=== PATIENT | female | born 1975 | race Two or more races ===

== ENCOUNTER 2020-03-24 11:59 | Inpatient (IN) | payer BC ==
[~2020-03-24] VITALS: Ht 160 cm; Wt 97.9 kg
--- NOTE | 2020-03-24 12:55 | PHYS DOC ---
General Adult EDM: Chief Complaint: HYPERTENSION HPI: HPI: Patient is a 45 year old female with history of diabetes type 2, hypertension, who presents to the ED today complaining of high blood pressure and left upper extremity pain. Patient states this morning she went to see her doctor and she was told her blood pressure systolic was in the 200s and sent to the ED to be evaluated. Patient states she was complaining of left arm pain and chills when she went to see the doctor. Denies any chest pain. Denies any injury. Denies any shortness of breath. She is also stating she had left eye surgery roughly 2 weeks ago and the left eye is still dilated. Review of Systems: Review of Systems: Constitutional: Denies fever or chills. [] Eyes: Reports left eye surgery. Denies change in visual acuity. [] HENT: Denies nasal congestion or sore throat. [] Respiratory: Denies cough or shortness of breath. [] Cardiovascular: Reports high blood pressure. Reports left arm pain, denies any chest pain. GI: Denies abdominal pain, nausea, vomiting, bloody stools or diarrhea. [] : Denies dysuria. [] Musculoskeletal: Denies back pain or joint pain. [] Integument: Denies rash. [] Neurologic: Denies headache, focal weakness or sensory changes. [] Psychiatric: Denies depression or anxiety. [] Heart Score: Risk Factors: Risk Factors: DM, Current or recent (<one month) smoker, HTN, HLP, family h istory of CAD, obesity. Risk Scores: Score 0 - 3: 2.5% MACE over next 6 weeks - Discharge Home Score 4 - 6: 20.3% MACE over next 6 weeks - Admit for Clinical Observation Score 7 - 10: 72.7% MACE over next 6 weeks - Early Invasive Strategies Physical Exam: PE: Constitutional: Well developed, well nourished, no acute distress, non-toxic appearance. [] HENT: Normocephalic, atraumatic, bilateral external ears normal, oropharynx moist, no oral exudates, nose normal. [] Eyes:Right eye- PERRLA, EOMI, conjunctiva normal, no discharge. Left eye is dilated at approximately 3 in size and non responsive to light Neck: Normal range of motion, no tenderness, supple, no stridor. [] Cardiovascular:Heart rate regular rhythm, no murmur [] Lungs & Thorax: Bilateral breath sounds clear to auscultation [] Abdomen: Bowel sounds normal, soft, no tenderness, no masses, no pulsatile masses. [] Skin: Warm, dry, no erythema, no rash. [] Back: No tenderness, no CVA tenderness. [] Extremities: No tenderness, no cyanosis, no clubbing, ROM intact, no edema. [] Neurologic: Alert and oriented X 3, normal motor function, normal sensory function, no focal deficits noted. Cranial nerves II through XII intact Psychologic: Affect normal, judgement normal, mood normal. [] EKG: EKG: [] Radiology/Procedures: Radiology/Procedures: [] Course & Med Decision Making: Course & Med Decision Making Pertinent Labs and Imaging studies reviewed. (See chart for details) This is a 45-year-old female patient presenting to the ED today to be evaluated for left arm pain and high blood pressure that was recorded at the doctor's office a couple minutes prior to coming to the ED. Systolic BP was 200. She is also concerned about her left eye that she had surgery on 2 weeks ago, she has an appointment with antenna specialist on April 01, 2020. Blood pressure on arrival to the ED was 157/66 with a heart rate of 86. CBC with a hemoglobin of 8.0 hematocrit of 23.1, CMP with potassium of 5.9, no EKG changes, BUN 33, creatinine 2.1, patient denies any history of renal failure this is a very poor historian and language barrier is an issue. Blood glucose 363. Patient was given IV fluids in the ED, given Kayexalate. Nephrology was consulted. Spoke with Dr. Ferraro who accepted patient for admission Renard Disclaimer: Renard Disclaimer: This electronic medical record was generated, in whole or in part, using a voice recognition dictation system. Departure Departure Impression: Primary Impression: Hypertension Qualified Codes: I10 - Essential (primary) hypertension Additional Impressions: Acute on chronic renal failure Qualified Codes: N17.9 - Acute kidney failure, unspecified; N18.9 - Chronic kidney disease, unspecified Hyperglycemia Disposition: 09 ADMITTED INPT THIS HOSP Condition: STABLE Referrals: NON,STAFF (PCP) STEFFANY FREDERICK APRN Mar 24, 2020 12:55
--- NOTE | 2020-03-24 13:11 | RAD ---
PORTABLE CHEST 1V History: Reason: high blood pressure / Spl. Instructions: / History: Comparison: None. Findings: No consolidation or pleural effusion. Normal heart size. No pneumothorax. Impression: 1. No acute cardiopulmonary process. Electronically signed by: Venancio Meyers DO (03/24/2020 1:08 PM) [id number]
[2020-03-24 13:17] LABS: BASO # 0.1 x10^3/uL (0.0-0.2); BASO % 1 % (0-3); EOS # 0.6 x10^3/uL (0.0-0.7); EOS % 6 % (0-3); HEMATOCRIT 23.1 % (36.0-47.0); LYMPH # 1.8 x10^3/uL (1.0-4.8); LYMPH % 18 % (24-48); MEAN CORPUSCULAR HEMOGLOBIN 30 pg (25-35); MEAN CORPUSCULAR HGB CONC 35 g/dL (31-37); MEAN CORPUSCULAR VOLUME 85 fL (79-100); MONO # 0.3 x10^3/uL (0.0-1.1); MONO % 3 % (0-9); NEUT # 7.4 x10^3/uL (1.8-7.7); NEUT % 73 % (31-73); PLATELET COUNT 187 x10^3/uL (140-400); RED BLOOD COUNT 2.71 x10^6/uL (3.50-5.40); RED CELL DISTRIBUTION WIDTH 14.7 % (11.5-14.5); WHITE BLOOD COUNT 10.1 x10^3/uL (4.0-11.0)
--- NOTE | 2020-03-24 13:22 | RAD ---
CT HEAD WO CONTRAST Date: 03/24/2020 1:09 PM Clinical Indication: Reason: HTN / Spl. Instructions: / History: Comparison: None. Technique: 5 mm axial tomographic images were obtained of the head without contrast. These were viewed on brain and bone windows. One or more of the following dose reduction techniques were utilized: Automated exposure control (AEC), Adjustment of mA and/or kV according to patient size, Use of iterative reconstruction technique such as ASiR, CT scan done according to ALARA and image gently/image wisely Findings: The brain parenchyma is normal in attenuation. No intra- or extra-axial mass or fluid collection. No acute hemorrhage. The ventricles are normal in size, shape, and morphology. The terrell-white matter junction is normal. The subarachnoid cisterns are patent. Frothy secretions in the right maxillary sinus. Left maxillary sinus mucus retention cyst. The visualized portions of the orbits and globes are normal. The mastoid air cells are clear. The shirt ironer supervisor topogram shows no lytic lesion or fracture. Impression: No acute intracranial process. Frothy secretions in the right maxillary sinus, which could represent acute sinusitis in the appropriate clinical setting. Electronically signed by: Sebastian Santana MD (03/24/2020 1:19 PM) [id number]
[2020-03-24 13:29] LABS: CALCIUM 8.8 mg/dL (8.5-10.1); CREATININE 2.1 mg/dL (0.6-1.0); GFR 25.2; POTASSIUM 5.9 mmol/L (3.5-5.1)
[2020-03-24 13:33] LABS: PROTHROMBIN TIME PATIENT 12.4 SEC (11.7-14.0)
[2020-03-24 13:37] LABS: ALBUMIN 2.7 g/dL (3.4-5.0); ALBUMIN/GLOBULIN RATIO 0.7 (1.0-1.7); MAGNESIUM 2.3 mg/dL (1.8-2.4); TOTAL BILIRUBIN 0.3 mg/dL (0.2-1.0); TOTAL PROTEIN 6.7 g/dL (6.4-8.2)
[2020-03-24 13:44] LABS: BILIRUBIN,URINE NEGATIVE (NEG); CLARITY,URINE CLOUDY; COLOR,URINE YELLOW; NITRITE,URINE NEGATIVE (NEG); PROTEIN,URINE >=300 mg/dL (NEG-TRACE); UROBILINOGEN,URINE 0.2 mg/dL (0.2 mg/dL)
[2020-03-24 13:51] LABS: BARBITURATES NEG (NEG); BENZODIAZEPINES NEG (NEG); CANNABINOIDS NEG (NEG); COCAINE NEG (NEG); METHADONE NEG (NEG); OPIATES NEG (NEG); PHENCYCLIDINE NEG (NEG)
[2020-03-24 13:53] LABS: AMPHETAMINE/METHAMPHETAMINE NEG (NEG)
[2020-03-24 14:01] LABS: BACTERIA,URINE MANY /HPF (0-FEW); HYALINE CASTS, URINE FEW /HPF; RBC,URINE TNTC /HPF (0-2); WBC,URINE >40 /HPF (0-4)
[2020-03-24] MEDS ORDERED: IV NORMAL SALINE 1000ML BAG 1,000 ML IV ONE ×2 (16:15)
[2020-03-24] MEDS ORDERED: ONDANSETRON PF 4 MG/2 ML VIAL. IV PRN (16:15)
[2020-03-24] MEDS ORDERED: MORPHINE SULFATE 2 MG/ML VIAL. IV PRN (16:15)
[2020-03-24] MEDS ORDERED: SODIUM POLYSTYRENE SULFON/SORB 15 GM/60 ML ORAL.SUSP. PO ONE (16:15)
[2020-03-24] MEDS ORDERED: LABETALOL 20 MG/4 ML DISP.SYRIN. IVP ONE (16:45)
[2020-03-24] MEDS ORDERED: SENNOSIDES 8.6 MG TABLET PO PRN (18:00)
[2020-03-24] MEDS ORDERED: POTASSIUM CHLORIDE 20 MEQ TABLET.ER. PO PRN (18:00)
[2020-03-24] MEDS ORDERED: DOCUSATE SODIUM 100 MG CAPSULE. PO PRN (18:00)
[2020-03-24] MEDS ORDERED: MAGNESIUM SULFATE 2GM 50 ML IV SCH (18:00)
[2020-03-24] MEDS ORDERED: DEXTROSE 50% 25 GM / 50ML DISP.SYRIN. IV PRN (18:00)
[2020-03-24] MEDS ORDERED: POTASSIUM CHLORIDE 10MEQ 100 ML IV PRN (18:00)
[2020-03-24] MEDS ORDERED: ONDANSETRON PF 4 MG/2 ML VIAL. IVP PRN (18:00)
[2020-03-24] MEDS ORDERED: ACETAMINOPHEN 650 MG/20.3 ML SOLUTION. GT PRN (18:00)
[2020-03-24] MEDS ORDERED: LABETALOL 20 MG/4 ML DISP.SYRIN. IVP PRN (18:00)
[2020-03-24] MEDS ORDERED: FUROSEMIDE 40 MG/4 ML VIAL. IVP ONE (18:00)
[2020-03-24] MEDS ORDERED: POTASSIUM CHLORIDE 10MEQ 100 ML IV SCH (18:00)
--- NOTE | 2020-03-24 18:07 | PDOC1 ---
History and Physical Date of Service: DOS: DATE: 03/24/20 TIME: 17:55 Chief Complaint: Chief Complain: Elevated blood pressure History of Present Illness: HPI: 45 year old Libyan-speaking female with history of diabetes type 2, hypertension, who presents to the ED today complaining of high blood pressure and left upper extremity pain. Patient states this morning she went to see her doctor and she was told her blood pressure systolic was in the 200s and sent to the ED to be evaluated. Patient states she was complaining of left arm pain and chills when she went to see the doctor. Denies any chest pain. Denies any injury. Denies any shortness of breath. She is also stating she had left eye surgery roughly 2 weeks ago and the left eye is still dilated. Patient is comp liant with all her medications and she did not miss any of her lisinopril dose. Of note, patient also states that she has been having heavy menstrual bleeding in the past 3 months. She states that she was seen by her production team manager and they recommended possible surgery. Past Medical/Surgical History: PMH/PSH: Diabetes type 2 insulin-dependent Hypertension Allergies: Allergies: Coded Allergies: No Known Drug Allergies (Unverified , 03/24/20) Family History: Family History: Reviewed and none reported Social History: Social History: Denies alcohol, tobacco, drug abuse Current Medications: Current Medications Current Medications Ondansetron HCl (Zofran) 4 mg PRN Q8HRS PRN IV NAUSEA/VOMITING; Start 03/24/20 at 16:15; Stop 03/25/20 at 16:14 Morphine Sulfate (Morphine Sulfate) 2 mg PRN Q2HR PRN IV PAIN; Start 03/24/20 at 16:15; Stop 03/25/20 at 16:14 Sodium Chloride 1,000 ml @ 125 mls/hr 1X ONCE IV ; Start 03/24/20 at 16:15; Stop 03/25/20 at 00:14 Sodium Polystyrene Sulfonate (Kayexalate) 30 gm 1X ONCE PO Last administered on 03/24/20at 16:54; Start 03/24/20 at 16:15; Stop 03/24/20 at 16:16; Status DC Sodium Chloride 1,000 ml @ 1,000 mls/hr 1X ONCE IV Last administered on 03/24/20at 16:54; Start 03/24/20 at 16:15; Stop 03/24/20 at 17:14; Status DC Labetalol HCl (Normodyne Iv Push) 20 mg 1X ONCE IVP Last administered on 03/24/20at 16:55; Start 03/24/20 at 16:45; Stop 03/24/20 at 16:46; Status DC ROS: Review of Systems Review of System REVIEW OF SYSTEMS: GENERAL: Denies weakness SKIN: No bruising, hair changes or rashes. EYES: No blurred, double or loss of vision. NOSE AND THROAT: No history of nosebleeds, hoarseness or sore throat. HEART: No history of palpitations, chest pain or shortness of breath on exertion. LUNGS: Denies cough, hemoptysis, wheezing or shortness of breath. GASTROINTESTINAL: Denies changes in appetite, nausea, vomiting, diarrhea or constipation. GENITOURINARY: No history of frequency, urgency, hesitancy or nocturia. NEUROLOGIC: Denies history of numbness, tingling, or tremor. PSYCHIATRIC: No history of panic, anxiety or depression. ENDOCRINE: No history of heat or cold intolerance, polyuria or polydipsia. EXTREMITIES: Denies joint pain, pain on walking or stiffness. Physical Exam: Vital Signs: Vital Signs Date Time Temp Pulse Resp B/P (MAP) Pulse Ox O2 Delivery O2 Flow Rate FiO2 03/24/20 16:55 86 190/83 03/24/20 15:53 97 03/24/20 11:59 97.9 16 Room Air 97.9 Physcial Exam: GEN: No apparent distress. Alert and oriented HEENT: Normal cephalic, atraumatic, external auditory canals are patent EYES: Extraocular muscles are intact, pupil are equally round and reactive to light and accommodation MUSCULOSKELETAL: Well developed , well nourished, good range of motion ENDOCRINE: No thyromegaly was palpated LYMPHATICS: No cervical chain or axillary nodes were noted HEMATOPOIETIC: No bruising NECK: Supple, no JVD, no thyromegaly was noted LUNGS: Clear to auscultation in all lung cabrera without rhonchi or wheezing HEART: RRR, S!, S2 present. Peripheral pulses intact, no obvious murmurs noted ABDOMEN: Soft, nontender. Positive bowel sounds, no organomegaly, normal bowel sounds EXTREMITIES: Without clubbing, cyanosis, or edema. Pedal pulses intact. Negative Homans sign NEUROLOGIC: Normal speech and tone. A&O x 3, moves all extremities, no obvious focal deficits PSYCHIATRIC: Normal affect, normal mood. Stable SKIN: No ulcerations or rashes, good skin turgor, no jaundice VASCULAR: Good capillary refill, neurovascular bundle appears to be intact Labs: Labs: Laboratory Tests Test 03/24/20 13:00 03/24/20 13:20 White Blood Count 10.1 x10^3/uL (4.0-11.0) Red Blood Count 2.71 x10^6/uL (3.50-5.40) Hemoglobin 8.0 g/dL (12.0-15.5) Hematocrit 23.1 % (36.0-47.0) Mean Corpuscular Volume 85 fL (79-100) Mean Corpuscular Hemoglobin 30 pg (25-35) Mean Corpuscular Hemoglobin Concent 35 g/dL (31-37) Red Cell Distribution Width 14.7 % (11.5-14.5) Platelet Count 187 x10^3/uL (140-400) Neutrophils (%) (Auto) 73 % (31-73) Lymphocytes (%) (Auto) 18 % (24-48) Monocytes (%) (Auto) 3 % (0-9) Eosinophils (%) (Auto) 6 % (0-3) Basophils (%) (Auto) 1 % (0-3) Neutrophils # (Auto) 7.4 x10^3/uL (1.8-7.7) Lymphocytes # (Auto) 1.8 x10^3/uL (1.0-4.8) Monocytes # (Auto) 0.3 x10^3/uL (0.0-1.1) Eosinophils # (Auto) 0.6 x10^3/uL (0.0-0.7) Basophils # (Auto) 0.1 x10^3/uL (0.0-0.2) Prothrombin Time 12.4 SEC (11.7-14.0) Prothromb Time International Ratio 1.0 (0.8-1.1) Sodium Level 134 mmol/L (136-145) Potassium Level 5.9 mmol/L (3.5-5.1) Chloride Level 104 mmol/L (98-107) Carbon Dioxide Level 20 mmol/L (21-32) Anion Gap 10 (6-14) Blood Urea Nitrogen 33 mg/dL (7-20) Creatinine 2.1 mg/dL (0.6-1.0) Estimated GFR (Cockcroft-Gault) 25.2 BUN/Creatinine Ratio 16 (6-20) Glucose Level 363 mg/dL (70-99) Calcium Level 8.8 mg/dL (8.5-10.1) Magnesium Level 2.3 mg/dL (1.8-2.4) Total Bilirubin 0.3 mg/dL (0.2-1.0) Aspartate Amino Transf (AST/SGOT) 16 U/L (15-37) Alanine Aminotransferase (ALT/SGPT) 26 U/L (14-59) Alkaline Phosphatase 105 U/L (46-116) Troponin I Quantitative < 0.017 ng/mL (0.000-0.055) OK-Oir-E-Type Natriuretic Peptide 1444 pg/mL (0-124) Total Protein 6.7 g/dL (6.4-8.2) Albumin 2.7 g/dL (3.4-5.0) Albumin/Globulin Ratio 0.7 (1.0-1.7) Thyroid Stimulating Hormone (TSH) 1.772 uIU/mL (0.358-3.74) Urine Collection Type Unknown Urine Color Yellow Urine Clarity Cloudy Urine pH 6.0 (<5.0-8.0) Urine Specific Porter 1.020 (1.000-1.030) Urine Protein >=300 mg/dL (NEG-TRACE) Urine Glucose (UA) >=1000 mg/dL (NEG) Urine Ketones (Stick) Negative mg/dL (NEG) Urine Blood Large (NEG) Urine Nitrite Negative (NEG) Urine Bilirubin Negative (NEG) Urine Urobilinogen Dipstick 0.2 mg/dL (0.2 mg/dL) Urine Leukocyte Esterase Small (NEG) Urine RBC Tntc /HPF (0-2) Urine WBC >40 /HPF (0-4) Urine Squamous Epithelial Cells Few /LPF Urine Bacteria Many /HPF (0-FEW) Urine Hyaline Casts Few /HPF Urine Opiates Screen Neg (NEG) Urine Methadone Screen Neg (NEG) Urine Barbiturates Neg (NEG) Urine Phencyclidine Screen Neg (NEG) Urine Amphetamine/Methamphetamine Neg (NEG) Urine Benzodiazepines Screen Neg (NEG) Urine Cocaine Screen Neg (NEG) Urine Cannabinoids Screen Neg (NEG) Urine Ethyl Alcohol Pos (NEG) Laboratory Tests Test 03/24/20 13:00 03/24/20 13:20 White Blood Count 10.1 x10^3/uL (4.0-11.0) Red Blood Count 2.71 x10^6/uL (3.50-5.40) Hemoglobin 8.0 g/dL (12.0-15.5) Hematocrit 23.1 % (36.0-47.0) Mean Corpuscular Volume 85 fL (79-100) Mean Corpuscular Hemoglobin 30 pg (25-35) Mean Corpuscular Hemoglobin Concent 35 g/dL (31-37) Red Cell Distribution Width 14.7 % (11.5-14.5) Platelet Count 187 x10^3/uL (140-400) Neutrophils (%) (Auto) 73 % (31-73) Lymphocytes (%) (Auto) 18 % (24-48) Monocytes (%) (Auto) 3 % (0-9) Eosinophils (%) (Auto) 6 % (0-3) Basophils (%) (Auto) 1 % (0-3) Neutrophils # (Auto) 7.4 x10^3/uL (1.8-7.7) Lymphocytes # (Auto) 1.8 x10^3/uL (1.0-4.8) Monocytes # (Auto) 0.3 x10^3/uL (0.0-1.1) Eosinophils # (Auto) 0.6 x10^3/uL (0.0-0.7) Basophils # (Auto) 0.1 x10^3/uL (0.0-0.2) Prothrombin Time 12.4 SEC (11.7-14.0) Prothromb Time International Ratio 1.0 (0.8-1.1) Sodium Level 134 mmol/L (136-145) Potassium Level 5.9 mmol/L (3.5-5.1) Chloride Level 104 mmol/L (98-107) Carbon Dioxide Level 20 mmol/L (21-32) Anion Gap 10 (6-14) Blood Urea Nitrogen 33 mg/dL (7-20) Creatinine 2.1 mg/dL (0.6-1.0) Estimated GFR (Cockcroft-Gault) 25.2 BUN/Creatinine Ratio 16 (6-20) Glucose Level 363 mg/dL (70-99) Calcium Level 8.8 mg/dL (8.5-10.1) Magnesium Level 2.3 mg/dL (1.8-2.4) Total Bilirubin 0.3 mg/dL (0.2-1.0) Aspartate Amino Transf (AST/SGOT) 16 U/L (15-37) Alanine Aminotransferase (ALT/SGPT) 26 U/L (14-59) Alkaline Phosphatase 105 U/L (46-116) Troponin I Quantitative < 0.017 ng/mL (0.000-0.055) TE-Nqe-T-Type Natriuretic Peptide 1444 pg/mL (0-124) Total Protein 6.7 g/dL (6.4-8.2) Albumin 2.7 g/dL (3.4-5.0) Albumin/Globulin Ratio 0.7 (1.0-1.7) Thyroid Stimulating Hormone (TSH) 1.772 uIU/mL (0.358-3.74) Urine Collection Type Unknown Urine Color Yellow Urine Clarity Cloudy Urine pH 6.0 (<5.0-8.0) Urine Specific Porter 1.020 (1.000-1.030) Urine Protein >=300 mg/dL (NEG-TRACE) Urine Glucose (UA) >=1000 mg/dL (NEG) Urine Ketones (Stick) Negative mg/dL (NEG) Urine Blood Large (NEG) Urine Nitrite Negative (NEG) Urine Bilirubin Negative (NEG) Urine Urobilinogen Dipstick 0.2 mg/dL (0.2 mg/dL) Urine Leukocyte Esterase Small (NEG) Urine RBC Tntc /HPF (0-2) Urine WBC >40 /HPF (0-4) Urine Squamous Epithelial Cells Few /LPF Urine Bacteria Many /HPF (0-FEW) Urine Hyaline Casts Few /HPF Urine Opiates Screen Neg (NEG) Urine Methadone Screen Neg (NEG) Urine Barbiturates Neg (NEG) Urine Phencyclidine Screen Neg (NEG) Urine Amphetamine/Methamphetamine Neg (NEG) Urine Benzodiazepines Screen Neg (NEG) Urine Cocaine Screen Neg (NEG) Urine Cannabinoids Screen Neg (NEG) Urine Ethyl Alcohol Pos (NEG) Images: Images CXR Impression: 1. No acute cardiopulmonary process. Head CT Impression: No acute intracranial process. Frothy secretions in the right maxillary sinus, which could represent acute sinusitis in the appropriate clinical setting. Assessment/Plan Assessment/Plan Hypertensive urgency Normocytic anemia due to iron deficiency versus menorrhagia, possible fibroids? Acute electrolyte abnormalityhyponatremia, hyperkalemia with no acute EKG changes KASEY due to vasomotor nephropathy unclear chronic kidney disease Elevated BNP Severe protein malnutrition History of diabetes mellitus insulin-dependent Hyperglycemia uncontrolled Admit to medicine for further management Nephrology consult Gynecology consult Labetalol as needed for systolics greater than 180 Continue telemetry monitoring Strict I's and O's 20 mg IV Lasix 1x1 Heparin for DVT prophylaxis ADA diet Full code Discussed with RN and SW Disposition inpatient care as above Surrogate decision maker is Justifications for Admission Other Justification HTN Urgency DAMASO YO MD Mar 24, 2020 18:07
[2020-03-24] MEDS ORDERED: ELECTROLYTE (NON-ICU) PROTOCOL. MC PRN (20:00)
[2020-03-24] MEDS ORDERED: MAGNESIUM OXIDE 400 MG TABLET PO SCH (21:00)
[2020-03-24 21:30] VITALS: BP 99/74
--- NOTE | 2020-03-24 21:30 | NUR ---
The patient, JASSI ROA, 45 y/o, F admitted by DAMASO YO MD, was given written information regarding hospital policies, unit procedures and contact persons. Valuables were checked and left with her.
[2020-03-24] MEDS: HEPARIN for SUB-Q USE 5,000 UNIT/ML VIAL. SQ SCH (21:49)
[2020-03-24 23:00] VITALS: BP 140/66
[2020-03-25 03:00] VITALS: BP 144/76
[2020-03-25 07:00] VITALS: BP 153/67
[2020-03-25 08:32] LABS: BASO % 1 % (0-3); EOS # 0.4 x10^3/uL (0.0-0.7); EOS % 4 % (0-3); HEMATOCRIT 21.5 % (36.0-47.0); HEMOGLOBIN 7.3 g/dL (12.0-15.5); LYMPH # 1.9 x10^3/uL (1.0-4.8); LYMPH % 20 % (24-48); MEAN CORPUSCULAR HEMOGLOBIN 29 pg (25-35); MEAN CORPUSCULAR HGB CONC 34 g/dL (31-37); MEAN CORPUSCULAR VOLUME 86 fL (79-100); MONO # 0.4 x10^3/uL (0.0-1.1); MONO % 5 % (0-9); NEUT # 6.4 x10^3/uL (1.8-7.7); NEUT % 70 % (31-73); PLATELET COUNT 176 x10^3/uL (140-400); RED CELL DISTRIBUTION WIDTH 14.6 % (11.5-14.5); WHITE BLOOD COUNT 9.2 x10^3/uL (4.0-11.0)
[2020-03-25 08:50] LABS: ALBUMIN 2.3 g/dL (3.4-5.0); ALBUMIN/GLOBULIN RATIO 0.7 (1.0-1.7); CALCIUM 8.1 mg/dL (8.5-10.1); CREATININE 1.9 mg/dL (0.6-1.0); GFR 28.3; MAGNESIUM 2.2 mg/dL (1.8-2.4); PHOSPHORUS 4.5 mg/dL (2.6-4.7); POTASSIUM 4.7 mmol/L (3.5-5.1); TOTAL BILIRUBIN 0.3 mg/dL (0.2-1.0); TOTAL PROTEIN 5.8 g/dL (6.4-8.2)
[2020-03-25] MEDS: INSULIN LISPRO 300 UNITS/3 ML VIAL. SQ SCH ×3 (09:23→17:29)
[2020-03-25] MEDS: HEPARIN for SUB-Q USE 5,000 UNIT/ML VIAL. SQ SCH ×2 (09:24→21:47)
--- NOTE | 2020-03-25 09:42 | PDOC2 ---
CONSULT Date of Consult Date of Consult DATE: 03/25/20 TIME: 09:42 Reason for Consult Reason for Consult: KASEY Identification/Chief Complaint Chief Complaint I hv been vomiting for past 2 weeks " Source Source: Caregiver, Chart review History of Present Illness Reason for Visit: Pt is a 45 year old Kosovan-speaking female, with history of diabetes type 2, hypertension, who presents to the ED on 03/24 complaining of high blood pressure and left upper extremity pain. She reports she has been vomiting multiple times for past 2 weeks, no vomiting today She denies any abdominal pain. No CP, denies Fever , was complaining of left arm pain and chills when she went to see the doctor.Denies SOB . She is also stating she had left eye surgery roughly 2 weeks ago and the left eye is still dilated. Patient is compliant with all her medications and she did not miss any of her lisinopril . She has been on Lisinopril for long time . She states she was started on diuretics by pcp but she did'nt notice any difference so she stopped taking it She has been taking Ibuprofen 400 mg PO every day for the past 2 weeks . She is c/o burning in urination . Denies noticing any blood in Urine . She states she notice mild swelling in her LE recently and maybe some weight gain She is not aware of her baseline labs. She sees her PCP q 3 months She is on Insulin and Metformin as Op She has been having heavy menstrual bleeding in the past 3 months. 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 Past Medical History Past Medical History Diabetes type 2 insulin-dependent Hypertension Family History Family History Reviewed and none reported, No Hx of CKD or ESRD Social History Social History Denies alcohol, tobacco, drug abuse Current Problem List Problem List Problems Medical Problems: (1) Acute on chronic renal failure Status: Acute (2) Hyperglycemia Status: Acute (3) Hypertension Status: Acute Current Medications Current Medications Current Medications Ondansetron HCl (Zofran) 4 mg PRN Q8HRS PRN IV NAUSEA/VOMITING; Start 03/24/20 at 16:15; Stop 03/25/20 at 16:14 Morphine Sulfate (Morphine Sulfate) 2 mg PRN Q2HR PRN IV PAIN; Start 03/24/20 at 16:15; Stop 03/25/20 at 16:14 Sodium Chloride 1,000 ml @ 125 mls/hr 1X ONCE IV Last administered on 03/24/20at 19:50; Start 03/24/20 at 16:15; Stop 03/25/20 at 00:14; Status DC Sodium Polystyrene Sulfonate (Kayexalate) 30 gm 1X ONCE PO Last administered on 03/24/20at 16:54; Start 03/24/20 at 16:15; Stop 03/24/20 at 16:16; Status DC Sodium Chloride 1,000 ml @ 1,000 mls/hr 1X ONCE IV Last administered on 03/24/20at 16:54; Start 03/24/20 at 16:15; Stop 03/24/20 at 17:14; Status DC Labetalol HCl (Normodyne Iv Push) 20 mg 1X ONCE IVP Last administered on 03/24/20at 16:55; Start 03/24/20 at 16:45; Stop 03/24/20 at 16:46; Status DC Sennosides (Senna) 17.2 mg PRN BID PRN PO CONSTIPATION; Start 03/24/20 at 18:00 Docusate Sodium (Colace) 100 mg PRN DAILY PRN PO HARD STOOLS; Start 03/24/20 at 18:00 Ondansetron HCl (Zofran) 4 mg PRN Q6HRS PRN IVP NAUSEA/VOMITING; Start 03/24/20 at 18:00 Potassium Chloride (Klor-Con) 40 meq 1X PRN PO PER PROTOCOL; Start 03/24/20 at 18:00; Status UNV Magnesium Oxide (Magnesium Oxide) 400 mg BID PO ; Start 03/24/20 at 21:00; Stop 03/26/20 at 09:01; Status UNV Potassium Chloride/Water 100 ml @ 100 mls/hr Q1H IV ; Start 03/24/20 at 18:00; Stop 03/24/20 at 21:59; Status UNV Magnesium Sulfate 50 ml @ 25 mls/hr Q24H IV ; Start 03/24/20 at 18:00; Stop 03/24/20 at 19:50; Status DC Potassium Chloride/Water 100 ml @ 100 mls/hr Q1H PRN IV low k; Start 03/24/20 at 18:00; Status UNV Insulin Human Lispro (HumaLOG) 0-7 UNITS TIDWMEALS SQ Last administered on 03/25/20at 09:23; Start 03/25/20 at 08:00 Dextrose (Dextrose 50%-Water Syringe) 12.5 gm PRN Q15MIN PRN IV SEE COMMENTS; Start 03/24/20 at 18:00 Acetaminophen (Tylenol) 650 mg PRN Q4HRS PRN GT TEMP OVER 100.4F OR MILD PAIN; Start 03/24/20 at 18:00 Heparin Sodium (Porcine) (Heparin Sodium) 5,000 unit Q12HR SQ Last administered on 03/25/20at 09:24; Start 03/24/20 at 21:00 Labetalol HCl (Normodyne Iv Push) 10 mg PRN Q3HRS PRN IVP HYPERTENSION; Start 03/24/20 at 18:00 Furosemide (Lasix) 20 mg 1X ONCE IVP Last administered on 03/24/20at 21:47; Start 03/24/20 at 18:00; Stop 03/24/20 at 18:01; Status DC Info (Non-Icu Electrolyte Protocol) 1 ea CONT PRN PRN MC SEE COMMENTS; Start 03/24/20 at 20:00 Allergies Allergies: Coded Allergies: No Known Drug Allergies (Unverified , 03/24/20) ROS Review of System As per HPI, rest of the ROS is negative Physical Exam Physical Exam GEN: No apparent distress. HEENT: OM moist NECK: Supple LUNGS: Clear to auscultation, Non labored HEART: RRR, S!, S2 present. ABDOMEN: Soft, nontender. Positive bowel sounds, no organomegaly, EXTREMITIES: No clubbing, cyanosis. Trace Bilat LE edema + NEUROLOGIC: NA&O x 3, moves all extremities, no obvious focal deficits PSYCHIATRIC: Normal affect, normal mood. SKIN: No ulcerations or rashes, good skin turgor, no jaundice No Hanson, o SP or CVA tenderness Vital Signs Vital Signs Date Time Temp Pulse Resp B/P (MAP) Pulse Ox O2 Delivery O2 Flow Rate FiO2 03/25/20 07:00 98.5 93 18 153/67 (95) 97 Room Air 98.5 Assessment & Plan KASEY - Vasomotor, Vomiting , Use of NSAID's ,UTI Baseline unknown to me , Home meds unknown, she does remember she takes Lisinopril Recd 1 Lt IVF in ER, currently not on Fluids, BP high , Currently Cr trending down, Monitor E-Lytes stable, no emergent indication for dialysis , supportive care, strict I/O, avoid nephrotoxins , Obtain records from PCP, Renal US Vomiting - at home, Monitor UTI-pt symptomatic , Defer to primary DM- per PCP, Hold Metformin Anemia -? Acute, Baseline unknown, 2/2 Menorrhagia Consider prieto for anemia, defer to primary HTN - Systolic in 200's, much better now Menorrhagia Gynec consulted Labs Labs Laboratory Tests Test 03/24/20 13:00 03/24/20 13:20 03/24/20 17:00 03/25/20 07:35 White Blood Count 10.1 x10^3/uL (4.0-11.0) Red Blood Count 2.71 x10^6/uL (3.50-5.40) Hemoglobin 8.0 g/dL (12.0-15.5) Hematocrit 23.1 % (36.0-47.0) Mean Corpuscular Volume 85 fL (79-100) Mean Corpuscular Hemoglobin 30 pg (25-35) Mean Corpuscular Hemoglobin Concent 35 g/dL (31-37) Red Cell Distribution Width 14.7 % (11.5-14.5) Platelet Count 187 x10^3/uL (140-400) Neutrophils (%) (Auto) 73 % (31-73) Lymphocytes (%) (Auto) 18 % (24-48) Monocytes (%) (Auto) 3 % (0-9) Eosinophils (%) (Auto) 6 % (0-3) Basophils (%) (Auto) 1 % (0-3) Neutrophils # (Auto) 7.4 x10^3/uL (1.8-7.7) Lymphocytes # (Auto) 1.8 x10^3/uL (1.0-4.8) Monocytes # (Auto) 0.3 x10^3/uL (0.0-1.1) Eosinophils # (Auto) 0.6 x10^3/uL (0.0-0.7) Basophils # (Auto) 0.1 x10^3/uL (0.0-0.2) Prothrombin Time 12.4 SEC (11.7-14.0) Prothromb Time International Ratio 1.0 (0.8-1.1) Sodium Level 134 mmol/L (136-145) Potassium Level 5.9 mmol/L (3.5-5.1) Chloride Level 104 mmol/L (98-107) Carbon Dioxide Level 20 mmol/L (21-32) Anion Gap 10 (6-14) Blood Urea Nitrogen 33 mg/dL (7-20) Creatinine 2.1 mg/dL (0.6-1.0) Estimated GFR (Cockcroft-Gault) 25.2 BUN/Creatinine Ratio 16 (6-20) Glucose Level 363 mg/dL (70-99) Calcium Level 8.8 mg/dL (8.5-10.1) Magnesium Level 2.3 mg/dL (1.8-2.4) Total Bilirubin 0.3 mg/dL (0.2-1.0) Aspartate Amino Transf (AST/SGOT) 16 U/L (15-37) Alanine Aminotransferase (ALT/SGPT) 26 U/L (14-59) Alkaline Phosphatase 105 U/L (46-116) Troponin I Quantitative < 0.017 ng/mL (0.000-0.055) < 0.017 ng/mL (0.000-0.055) GI-Reu-H-Type Natriuretic Peptide 1444 pg/mL (0-124) Total Protein 6.7 g/dL (6.4-8.2) Albumin 2.7 g/dL (3.4-5.0) Albumin/Globulin Ratio 0.7 (1.0-1.7) Thyroid Stimulating Hormone (TSH) 1.772 uIU/mL (0.358-3.74) Urine Collection Type Unknown Urine Color Yellow Urine Clarity Cloudy Urine pH 6.0 (<5.0-8.0) Urine Specific Downing 1.020 (1.000-1.030) Urine Protein >=300 mg/dL (NEG-TRACE) Urine Glucose (UA) >=1000 mg/dL (NEG) Urine Ketones (Stick) Negative mg/dL (NEG) Urine Blood Large (NEG) Urine Nitrite Negative (NEG) Urine Bilirubin Negative (NEG) Urine Urobilinogen Dipstick 0.2 mg/dL (0.2 mg/dL) Urine Leukocyte Esterase Small (NEG) Urine RBC Tntc /HPF (0-2) Urine WBC >40 /HPF (0-4) Urine Squamous Epithelial Cells Few /LPF Urine Bacteria Many /HPF (0-FEW) Urine Hyaline Casts Few /HPF Urine Opiates Screen Neg (NEG) Urine Methadone Screen Neg (NEG) Urine Barbiturates Neg (NEG) Urine Phencyclidine Screen Neg (NEG) Urine Amphetamine/Methamphetamine Neg (NEG) Urine Benzodiazepines Screen Neg (NEG) Urine Cocaine Screen Neg (NEG) Urine Cannabinoids Screen Neg (NEG) Urine Ethyl Alcohol Pos (NEG) Glucose (Fingerstick) 198 mg/dL (70-99) Test 03/25/20 08:16 White Blood Count 9.2 x10^3/uL (4.0-11.0) Red Blood Count 2.50 x10^6/uL (3.50-5.40) Hemoglobin 7.3 g/dL (12.0-15.5) Hematocrit 21.5 % (36.0-47.0) Mean Corpuscular Volume 86 fL (79-100) Mean Corpuscular Hemoglobin 29 pg (25-35) Mean Corpuscular Hemoglobin Concent 34 g/dL (31-37) Red Cell Distribution Width 14.6 % (11.5-14.5) Platelet Count 176 x10^3/uL (140-400) Neutrophils (%) (Auto) 70 % (31-73) Lymphocytes (%) (Auto) 20 % (24-48) Monocytes (%) (Auto) 5 % (0-9) Eosinophils (%) (Auto) 4 % (0-3) Basophils (%) (Auto) 1 % (0-3) Neutrophils # (Auto) 6.4 x10^3/uL (1.8-7.7) Lymphocytes # (Auto) 1.9 x10^3/uL (1.0-4.8) Monocytes # (Auto) 0.4 x10^3/uL (0.0-1.1) Eosinophils # (Auto) 0.4 x10^3/uL (0.0-0.7) Basophils # (Auto) 0.0 x10^3/uL (0.0-0.2) Sodium Level 139 mmol/L (136-145) Potassium Level 4.7 mmol/L (3.5-5.1) Chloride Level 108 mmol/L (98-107) Carbon Dioxide Level 21 mmol/L (21-32) Anion Gap 10 (6-14) Blood Urea Nitrogen 29 mg/dL (7-20) Creatinine 1.9 mg/dL (0.6-1.0) Estimated GFR (Cockcroft-Gault) 28.3 BUN/Creatinine Ratio 15 (6-20) Glucose Level 216 mg/dL (70-99) Calcium Level 8.1 mg/dL (8.5-10.1) Phosphorus Level 4.5 mg/dL (2.6-4.7) Magnesium Level 2.2 mg/dL (1.8-2.4) Total Bilirubin 0.3 mg/dL (0.2-1.0) Aspartate Amino Transf (AST/SGOT) 12 U/L (15-37) Alanine Aminotransferase (ALT/SGPT) 22 U/L (14-59) Alkaline Phosphatase 91 U/L (46-116) Total Protein 5.8 g/dL (6.4-8.2) Albumin 2.3 g/dL (3.4-5.0) Albumin/Globulin Ratio 0.7 (1.0-1.7) Laboratory Tests Test 03/24/20 13:00 03/24/20 13:20 03/24/20 17:00 03/25/20 07:35 White Blood Count 10.1 x10^3/uL (4.0-11.0) Red Blood Count 2.71 x10^6/uL (3.50-5.40) Hemoglobin 8.0 g/dL (12.0-15.5) Hematocrit 23.1 % (36.0-47.0) Mean Corpuscular Volume 85 fL (79-100) Mean Corpuscular Hemoglobin 30 pg (25-35) Mean Corpuscular Hemoglobin Concent 35 g/dL (31-37) Red Cell Distribution Width 14.7 % (11.5-14.5) Platelet Count 187 x10^3/uL (140-400) Neutrophils (%) (Auto) 73 % (31-73) Lymphocytes (%) (Auto) 18 % (24-48) Monocytes (%) (Auto) 3 % (0-9) Eosinophils (%) (Auto) 6 % (0-3) Basophils (%) (Auto) 1 % (0-3) Neutrophils # (Auto) 7.4 x10^3/uL (1.8-7.7) Lymphocytes # (Auto) 1.8 x10^3/uL (1.0-4.8) Monocytes # (Auto) 0.3 x10^3/uL (0.0-1.1) Eosinophils # (Auto) 0.6 x10^3/uL (0.0-0.7) Basophils # (Auto) 0.1 x10^3/uL (0.0-0.2) Prothrombin Time 12.4 SEC (11.7-14.0) Prothromb Time International Ratio 1.0 (0.8-1.1) Sodium Level 134 mmol/L (136-145) Potassium Level 5.9 mmol/L (3.5-5.1) Chloride Level 104 mmol/L (98-107) Carbon Dioxide Level 20 mmol/L (21-32) Anion Gap 10 (6-14) Blood Urea Nitrogen 33 mg/dL (7-20) Creatinine 2.1 mg/dL (0.6-1.0) Estimated GFR (Cockcroft-Gault) 25.2 BUN/Creatinine Ratio 16 (6-20) Glucose Level 363 mg/dL (70-99) Calcium Level 8.8 mg/dL (8.5-10.1) Magnesium Level 2.3 mg/dL (1.8-2.4) Total Bilirubin 0.3 mg/dL (0.2-1.0) Aspartate Amino Transf (AST/SGOT) 16 U/L (15-37) Alanine Aminotransferase (ALT/SGPT) 26 U/L (14-59) Alkaline Phosphatase 105 U/L (46-116) Troponin I Quantitative < 0.017 ng/mL (0.000-0.055) < 0.017 ng/mL (0.000-0.055) ZE-Oxh-C-Type Natriuretic Peptide 1444 pg/mL (0-124) Total Protein 6.7 g/dL (6.4-8.2) Albumin 2.7 g/dL (3.4-5.0) Albumin/Globulin Ratio 0.7 (1.0-1.7) Thyroid Stimulating Hormone (TSH) 1.772 uIU/mL (0.358-3.74) Urine Collection Type Unknown Urine Color Yellow Urine Clarity Cloudy Urine pH 6.0 (<5.0-8.0) Urine Specific Downing 1.020 (1.000-1.030) Urine Protein >=300 mg/dL (NEG-TRACE) Urine Glucose (UA) >=1000 mg/dL (NEG) Urine Ketones (Stick) Negative mg/dL (NEG) Urine Blood Large (NEG) Urine Nitrite Negative (NEG) Urine Bilirubin Negative (NEG) Urine Urobilinogen Dipstick 0.2 mg/dL (0.2 mg/dL) Urine Leukocyte Esterase Small (NEG) Urine RBC Tntc /HPF (0-2) Urine WBC >40 /HPF (0-4) Urine Squamous Epithelial Cells Few /LPF Urine Bacteria Many /HPF (0-FEW) Urine Hyaline Casts Few /HPF Urine Opiates Screen Neg (NEG) Urine Methadone Screen Neg (NEG) Urine Barbiturates Neg (NEG) Urine Phencyclidine Screen Neg (NEG) Urine Amphetamine/Methamphetamine Neg (NEG) Urine Benzodiazepines Screen Neg (NEG) Urine Cocaine Screen Neg (NEG) Urine Cannabinoids Screen Neg (NEG) Urine Ethyl Alcohol Pos (NEG) Glucose (Fingerstick) 198 mg/dL (70-99) Test 03/25/20 08:16 White Blood Count 9.2 x10^3/uL (4.0-11.0) Red Blood Count 2.50 x10^6/uL (3.50-5.40) Hemoglobin 7.3 g/dL (12.0-15.5) Hematocrit 21.5 % (36.0-47.0) Mean Corpuscular Volume 86 fL (79-100) Mean Corpuscular Hemoglobin 29 pg (25-35) Mean Corpuscular Hemoglobin Concent 34 g/dL (31-37) Red Cell Distribution Width 14.6 % (11.5-14.5) Platelet Count 176 x10^3/uL (140-400) Neutrophils (%) (Auto) 70 % (31-73) Lymphocytes (%) (Auto) 20 % (24-48) Monocytes (%) (Auto) 5 % (0-9) Eosinophils (%) (Auto) 4 % (0-3) Basophils (%) (Auto) 1 % (0-3) Neutrophils # (Auto) 6.4 x10^3/uL (1.8-7.7) Lymphocytes # (Auto) 1.9 x10^3/uL (1.0-4.8) Monocytes # (Auto) 0.4 x10^3/uL (0.0-1.1) Eosinophils # (Auto) 0.4 x10^3/uL (0.0-0.7) Basophils # (Auto) 0.0 x10^3/uL (0.0-0.2) Sodium Level 139 mmol/L (136-145) Potassium Level 4.7 mmol/L (3.5-5.1) Chloride Level 108 mmol/L (98-107) Carbon Dioxide Level 21 mmol/L (21-32) Anion Gap 10 (6-14) Blood Urea Nitrogen 29 mg/dL (7-20) Creatinine 1.9 mg/dL (0.6-1.0) Estimated GFR (Cockcroft-Gault) 28.3 BUN/Creatinine Ratio 15 (6-20) Glucose Level 216 mg/dL (70-99) Calcium Level 8.1 mg/dL (8.5-10.1) Phosphorus Level 4.5 mg/dL (2.6-4.7) Magnesium Level 2.2 mg/dL (1.8-2.4) Total Bilirubin 0.3 mg/dL (0.2-1.0) Aspartate Amino Transf (AST/SGOT) 12 U/L (15-37) Alanine Aminotransferase (ALT/SGPT) 22 U/L (14-59) Alkaline Phosphatase 91 U/L (46-116) Total Protein 5.8 g/dL (6.4-8.2) Albumin 2.3 g/dL (3.4-5.0) Albumin/Globulin Ratio 0.7 (1.0-1.7) Review All relevant outside records, renal labs, imaging studies, telemetry/EKG's were reviewed. Images Images No consolidation or pleural effusion. Normal heart size. No pneumothorax. Impression: 1. No acute cardiopulmonary process. BELKYS HERNANDEZ MD Mar 25, 2020 09:42
--- NOTE | 2020-03-25 10:05 | PDOC2 ---
CONSULT Date of Consult Date of Consult DATE: 03/25/20 TIME: 10:04 Reason for Consult Reason for Consult: Menorrhagia History of Present Illness Reason for Visit: 45y admitted to the hospital for HTN urgency. 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 She was found to have an extremely high BP so she was sent to the hospital. She has never had an episode like this before. During the course of her w/u and tx, the pt reported that she has had heavy periods for the last 2 yrs. She has discussed with her PCP. She states that she has taken Fe for this and adjusted her diet. Discussed tx options for menorrhagia with pt including medical and surgical. She states that she has discussed surgical options with her doctor including a hysterectomy or a D&C. She has never attempted hormonal contraception for the bleeding. The pt also was found to have ESRD (ARF). She states this found a month ago when she was undergoing routine screening labs. She states that she has never had dialysis. 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 Never hormonal contraception No BTL 12yo / every 28 days / typically flows for 6 days, all days heavy SH: no tob, no EtOH FH: noncontributory Current Problem List Problem List Problems Medical Problems: (1) Acute on chronic renal failure Status: Acute (2) Hyperglycemia Status: Acute (3) Hypertension Status: Acute Current Medications Current Medications Current Medications Ondansetron HCl (Zofran) 4 mg PRN Q8HRS PRN IV NAUSEA/VOMITING; Start 03/24/20 at 16:15; Stop 03/25/20 at 16:14 Morphine Sulfate (Morphine Sulfate) 2 mg PRN Q2HR PRN IV PAIN; Start 03/24/20 at 16:15; Stop 03/25/20 at 16:14 Sodium Chloride 1,000 ml @ 125 mls/hr 1X ONCE IV Last administered on at 19:50; Start 03/24/20 at 16:15; Stop 03/25/20 at 00:14; Status DC Sodium Polystyrene Sulfonate (Kayexalate) 30 gm 1X ONCE PO Last administered on 03/24/20at 16:54; Start 03/24/20 at 16:15; Stop 03/24/20 at 16:16; Status DC Sodium Chloride 1,000 ml @ 1,000 mls/hr 1X ONCE IV Last administered on 03/24/20at 16:54; Start 03/24/20 at 16:15; Stop 03/24/20 at 17:14; Status DC Labetalol HCl (Normodyne Iv Push) 20 mg 1X ONCE IVP Last administered on 03/24/20at 16:55; Start 03/24/20 at 16:45; Stop 03/24/20 at 16:46; Status DC Sennosides (Senna) 17.2 mg PRN BID PRN PO CONSTIPATION; Start 03/24/20 at 18:00 Docusate Sodium (Colace) 100 mg PRN DAILY PRN PO HARD STOOLS; Start 03/24/20 at 18:00 Ondansetron HCl (Zofran) 4 mg PRN Q6HRS PRN IVP NAUSEA/VOMITING; Start 03/24/20 at 18:00 Potassium Chloride (Klor-Con) 40 meq 1X PRN PO PER PROTOCOL; Start 03/24/20 at 18:00; Status UNV Magnesium Oxide (Magnesium Oxide) 400 mg BID PO ; Start 03/24/20 at 21:00; Stop 03/26/20 at 09:01; Status UNV Potassium Chloride/Water 100 ml @ 100 mls/hr Q1H IV ; Start 03/24/20 at 18:00; Stop 03/24/20 at 21:59; Status UNV Magnesium Sulfate 50 ml @ 25 mls/hr Q24H IV ; Start 03/24/20 at 18:00; Stop 03/24/20 at 19:50; Status DC Potassium Chloride/Water 100 ml @ 100 mls/hr Q1H PRN IV low k; Start 03/24/20 at 18:00; Status UNV Insulin Human Lispro (HumaLOG) 0-7 UNITS TIDWMEALS SQ Last administered on 03/25/20at 09:23; Start 03/25/20 at 08:00 Dextrose (Dextrose 50%-Water Syringe) 12.5 gm PRN Q15MIN PRN IV SEE COMMENTS; Start 03/24/20 at 18:00 Acetaminophen (Tylenol) 650 mg PRN Q4HRS PRN GT TEMP OVER 100.4F OR MILD PAIN; Start 03/24/20 at 18:00 Heparin Sodium (Porcine) (Heparin Sodium) 5,000 unit Q12HR SQ Last administered on 03/25/20at 09:24; Start 03/24/20 at 21:00 Labetalol HCl (Normodyne Iv Push) 10 mg PRN Q3HRS PRN IVP HYPERTENSION; Start 03/24/20 at 18:00 Furosemide (Lasix) 20 mg 1X ONCE IVP Last administered on 03/24/20at 21:47; Start 03/24/20 at 18:00; Stop 03/24/20 at 18:01; Status DC Info (Non-Icu Electrolyte Protocol) 1 ea CONT PRN PRN MC SEE COMMENTS; Start 03/24/20 at 20:00 Allergies Allergies: Coded Allergies: No Known Drug Allergies (Unverified , 03/24/20) Physical Exam General: Alert, Oriented X3, Cooperative, No acute distress HEENT: PERRLA, Mucous membr. moist/pink Lungs: Clear to auscultation, Normal air movement Heart: Regular rate, Normal S1, Normal S2, No murmurs Abdomen: Normal bowel sounds, Soft, No tenderness, No hepatosplenomegaly, No masses Extremities: No clubbing, No cyanosis, No edema, Normal pulses, No tenderness/swelling Skin: No rashes, No breakdown Neuro: Normal gait, Normal speech, Normal tone, Sensation intact, Reflexes 2+ Psych/Mental Status: Mental status NL, Mood NL Vitals VITALS Vital Signs Date Time Temp Pulse Resp B/P (MAP) Pulse Ox O2 Delivery O2 Flow Rate FiO2 03/25/20 07:00 98.5 93 18 153/67 (95) 97 Room Air 98.5 Labs Labs Laboratory Tests Test 03/24/20 13:00 03/24/20 13:20 03/24/20 17:00 03/25/20 07:35 White Blood Count 10.1 x10^3/uL (4.0-11.0) Red Blood Count 2.71 x10^6/uL (3.50-5.40) Hemoglobin 8.0 g/dL (12.0-15.5) Hematocrit 23.1 % (36.0-47.0) Mean Corpuscular Volume 85 fL (79-100) Mean Corpuscular Hemoglobin 30 pg (25-35) Mean Corpuscular Hemoglobin Concent 35 g/dL (31-37) Red Cell Distribution Width 14.7 % (11.5-14.5) Platelet Count 187 x10^3/uL (140-400) Neutrophils (%) (Auto) 73 % (31-73) Lymphocytes (%) (Auto) 18 % (24-48) Monocytes (%) (Auto) 3 % (0-9) Eosinophils (%) (Auto) 6 % (0-3) Basophils (%) (Auto) 1 % (0-3) Neutrophils # (Auto) 7.4 x10^3/uL (1.8-7.7) Lymphocytes # (Auto) 1.8 x10^3/uL (1.0-4.8) Monocytes # (Auto) 0.3 x10^3/uL (0.0-1.1) Eosinophils # (Auto) 0.6 x10^3/uL (0.0-0.7) Basophils # (Auto) 0.1 x10^3/uL (0.0-0.2) Prothrombin Time 12.4 SEC (11.7-14.0) Prothromb Time International Ratio 1.0 (0.8-1.1) Sodium Level 134 mmol/L (136-145) Potassium Level 5.9 mmol/L (3.5-5.1) Chloride Level 104 mmol/L (98-107) Carbon Dioxide Level 20 mmol/L (21-32) Anion Gap 10 (6-14) Blood Urea Nitrogen 33 mg/dL (7-20) Creatinine 2.1 mg/dL (0.6-1.0) Estimated GFR (Cockcroft-Gault) 25.2 BUN/Creatinine Ratio 16 (6-20) Glucose Level 363 mg/dL (70-99) Calcium Level 8.8 mg/dL (8.5-10.1) Magnesium Level 2.3 mg/dL (1.8-2.4) Total Bilirubin 0.3 mg/dL (0.2-1.0) Aspartate Amino Transf (AST/SGOT) 16 U/L (15-37) Alanine Aminotransferase (ALT/SGPT) 26 U/L (14-59) Alkaline Phosphatase 105 U/L (46-116) Troponin I Quantitative < 0.017 ng/mL (0.000-0.055) < 0.017 ng/mL (0.000-0.055) JK-Ats-C-Type Natriuretic Peptide 1444 pg/mL (0-124) Total Protein 6.7 g/dL (6.4-8.2) Albumin 2.7 g/dL (3.4-5.0) Albumin/Globulin Ratio 0.7 (1.0-1.7) Thyroid Stimulating Hormone (TSH) 1.772 uIU/mL (0.358-3.74) Urine Collection Type Unknown Urine Color Yellow Urine Clarity Cloudy Urine pH 6.0 (<5.0-8.0) Urine Specific [place] 1.020 (1.000-1.030) Urine Protein >=300 mg/dL (NEG-TRACE) Urine Glucose (UA) >=1000 mg/dL (NEG) Urine Ketones (Stick) Negative mg/dL (NEG) Urine Blood Large (NEG) Urine Nitrite Negative (NEG) Urine Bilirubin Negative (NEG) Urine Urobilinogen Dipstick 0.2 mg/dL (0.2 mg/dL) Urine Leukocyte Esterase Small (NEG) Urine RBC Tntc /HPF (0-2) Urine WBC >40 /HPF (0-4) Urine Squamous Epithelial Cells Few /LPF Urine Bacteria Many /HPF (0-FEW) Urine Hyaline Casts Few /HPF Urine Opiates Screen Neg (NEG) Urine Methadone Screen Neg (NEG) Urine Barbiturates Neg (NEG) Urine Phencyclidine Screen Neg (NEG) Urine Amphetamine/Methamphetamine Neg (NEG) Urine Benzodiazepines Screen Neg (NEG) Urine Cocaine Screen Neg (NEG) Urine Cannabinoids Screen Neg (NEG) Urine Ethyl Alcohol Pos (NEG) Glucose (Fingerstick) 198 mg/dL (70-99) Test 03/25/20 08:16 White Blood Count 9.2 x10^3/uL (4.0-11.0) Red Blood Count 2.50 x10^6/uL (3.50-5.40) Hemoglobin 7.3 g/dL (12.0-15.5) Hematocrit 21.5 % (36.0-47.0) Mean Corpuscular Volume 86 fL (79-100) Mean Corpuscular Hemoglobin 29 pg (25-35) Mean Corpuscular Hemoglobin Concent 34 g/dL (31-37) Red Cell Distribution Width 14.6 % (11.5-14.5) Platelet Count 176 x10^3/uL (140-400) Neutrophils (%) (Auto) 70 % (31-73) Lymphocytes (%) (Auto) 20 % (24-48) Monocytes (%) (Auto) 5 % (0-9) Eosinophils (%) (Auto) 4 % (0-3) Basophils (%) (Auto) 1 % (0-3) Neutrophils # (Auto) 6.4 x10^3/uL (1.8-7.7) Lymphocytes # (Auto) 1.9 x10^3/uL (1.0-4.8) Monocytes # (Auto) 0.4 x10^3/uL (0.0-1.1) Eosinophils # (Auto) 0.4 x10^3/uL (0.0-0.7) Basophils # (Auto) 0.0 x10^3/uL (0.0-0.2) Sodium Level 139 mmol/L (136-145) Potassium Level 4.7 mmol/L (3.5-5.1) Chloride Level 108 mmol/L (98-107) Carbon Dioxide Level 21 mmol/L (21-32) Anion Gap 10 (6-14) Blood Urea Nitrogen 29 mg/dL (7-20) Creatinine 1.9 mg/dL (0.6-1.0) Estimated GFR (Cockcroft-Gault) 28.3 BUN/Creatinine Ratio 15 (6-20) Glucose Level 216 mg/dL (70-99) Calcium Level 8.1 mg/dL (8.5-10.1) Phosphorus Level 4.5 mg/dL (2.6-4.7) Magnesium Level 2.2 mg/dL (1.8-2.4) Total Bilirubin 0.3 mg/dL (0.2-1.0) Aspartate Amino Transf (AST/SGOT) 12 U/L (15-37) Alanine Aminotransferase (ALT/SGPT) 22 U/L (14-59) Alkaline Phosphatase 91 U/L (46-116) Total Protein 5.8 g/dL (6.4-8.2) Albumin 2.3 g/dL (3.4-5.0) Albumin/Globulin Ratio 0.7 (1.0-1.7) Laboratory Tests Test 03/24/20 13:00 03/24/20 13:20 03/24/20 17:00 03/25/20 07:35 White Blood Count 10.1 x10^3/uL (4.0-11.0) Red Blood Count 2.71 x10^6/uL (3.50-5.40) Hemoglobin 8.0 g/dL (12.0-15.5) Hematocrit 23.1 % (36.0-47.0) Mean Corpuscular Volume 85 fL (79-100) Mean Corpuscular Hemoglobin 30 pg (25-35) Mean Corpuscular Hemoglobin Concent 35 g/dL (31-37) Red Cell Distribution Width 14.7 % (11.5-14.5) Platelet Count 187 x10^3/uL (140-400) Neutrophils (%) (Auto) 73 % (31-73) Lymphocytes (%) (Auto) 18 % (24-48) Monocytes (%) (Auto) 3 % (0-9) Eosinophils (%) (Auto) 6 % (0-3) Basophils (%) (Auto) 1 % (0-3) Neutrophils # (Auto) 7.4 x10^3/uL (1.8-7.7) Lymphocytes # (Auto) 1.8 x10^3/uL (1.0-4.8) Monocytes # (Auto) 0.3 x10^3/uL (0.0-1.1) Eosinophils # (Auto) 0.6 x10^3/uL (0.0-0.7) Basophils # (Auto) 0.1 x10^3/uL (0.0-0.2) Prothrombin Time 12.4 SEC (11.7-14.0) Prothromb Time International Ratio 1.0 (0.8-1.1) Sodium Level 134 mmol/L (136-145) Potassium Level 5.9 mmol/L (3.5-5.1) Chloride Level 104 mmol/L (98-107) Carbon Dioxide Level 20 mmol/L (21-32) Anion Gap 10 (6-14) Blood Urea Nitrogen 33 mg/dL (7-20) Creatinine 2.1 mg/dL (0.6-1.0) Estimated GFR (Cockcroft-Gault) 25.2 BUN/Creatinine Ratio 16 (6-20) Glucose Level 363 mg/dL (70-99) Calcium Level 8.8 mg/dL (8.5-10.1) Magnesium Level 2.3 mg/dL (1.8-2.4) Total Bilirubin 0.3 mg/dL (0.2-1.0) Aspartate Amino Transf (AST/SGOT) 16 U/L (15-37) Alanine Aminotransferase (ALT/SGPT) 26 U/L (14-59) Alkaline Phosphatase 105 U/L (46-116) Troponin I Quantitative < 0.017 ng/mL (0.000-0.055) < 0.017 ng/mL (0.000-0.055) AF-Maw-N-Type Natriuretic Peptide 1444 pg/mL (0-124) Total Protein 6.7 g/dL (6.4-8.2) Albumin 2.7 g/dL (3.4-5.0) Albumin/Globulin Ratio 0.7 (1.0-1.7) Thyroid Stimulating Hormone (TSH) 1.772 uIU/mL (0.358-3.74) Urine Collection Type Unknown Urine Color Yellow Urine Clarity Cloudy Urine pH 6.0 (<5.0-8.0) Urine Specific [place] 1.020 (1.000-1.030) Urine Protein >=300 mg/dL (NEG-TRACE) Urine Glucose (UA) >=1000 mg/dL (NEG) Urine Ketones (Stick) Negative mg/dL (NEG) Urine Blood Large (NEG) Urine Nitrite Negative (NEG) Urine Bilirubin Negative (NEG) Urine Urobilinogen Dipstick 0.2 mg/dL (0.2 mg/dL) Urine Leukocyte Esterase Small (NEG) Urine RBC Tntc /HPF (0-2) Urine WBC >40 /HPF (0-4) Urine Squamous Epithelial Cells Few /LPF Urine Bacteria Many /HPF (0-FEW) Urine Hyaline Casts Few /HPF Urine Opiates Screen Neg (NEG) Urine Methadone Screen Neg (NEG) Urine Barbiturates Neg (NEG) Urine Phencyclidine Screen Neg (NEG) Urine Amphetamine/Methamphetamine Neg (NEG) Urine Benzodiazepines Screen Neg (NEG) Urine Cocaine Screen Neg (NEG) Urine Cannabinoids Screen Neg (NEG) Urine Ethyl Alcohol Pos (NEG) Glucose (Fingerstick) 198 mg/dL (70-99) Test 03/25/20 08:16 White Blood Count 9.2 x10^3/uL (4.0-11.0) Red Blood Count 2.50 x10^6/uL (3.50-5.40) Hemoglobin 7.3 g/dL (12.0-15.5) Hematocrit 21.5 % (36.0-47.0) Mean Corpuscular Volume 86 fL (79-100) Mean Corpuscular Hemoglobin 29 pg (25-35) Mean Corpuscular Hemoglobin Concent 34 g/dL (31-37) Red Cell Distribution Width 14.6 % (11.5-14.5) Platelet Count 176 x10^3/uL (140-400) Neutrophils (%) (Auto) 70 % (31-73) Lymphocytes (%) (Auto) 20 % (24-48) Monocytes (%) (Auto) 5 % (0-9) Eosinophils (%) (Auto) 4 % (0-3) Basophils (%) (Auto) 1 % (0-3) Neutrophils # (Auto) 6.4 x10^3/uL (1.8-7.7) Lymphocytes # (Auto) 1.9 x10^3/uL (1.0-4.8) Monocytes # (Auto) 0.4 x10^3/uL (0.0-1.1) Eosinophils # (Auto) 0.4 x10^3/uL (0.0-0.7) Basophils # (Auto) 0.0 x10^3/uL (0.0-0.2) Sodium Level 139 mmol/L (136-145) Potassium Level 4.7 mmol/L (3.5-5.1) Chloride Level 108 mmol/L (98-107) Carbon Dioxide Level 21 mmol/L (21-32) Anion Gap 10 (6-14) Blood Urea Nitrogen 29 mg/dL (7-20) Creatinine 1.9 mg/dL (0.6-1.0) Estimated GFR (Cockcroft-Gault) 28.3 BUN/Creatinine Ratio 15 (6-20) Glucose Level 216 mg/dL (70-99) Calcium Level 8.1 mg/dL (8.5-10.1) Phosphorus Level 4.5 mg/dL (2.6-4.7) Magnesium Level 2.2 mg/dL (1.8-2.4) Total Bilirubin 0.3 mg/dL (0.2-1.0) Aspartate Amino Transf (AST/SGOT) 12 U/L (15-37) Alanine Aminotransferase (ALT/SGPT) 22 U/L (14-59) Alkaline Phosphatase 91 U/L (46-116) Total Protein 5.8 g/dL (6.4-8.2) Albumin 2.3 g/dL (3.4-5.0) Albumin/Globulin Ratio 0.7 (1.0-1.7) Assessment/Plan Assessment/Plan Assessment: 45y admitted to the hospital for HTN urgency Recommendation: 1.) Menorrhagia discussed short term and shelter solutions to this issue. Would start Provera at this time as a bridge to the lobsterman solution. Discussed outpt options like Mirena or Nexplanon. The pt states that she has either surgery or a consult this Nov. Although the pt also states that she does not have a bleacher sulfite pulp. Informed the pt that she can f/u in our office for any tx option she feels would be best for her. Looks like a pelvic u/s was ordered and then cancelled. 2.) Hypertensive urgency improved, per primary team 3.) Anemia Hgb 7.3 4.) ARF nephrology consulted 5.) DM type 2 on insulin 6.) Will continue to follow FARIBA BECKWITH MD Mar 25, 2020 10:05
--- NOTE | 2020-03-25 10:58 | PDOC ---
PROGRESS NOTES Date of Service: DATE: 03/25/20 TIME: 10:58 Chief Complaint Chief Complaint Images: Images CXR Impression: 1. No acute cardiopulmonary process. Head CT Impression: No acute intracranial process. Frothy secretions in the right maxillary sinus, which could represent acute sinusitis in the appropriate clinical setting. impression Assessment/Plan Hypertensive urgency Normocytic anemia due to iron deficiency versus menorrhagia, possible fibroids? Acute electrolyte abnormalityhyponatremia, hyperkalemia with no acute EKG changes KASEY due to vasomotor nephropathy unclear chronic kidney disease Elevated BNP Severe protein malnutrition History of diabetes mellitus insulin-dependent Hyperglycemia uncontrolled plan Admit to medicine for further management Nephrology consult Gynecology consult Labetalol as needed for systolics greater than 180 Continue telemetry monitoring Strict I's and O's 20 mg IV Lasix 1x1 Heparin for DVT prophylaxis ADA diet Full code Discussed with RN and SW Disposition inpatient care as above Surrogate decision maker is d/w RN Justifications for Admission Justifications for Admission Other Justification HTN Urgency History of Present Illness History of Present Illness Chief Complaint: Chief Complain: Elevated blood pressure History of Present Illness: HPI: 45 year old Georgian-speaking female with history of diabetes type 2, hypertension, who presents to the ED today complaining of high blood pressure and left upper extremity pain. Patient states this morning she went to see her doctor and she was told her blood pressure systolic was in the 200s and sent to the ED to be evaluated. Patient states she was complaining of left arm pain and chills when she went to see the doctor. Denies any chest pain. Denies any injury. Denies any shortness of breath. She is also stating she had left eye surgery roughly 2 weeks ago and the left eye is still dilated. Patient is compliant with all her medications and she did not miss any of her lisinopril dose. Of note, patient also states that she has been having heavy menstrual bleeding in the past 3 months. She states that she was seen by her ballaster and they recommended possible surgery. Past Medical/Surgical History: PMH/PSH: Diabetes type 2 insulin-dependent Hypertension Allergies: Allergies: Coded Allergies: No Known Drug Allergies (Unverified , 03/24/20) Family History: Family History: Reviewed and none reported Social History: Social History: Denies alcohol, tobacco, drug abuse Vitals Vitals Vital Signs Date Time Temp Pulse Resp B/P (MAP) Pulse Ox O2 Delivery O2 Flow Rate FiO2 03/25/20 07:00 98.5 93 18 153/67 (95) 97 Room Air 98.5 Physical Exam General: Alert, Oriented X3, Cooperative, No acute distress Heart: Regular rate, Normal S1, Normal S2, No murmurs Abdomen: Normal bowel sounds, Soft, No tenderness, No hepatosplenomegaly, No masses Extremities: No clubbing, No cyanosis, No edema, Normal pulses, No tenderness/swelling Skin: No rashes, No breakdown Labs LABS Laboratory Tests Test 03/24/20 13:00 03/24/20 13:20 03/24/20 17:00 03/25/20 07:35 White Blood Count 10.1 x10^3/uL (4.0-11.0) Red Blood Count 2.71 x10^6/uL (3.50-5.40) Hemoglobin 8.0 g/dL (12.0-15.5) Hematocrit 23.1 % (36.0-47.0) Mean Corpuscular Volume 85 fL (79-100) Mean Corpuscular Hemoglobin 30 pg (25-35) Mean Corpuscular Hemoglobin Concent 35 g/dL (31-37) Red Cell Distribution Width 14.7 % (11.5-14.5) Platelet Count 187 x10^3/uL (140-400) Neutrophils (%) (Auto) 73 % (31-73) Lymphocytes (%) (Auto) 18 % (24-48) Monocytes (%) (Auto) 3 % (0-9) Eosinophils (%) (Auto) 6 % (0-3) Basophils (%) (Auto) 1 % (0-3) Neutrophils # (Auto) 7.4 x10^3/uL (1.8-7.7) Lymphocytes # (Auto) 1.8 x10^3/uL (1.0-4.8) Monocytes # (Auto) 0.3 x10^3/uL (0.0-1.1) Eosinophils # (Auto) 0.6 x10^3/uL (0.0-0.7) Basophils # (Auto) 0.1 x10^3/uL (0.0-0.2) Prothrombin Time 12.4 SEC (11.7-14.0) Prothromb Time International Ratio 1.0 (0.8-1.1) Sodium Level 134 mmol/L (136-145) Potassium Level 5.9 mmol/L (3.5-5.1) Chloride Level 104 mmol/L (98-107) Carbon Dioxide Level 20 mmol/L (21-32) Anion Gap 10 (6-14) Blood Urea Nitrogen 33 mg/dL (7-20) Creatinine 2.1 mg/dL (0.6-1.0) Estimated GFR (Cockcroft-Gault) 25.2 BUN/Creatinine Ratio 16 (6-20) Glucose Level 363 mg/dL (70-99) Calcium Level 8.8 mg/dL (8.5-10.1) Magnesium Level 2.3 mg/dL (1.8-2.4) Total Bilirubin 0.3 mg/dL (0.2-1.0) Aspartate Amino Transf (AST/SGOT) 16 U/L (15-37) Alanine Aminotransferase (ALT/SGPT) 26 U/L (14-59) Alkaline Phosphatase 105 U/L (46-116) Troponin I Quantitative < 0.017 ng/mL (0.000-0.055) < 0.017 ng/mL (0.000-0.055) NG-Bgg-O-Type Natriuretic Peptide 1444 pg/mL (0-124) Total Protein 6.7 g/dL (6.4-8.2) Albumin 2.7 g/dL (3.4-5.0) Albumin/Globulin Ratio 0.7 (1.0-1.7) Thyroid Stimulating Hormone (TSH) 1.772 uIU/mL (0.358-3.74) Urine Collection Type Unknown Urine Color Yellow Urine Clarity Cloudy Urine pH 6.0 (<5.0-8.0) Urine Specific Spencer 1.020 (1.000-1.030) Urine Protein >=300 mg/dL (NEG-TRACE) Urine Glucose (UA) >=1000 mg/dL (NEG) Urine Ketones (Stick) Negative mg/dL (NEG) Urine Blood Large (NEG) Urine Nitrite Negative (NEG) Urine Bilirubin Negative (NEG) Urine Urobilinogen Dipstick 0.2 mg/dL (0.2 mg/dL) Urine Leukocyte Esterase Small (NEG) Urine RBC Tntc /HPF (0-2) Urine WBC >40 /HPF (0-4) Urine Squamous Epithelial Cells Few /LPF Urine Bacteria Many /HPF (0-FEW) Urine Hyaline Casts Few /HPF Urine Opiates Screen Neg (NEG) Urine Methadone Screen Neg (NEG) Urine Barbiturates Neg (NEG) Urine Phencyclidine Screen Neg (NEG) Urine Amphetamine/Methamphetamine Neg (NEG) Urine Benzodiazepines Screen Neg (NEG) Urine Cocaine Screen Neg (NEG) Urine Cannabinoids Screen Neg (NEG) Urine Ethyl Alcohol Pos (NEG) Glucose (Fingerstick) 198 mg/dL (70-99) Test 03/25/20 08:16 White Blood Count 9.2 x10^3/uL (4.0-11.0) Red Blood Count 2.50 x10^6/uL (3.50-5.40) Hemoglobin 7.3 g/dL (12.0-15.5) Hematocrit 21.5 % (36.0-47.0) Mean Corpuscular Volume 86 fL (79-100) Mean Corpuscular Hemoglobin 29 pg (25-35) Mean Corpuscular Hemoglobin Concent 34 g/dL (31-37) Red Cell Distribution Width 14.6 % (11.5-14.5) Platelet Count 176 x10^3/uL (140-400) Neutrophils (%) (Auto) 70 % (31-73) Lymphocytes (%) (Auto) 20 % (24-48) Monocytes (%) (Auto) 5 % (0-9) Eosinophils (%) (Auto) 4 % (0-3) Basophils (%) (Auto) 1 % (0-3) Neutrophils # (Auto) 6.4 x10^3/uL (1.8-7.7) Lymphocytes # (Auto) 1.9 x10^3/uL (1.0-4.8) Monocytes # (Auto) 0.4 x10^3/uL (0.0-1.1) Eosinophils # (Auto) 0.4 x10^3/uL (0.0-0.7) Basophils # (Auto) 0.0 x10^3/uL (0.0-0.2) Sodium Level 139 mmol/L (136-145) Potassium Level 4.7 mmol/L (3.5-5.1) Chloride Level 108 mmol/L (98-107) Carbon Dioxide Level 21 mmol/L (21-32) Anion Gap 10 (6-14) Blood Urea Nitrogen 29 mg/dL (7-20) Creatinine 1.9 mg/dL (0.6-1.0) Estimated GFR (Cockcroft-Gault) 28.3 BUN/Creatinine Ratio 15 (6-20) Glucose Level 216 mg/dL (70-99) Calcium Level 8.1 mg/dL (8.5-10.1) Phosphorus Level 4.5 mg/dL (2.6-4.7) Magnesium Level 2.2 mg/dL (1.8-2.4) Total Bilirubin 0.3 mg/dL (0.2-1.0) Aspartate Amino Transf (AST/SGOT) 12 U/L (15-37) Alanine Aminotransferase (ALT/SGPT) 22 U/L (14-59) Alkaline Phosphatase 91 U/L (46-116) Total Protein 5.8 g/dL (6.4-8.2) Albumin 2.3 g/dL (3.4-5.0) Albumin/Globulin Ratio 0.7 (1.0-1.7) Assessment and Plan Assessmemt and Plan Problems Medical Problems: (1) Acute on chronic renal failure Status: Acute (2) Hyperglycemia Status: Acute (3) Hypertension Status: Acute Comment Review of Relevant I have reviewed the following items fransisco (where applicable) has been applied. Labs Laboratory Tests Test 03/24/20 13:00 03/24/20 13:20 03/24/20 17:00 03/25/20 07:35 White Blood Count 10.1 x10^3/uL (4.0-11.0) Red Blood Count 2.71 x10^6/uL (3.50-5.40) Hemoglobin 8.0 g/dL (12.0-15.5) Hematocrit 23.1 % (36.0-47.0) Mean Corpuscular Volume 85 fL (79-100) Mean Corpuscular Hemoglobin 30 pg (25-35) Mean Corpuscular Hemoglobin Concent 35 g/dL (31-37) Red Cell Distribution Width 14.7 % (11.5-14.5) Platelet Count 187 x10^3/uL (140-400) Neutrophils (%) (Auto) 73 % (31-73) Lymphocytes (%) (Auto) 18 % (24-48) Monocytes (%) (Auto) 3 % (0-9) Eosinophils (%) (Auto) 6 % (0-3) Basophils (%) (Auto) 1 % (0-3) Neutrophils # (Auto) 7.4 x10^3/uL (1.8-7.7) Lymphocytes # (Auto) 1.8 x10^3/uL (1.0-4.8) Monocytes # (Auto) 0.3 x10^3/uL (0.0-1.1) Eosinophils # (Auto) 0.6 x10^3/uL (0.0-0.7) Basophils # (Auto) 0.1 x10^3/uL (0.0-0.2) Prothrombin Time 12.4 SEC (11.7-14.0) Prothromb Time International Ratio 1.0 (0.8-1.1) Sodium Level 134 mmol/L (136-145) Potassium Level 5.9 mmol/L (3.5-5.1) Chloride Level 104 mmol/L (98-107) Carbon Dioxide Level 20 mmol/L (21-32) Anion Gap 10 (6-14) Blood Urea Nitrogen 33 mg/dL (7-20) Creatinine 2.1 mg/dL (0.6-1.0) Estimated GFR (Cockcroft-Gault) 25.2 BUN/Creatinine Ratio 16 (6-20) Glucose Level 363 mg/dL (70-99) Calcium Level 8.8 mg/dL (8.5-10.1) Magnesium Level 2.3 mg/dL (1.8-2.4) Total Bilirubin 0.3 mg/dL (0.2-1.0) Aspartate Amino Transf (AST/SGOT) 16 U/L (15-37) Alanine Aminotransferase (ALT/SGPT) 26 U/L (14-59) Alkaline Phosphatase 105 U/L (46-116) Troponin I Quantitative < 0.017 ng/mL (0.000-0.055) < 0.017 ng/mL (0.000-0.055) YM-Bqb-Q-Type Natriuretic Peptide 1444 pg/mL (0-124) Total Protein 6.7 g/dL (6.4-8.2) Albumin 2.7 g/dL (3.4-5.0) Albumin/Globulin Ratio 0.7 (1.0-1.7) Thyroid Stimulating Hormone (TSH) 1.772 uIU/mL (0.358-3.74) Urine Collection Type Unknown Urine Color Yellow Urine Clarity Cloudy Urine pH 6.0 (<5.0-8.0) Urine Specific Spencer 1.020 (1.000-1.030) Urine Protein >=300 mg/dL (NEG-TRACE) Urine Glucose (UA) >=1000 mg/dL (NEG) Urine Ketones (Stick) Negative mg/dL (NEG) Urine Blood Large (NEG) Urine Nitrite Negative (NEG) Urine Bilirubin Negative (NEG) Urine Urobilinogen Dipstick 0.2 mg/dL (0.2 mg/dL) Urine Leukocyte Esterase Small (NEG) Urine RBC Tntc /HPF (0-2) Urine WBC >40 /HPF (0-4) Urine Squamous Epithelial Cells Few /LPF Urine Bacteria Many /HPF (0-FEW) Urine Hyaline Casts Few /HPF Urine Opiates Screen Neg (NEG) Urine Methadone Screen Neg (NEG) Urine Barbiturates Neg (NEG) Urine Phencyclidine Screen Neg (NEG) Urine Amphetamine/Methamphetamine Neg (NEG) Urine Benzodiazepines Screen Neg (NEG) Urine Cocaine Screen Neg (NEG) Urine Cannabinoids Screen Neg (NEG) Urine Ethyl Alcohol Pos (NEG) Glucose (Fingerstick) 198 mg/dL (70-99) Test 03/25/20 08:16 White Blood Count 9.2 x10^3/uL (4.0-11.0) Red Blood Count 2.50 x10^6/uL (3.50-5.40) Hemoglobin 7.3 g/dL (12.0-15.5) Hematocrit 21.5 % (36.0-47.0) Mean Corpuscular Volume 86 fL (79-100) Mean Corpuscular Hemoglobin 29 pg (25-35) Mean Corpuscular Hemoglobin Concent 34 g/dL (31-37) Red Cell Distribution Width 14.6 % (11.5-14.5) Platelet Count 176 x10^3/uL (140-400) Neutrophils (%) (Auto) 70 % (31-73) Lymphocytes (%) (Auto) 20 % (24-48) Monocytes (%) (Auto) 5 % (0-9) Eosinophils (%) (Auto) 4 % (0-3) Basophils (%) (Auto) 1 % (0-3) Neutrophils # (Auto) 6.4 x10^3/uL (1.8-7.7) Lymphocytes # (Auto) 1.9 x10^3/uL (1.0-4.8) Monocytes # (Auto) 0.4 x10^3/uL (0.0-1.1) Eosinophils # (Auto) 0.4 x10^3/uL (0.0-0.7) Basophils # (Auto) 0.0 x10^3/uL (0.0-0.2) Sodium Level 139 mmol/L (136-145) Potassium Level 4.7 mmol/L (3.5-5.1) Chloride Level 108 mmol/L (98-107) Carbon Dioxide Level 21 mmol/L (21-32) Anion Gap 10 (6-14) Blood Urea Nitrogen 29 mg/dL (7-20) Creatinine 1.9 mg/dL (0.6-1.0) Estimated GFR (Cockcroft-Gault) 28.3 BUN/Creatinine Ratio 15 (6-20) Glucose Level 216 mg/dL (70-99) Calcium Level 8.1 mg/dL (8.5-10.1) Phosphorus Level 4.5 mg/dL (2.6-4.7) Magnesium Level 2.2 mg/dL (1.8-2.4) Total Bilirubin 0.3 mg/dL (0.2-1.0) Aspartate Amino Transf (AST/SGOT) 12 U/L (15-37) Alanine Aminotransferase (ALT/SGPT) 22 U/L (14-59) Alkaline Phosphatase 91 U/L (46-116) Total Protein 5.8 g/dL (6.4-8.2) Albumin 2.3 g/dL (3.4-5.0) Albumin/Globulin Ratio 0.7 (1.0-1.7) Laboratory Tests Test 03/24/20 13:00 03/24/20 13:20 03/24/20 17:00 03/25/20 07:35 White Blood Count 10.1 x10^3/uL (4.0-11.0) Red Blood Count 2.71 x10^6/uL (3.50-5.40) Hemoglobin 8.0 g/dL (12.0-15.5) Hematocrit 23.1 % (36.0-47.0) Mean Corpuscular Volume 85 fL (79-100) Mean Corpuscular Hemoglobin 30 pg (25-35) Mean Corpuscular Hemoglobin Concent 35 g/dL (31-37) Red Cell Distribution Width 14.7 % (11.5-14.5) Platelet Count 187 x10^3/uL (140-400) Neutrophils (%) (Auto) 73 % (31-73) Lymphocytes (%) (Auto) 18 % (24-48) Monocytes (%) (Auto) 3 % (0-9) Eosinophils (%) (Auto) 6 % (0-3) Basophils (%) (Auto) 1 % (0-3) Neutrophils # (Auto) 7.4 x10^3/uL (1.8-7.7) Lymphocytes # (Auto) 1.8 x10^3/uL (1.0-4.8) Monocytes # (Auto) 0.3 x10^3/uL (0.0-1.1) Eosinophils # (Auto) 0.6 x10^3/uL (0.0-0.7) Basophils # (Auto) 0.1 x10^3/uL (0.0-0.2) Prothrombin Time 12.4 SEC (11.7-14.0) Prothromb Time International Ratio 1.0 (0.8-1.1) Sodium Level 134 mmol/L (136-145) Potassium Level 5.9 mmol/L (3.5-5.1) Chloride Level 104 mmol/L (98-107) Carbon Dioxide Level 20 mmol/L (21-32) Anion Gap 10 (6-14) Blood Urea Nitrogen 33 mg/dL (7-20) Creatinine 2.1 mg/dL (0.6-1.0) Estimated GFR (Cockcroft-Gault) 25.2 BUN/Creatinine Ratio 16 (6-20) Glucose Level 363 mg/dL (70-99) Calcium Level 8.8 mg/dL (8.5-10.1) Magnesium Level 2.3 mg/dL (1.8-2.4) Total Bilirubin 0.3 mg/dL (0.2-1.0) Aspartate Amino Transf (AST/SGOT) 16 U/L (15-37) Alanine Aminotransferase (ALT/SGPT) 26 U/L (14-59) Alkaline Phosphatase 105 U/L (46-116) Troponin I Quantitative < 0.017 ng/mL (0.000-0.055) < 0.017 ng/mL (0.000-0.055) PM-Rpi-K-Type Natriuretic Peptide 1444 pg/mL (0-124) Total Protein 6.7 g/dL (6.4-8.2) Albumin 2.7 g/dL (3.4-5.0) Albumin/Globulin Ratio 0.7 (1.0-1.7) Thyroid Stimulating Hormone (TSH) 1.772 uIU/mL (0.358-3.74) Urine Collection Type Unknown Urine Color Yellow Urine Clarity Cloudy Urine pH 6.0 (<5.0-8.0) Urine Specific Spencer 1.020 (1.000-1.030) Urine Protein >=300 mg/dL (NEG-TRACE) Urine Glucose (UA) >=1000 mg/dL (NEG) Urine Ketones (Stick) Negative mg/dL (NEG) Urine Blood Large (NEG) Urine Nitrite Negative (NEG) Urine Bilirubin Negative (NEG) Urine Urobilinogen Dipstick 0.2 mg/dL (0.2 mg/dL) Urine Leukocyte Esterase Small (NEG) Urine RBC Tntc /HPF (0-2) Urine WBC >40 /HPF (0-4) Urine Squamous Epithelial Cells Few /LPF Urine Bacteria Many /HPF (0-FEW) Urine Hyaline Casts Few /HPF Urine Opiates Screen Neg (NEG) Urine Methadone Screen Neg (NEG) Urine Barbiturates Neg (NEG) Urine Phencyclidine Screen Neg (NEG) Urine Amphetamine/Methamphetamine Neg (NEG) Urine Benzodiazepines Screen Neg (NEG) Urine Cocaine Screen Neg (NEG) Urine Cannabinoids Screen Neg (NEG) Urine Ethyl Alcohol Pos (NEG) Glucose (Fingerstick) 198 mg/dL (70-99) Test 03/25/20 08:16 White Blood Count 9.2 x10^3/uL (4.0-11.0) Red Blood Count 2.50 x10^6/uL (3.50-5.40) Hemoglobin 7.3 g/dL (12.0-15.5) Hematocrit 21.5 % (36.0-47.0) Mean Corpuscular Volume 86 fL (79-100) Mean Corpuscular Hemoglobin 29 pg (25-35) Mean Corpuscular Hemoglobin Concent 34 g/dL (31-37) Red Cell Distribution Width 14.6 % (11.5-14.5) Platelet Count 176 x10^3/uL (140-400) Neutrophils (%) (Auto) 70 % (31-73) Lymphocytes (%) (Auto) 20 % (24-48) Monocytes (%) (Auto) 5 % (0-9) Eosinophils (%) (Auto) 4 % (0-3) Basophils (%) (Auto) 1 % (0-3) Neutrophils # (Auto) 6.4 x10^3/uL (1.8-7.7) Lymphocytes # (Auto) 1.9 x10^3/uL (1.0-4.8) Monocytes # (Auto) 0.4 x10^3/uL (0.0-1.1) Eosinophils # (Auto) 0.4 x10^3/uL (0.0-0.7) Basophils # (Auto) 0.0 x10^3/uL (0.0-0.2) Sodium Level 139 mmol/L (136-145) Potassium Level 4.7 mmol/L (3.5-5.1) Chloride Level 108 mmol/L (98-107) Carbon Dioxide Level 21 mmol/L (21-32) Anion Gap 10 (6-14) Blood Urea Nitrogen 29 mg/dL (7-20) Creatinine 1.9 mg/dL (0.6-1.0) Estimated GFR (Cockcroft-Gault) 28.3 BUN/Creatinine Ratio 15 (6-20) Glucose Level 216 mg/dL (70-99) Calcium Level 8.1 mg/dL (8.5-10.1) Phosphorus Level 4.5 mg/dL (2.6-4.7) Magnesium Level 2.2 mg/dL (1.8-2.4) Total Bilirubin 0.3 mg/dL (0.2-1.0) Aspartate Amino Transf (AST/SGOT) 12 U/L (15-37) Alanine Aminotransferase (ALT/SGPT) 22 U/L (14-59) Alkaline Phosphatase 91 U/L (46-116) Total Protein 5.8 g/dL (6.4-8.2) Albumin 2.3 g/dL (3.4-5.0) Albumin/Globulin Ratio 0.7 (1.0-1.7) Medications Current Medications Ondansetron HCl (Zofran) 4 mg PRN Q8HRS PRN IV NAUSEA/VOMITING; Start 03/24/20 at 16:15; Stop 03/25/20 at 16:14 Morphine Sulfate (Morphine Sulfate) 2 mg PRN Q2HR PRN IV PAIN; Start 03/24/20 at 16:15; Stop 03/25/20 at 16:14 Sodium Chloride 1,000 ml @ 125 mls/hr 1X ONCE IV Last administered on 03/24/20at 19:50; Start 03/24/20 at 16:15; Stop 03/25/20 at 00:14; Status DC Sodium Polystyrene Sulfonate (Kayexalate) 30 gm 1X ONCE PO Last administered on 03/24/20at 16:54; Start 03/24/20 at 16:15; Stop 03/24/20 at 16:16; Status DC Sodium Chloride 1,000 ml @ 1,000 mls/hr 1X ONCE IV Last administered on 03/24/20at 16:54; Start 03/24/20 at 16:15; Stop 03/24/20 at 17:14; Status DC Labetalol HCl (Normodyne Iv Push) 20 mg 1X ONCE IVP Last administered on 03/24/20at 16:55; Start 03/24/20 at 16:45; Stop 03/24/20 at 16:46; Status DC Sennosides (Senna) 17.2 mg PRN BID PRN PO CONSTIPATION; Start 03/24/20 at 18:00 Docusate Sodium (Colace) 100 mg PRN DAILY PRN PO HARD STOOLS; Start 03/24/20 at 18:00 Ondansetron HCl (Zofran) 4 mg PRN Q6HRS PRN IVP NAUSEA/VOMITING; Start 03/24/20 at 18:00 Potassium Chloride (Klor-Con) 40 meq 1X PRN PO PER PROTOCOL; Start 03/24/20 at 18:00; Status UNV Magnesium Oxide (Magnesium Oxide) 400 mg BID PO ; Start 03/24/20 at 21:00; Stop 03/26/20 at 09:01; Status UNV Potassium Chloride/Water 100 ml @ 100 mls/hr Q1H IV ; Start 03/24/20 at 18:00; Stop 03/24/20 at 21:59; Status UNV Magnesium Sulfate 50 ml @ 25 mls/hr Q24H IV ; Start 03/24/20 at 18:00; Stop 03/24/20 at 19:50; Status DC Potassium Chloride/Water 100 ml @ 100 mls/hr Q1H PRN IV low k; Start 03/24/20 at 18:00; Status UNV Insulin Human Lispro (HumaLOG) 0-7 UNITS TIDWMEALS SQ Last administered on 03/25/20at 09:23; Start 03/25/20 at 08:00 Dextrose (Dextrose 50%-Water Syringe) 12.5 gm PRN Q15MIN PRN IV SEE COMMENTS; Start 03/24/20 at 18:00 Acetaminophen (Tylenol) 650 mg PRN Q4HRS PRN GT TEMP OVER 100.4F OR MILD PAIN; Start 03/24/20 at 18:00 Heparin Sodium (Porcine) (Heparin Sodium) 5,000 unit Q12HR SQ Last administered on 03/25/20at 09:24; Start 03/24/20 at 21:00 Labetalol HCl (Normodyne Iv Push) 10 mg PRN Q3HRS PRN IVP HYPERTENSION; Start 03/24/20 at 18:00 Furosemide (Lasix) 20 mg 1X ONCE IVP Last administered on 03/24/20at 21:47; Start 03/24/20 at 18:00; Stop 03/24/20 at 18:01; Status DC Info (Non-Icu Electrolyte Protocol) 1 ea CONT PRN PRN MC SEE COMMENTS; Start 03/24/20 at 20:00 Medroxyprogesterone Acetate (Provera) 5 mg DAILY PO ; Start 03/25/20 at 10:15 Vitals/I & O Vital Sign - Last 24 Hours 03/24/20 03/24/20 03/24/20 03/24/20 11:59 13:23 14:23 15:23 Temp 97.9 97.9 Pulse 86 82 82 86 Resp 16 B/P (MAP) 157/66 (96) Pulse Ox 100 98 98 98 O2 Delivery Room Air 03/24/20 03/24/20 03/24/20 03/24/20 15:53 16:53 16:55 17:03 Pulse 82 85 86 80 B/P (MAP) 190/83 Pulse Ox 97 98 98 03/24/20 03/24/20 03/24/20 03/24/20 17:38 18:08 18:30 21:30 Pulse 77 76 74 Pulse Ox 95 95 97 O2 Delivery Room Air 03/24/20 03/24/20 03/25/20 03/25/20 21:30 23:00 03:00 07:00 Temp 98.2 98.2 98.7 98.5 98.2 98.2 98.7 98.5 Pulse 86 85 91 93 Resp 20 20 20 18 B/P (MAP) 99/74 (82) 140/66 (90) 144/76 (98) 153/67 (95) Pulse Ox 100 97 100 97 O2 Delivery Room Air Room Air Room Air Room Air Intake and Output 03/24/20 03/24/20 03/25/20 15:00 23:00 07:00 Intake Total 1000 ml 840 ml Balance 1000 ml 840 ml Justicifation of Admission Dx: Justifications for Admission: Justification of Admission Dx: Yes Comments: ACUTE BLOOD LOSS ANEMIA CALE HINSON MD Mar 25, 2020 10:58
[2020-03-25 11:00] VITALS: BP 150/60
[2020-03-25 15:00] VITALS: BP 157/83
--- NOTE | 2020-03-25 15:40 | NUR ---
SW following. Spoke with RN and reviewed chart. Pt from home. Pt currently on room air and IV pain medications. PT recommendation is home with assistance. SW went to talk with pt. Pt speaks Lithuanian. Pt called her son Simon ([phone]) from her personal phoned and held the phone to this SW. SW spoke with Simon who stated he is at home with pt during the day while pt's spouse is at work. Simon declined need for HH for pt stating he can provided assistance at home. No further SW needs identified. Discharge plan is home, self-care.
[2020-03-25] MEDS ORDERED: INSU100I27 SQ ×2 (16:59)
[2020-03-25 19:00] VITALS: BP 135/72
--- NOTE | 2020-03-25 20:45 | RAD ---
Transvaginal Pelvic ultrasound 03/25/2020 CLINICAL HISTORY: Heavy menses for 6 days. TECHNIQUE: A transvaginal pelvic ultrasound study was performed. Multiple images were obtained. FINDINGS: The uterus is within normal limits in size and echogenicity. It measures 8.2 x 4.9 x 4.4 cm in longitudinal, transverse, and AP dimensions. The endometrial echo complex measures 9 mm in thickness which is within normal limits. A 6 mm nabothian cyst is seen within the cervix. No focal abnormality of the uterus is seen. The right ovary is normal in size and echogenicity. It measures 2.9 x 1.6 x 1.5 cm in size. The left ovary is not visualized due to overlying bowel gas. No adnexal mass is seen. No free fluid is noted. IMPRESSION: Essentially Negative study. Electronically signed by: Denton Londnoo MD (03/25/2020 8:42 PM) [id number]
--- NOTE | 2020-03-25 20:51 | RAD ---
INDICATION: Reason: KASEY , HTn sive urgency , On Lisniopril / Spl. Instructions: / History: COMPARISON: None. TECHNIQUE: Grayscale and color ultrasound images obtained of the bilateral kidneys and bladder. FINDINGS: Right Kidney: 124 mm. No hydronephrosis. There is some fullness of the cortex of the right kidney which has a mildly exophytic appearance. Left Kidney: 129 mm. No hydronephrosis. Lobulated appearance. Bladder: 85 cc prevoid. IMPRESSION: * There is a somewhat lobulated appearance of the cortex of the bilateral kidneys with focal thickening on the right. This could be secondary to some prominent cortical tissue within the area but there is no comparison available for review to assess whether this is the patient's baseline appearance. It may be helpful to obtain a CT or MRI to ensure that none of this is secondary to a renal lesion. Alternatively a follow-up ultrasound could BE obtained to ensure no increase. * No hydronephrosis. Electronically signed by: Richard Reardon MD (03/25/2020 8:48 PM) [id number]
[2020-03-25] MEDS: cefTRIAXone IV Push 1 GM VIAL. IVP SCH (21:37)
[2020-03-25] MEDS: INSULIN GLARGINE SYRINGE. SQ SCH (22:25)
[2020-03-25 23:00] VITALS: BP 149/53
[2020-03-26] VITALS (12 sets, daily range): BP systolic 128–191; BP diastolic 60–87
[2020-03-26 05:58] LABS: BASO % 1 % (0-3); EOS # 0.6 x10^3/uL (0.0-0.7); EOS % 7 % (0-3); LYMPH # 2.4 x10^3/uL (1.0-4.8); LYMPH % 26 % (24-48); MEAN CORPUSCULAR HEMOGLOBIN 30 pg (25-35); MEAN CORPUSCULAR HGB CONC 36 g/dL (31-37); MEAN CORPUSCULAR VOLUME 85 fL (79-100); MONO # 0.5 x10^3/uL (0.0-1.1); MONO % 5 % (0-9); NEUT # 5.4 x10^3/uL (1.8-7.7); NEUT % 61 % (31-73); PLATELET COUNT 171 x10^3/uL (140-400); RED CELL DISTRIBUTION WIDTH 14.9 % (11.5-14.5); WHITE BLOOD COUNT 8.9 x10^3/uL (4.0-11.0)
[2020-03-26 06:22] LABS: CALCIUM 8.1 mg/dL (8.5-10.1); GFR 26.7; POTASSIUM 4.5 mmol/L (3.5-5.1)
[2020-03-26 06:25] LABS: HEMATOCRIT 19.6 % (36.0-47.0); HEMOGLOBIN 6.9 g/dL (12.0-15.5)
--- NOTE | 2020-03-26 07:28 | RAD ---
RENAL BILAT RENAL DUPLEX CO History: Reason: KASEY , HTn sive urgency , On Lisniopril, / Spl. Instructions: / History: Comparison: None. Technique: Multiple grayscale, color flow, and Doppler spectral waveform analysis images of the abdominal aorta and renal arteries were obtained. Findings: Abdominal aorta peak systolic velocity: 45.7 cm/sec. Right main renal artery peak systolic velocity: 141 cm/sec. Right renal artery to aorta ratio: 3.08 Left main renal artery peak systolic velocity: 103 cm/sec. Left renal artery to aorta ratio: 2.25 Renal veins are patent. IVC unremarkable. The right kidney measures 12.5 x 6.2 x 5.4 cm. The left kidney measures 13 x 5.6 x 5.1 cm. Kidneys are normal in echotexture. No hydronephrosis. Elevated bilateral renal artery resistive indices on the left measures 0.76 and on the right measures 0.85. IMPRESSION: 1. No evidence of renal artery stenosis. 2. Mildly increased bilateral renal artery resistive indices, may indicate medical renal disease. Electronically signed by: Venancio Meyers DO (03/26/2020 7:25 AM) [id number]
[2020-03-26] MEDS: INSULIN LISPRO 300 UNITS/3 ML VIAL. SQ SCH ×3 (08:20→17:49)
--- NOTE | 2020-03-26 09:28 | PDOC ---
FREELANCE OPERATOR PROGRESS NOTE Date of Service: DATE: 03/26/20 TIME: 09:28 Subjective: Talked to pt with translating line. The pts Hgb continues to decrease. She feels the bleeding has slowed a bit since starting the Provera. Since the pt ultimately wants surgery, discussed performing during this hospitalization. Objective: Vital Signs: Vital Signs Date Time Temp Pulse Resp B/P (MAP) Pulse Ox O2 Delivery O2 Flow Rate FiO2 03/25/20 07:00 98.5 93 18 153/67 (95) 97 Room Air 98.5 Vital Signs Date Time Temp Pulse Resp B/P (MAP) Pulse Ox O2 Delivery O2 Flow Rate FiO2 03/26/20 07:00 98.4 78 18 144/60 (88) 96 98.4 03/26/20 05:41 Room Air Labs: Laboratory Tests Test 03/25/20 11:22 03/25/20 16:24 03/25/20 22:18 03/26/20 04:50 Glucose (Fingerstick) 302 mg/dL (70-99) H 322 mg/dL (70-99) H 310 mg/dL (70-99) H White Blood Count 8.9 x10^3/uL (4.0-11.0) Red Blood Count 2.30 x10^6/uL (3.50-5.40) L Hemoglobin 6.9 g/dL (12.0-15.5) *L Hematocrit 19.6 % (36.0-47.0) *L Mean Corpuscular Volume 85 fL (79-100) Mean Corpuscular Hemoglobin 30 pg (25-35) Mean Corpuscular Hemoglobin Concent 36 g/dL (31-37) Red Cell Distribution Width 14.9 % (11.5-14.5) H Platelet Count 171 x10^3/uL (140-400) Neutrophils (%) (Auto) 61 % (31-73) Lymphocytes (%) (Auto) 26 % (24-48) Monocytes (%) (Auto) 5 % (0-9) Eosinophils (%) (Auto) 7 % (0-3) H Basophils (%) (Auto) 1 % (0-3) Neutrophils # (Auto) 5.4 x10^3/uL (1.8-7.7) Lymphocytes # (Auto) 2.4 x10^3/uL (1.0-4.8) Monocytes # (Auto) 0.5 x10^3/uL (0.0-1.1) Eosinophils # (Auto) 0.6 x10^3/uL (0.0-0.7) Basophils # (Auto) 0.0 x10^3/uL (0.0-0.2) Platelet Estimate Pending Sodium Level 138 mmol/L (136-145) Potassium Level 4.5 mmol/L (3.5-5.1) Chloride Level 108 mmol/L (98-107) H Carbon Dioxide Level 22 mmol/L (21-32) Anion Gap 8 (6-14) Blood Urea Nitrogen 29 mg/dL (7-20) H Creatinine 2.0 mg/dL (0.6-1.0) H Estimated GFR (Cockcroft-Gault) 26.7 Glucose Level 238 mg/dL (70-99) H Calcium Level 8.1 mg/dL (8.5-10.1) L Test 03/26/20 07:37 Glucose (Fingerstick) 201 mg/dL (70-99) H Laboratory Tests 03/26/20 04:50 Laboratory Tests 03/26/20 04:50 Laboratory Tests 03/26/20 04:50 Physical Exam: GENERAL: No apparent distress. Alert and oriented. HEENT: Head normocephalic, atraumatic. NECK: Supple LUNGS: Clear to auscultation. HEART: RRR, S1, S2 present, pulses intact ABDOMEN: Soft, positive bowel sounds. EXTREMITIES: No cyanosis or edema. NEUROLOGIC: Normal speech, normal tone PSYCHIATRIC: Normal affect, normal mood. SKIN: No ulceration. Assessment & Plan: A/P 45y admitted to the hospital for HTN urgency 1.) Menorrhagia with the pt continued drop and Hgb and requirement of transfusion, waiting to schedule surgery on an outpt basis serves little benefit, will schedule pt for H/S, D&C, Ablation tomorrow (03/27 at 9:45), NPO at midnight, pelvic u/s reveals uterus measuring 8.2 x 4.9 x 4.4 cm 2.) Hypertensive urgency improved, per primary team 3.) Anemia Hgb 7.3 -> 6.9, to get 1U pRBC 4.) ARF per nephrology 5.) DM type 2 on insulin 6.) Will continue to follow FARIBA BECKWITH MD Mar 26, 2020 09:28
--- NOTE | 2020-03-26 09:36 | PDOC ---
DATE OF SERVICE DATE: 03/26/20 TIME: 09:36 SUBJECTIVE ROS Stable OBJECTIVE Vital Signs Vital Signs Date Time Temp Pulse Resp B/P (MAP) Pulse Ox O2 Delivery O2 Flow Rate FiO2 03/26/20 07:00 98.4 78 18 144/60 (88) 96 98.4 03/26/20 05:41 Room Air I & 0 Intake and Output 03/26/20 07:00 Intake Total 600 ml Balance 600 ml Intake Oral 600 ml # Voids 3 PHYSICAL EXAM Physical Exam GEN: No apparent distress. HEENT: OM moist NECK: Supple LUNGS: Clear to auscultation, Non labored HEART: RRR, S!, S2 present. ABDOMEN: Soft, nontender. Positive bowel sounds, no organomegaly, EXTREMITIES: No clubbing, cyanosis. Trace Bilat LE edema + NEUROLOGIC: NA&O x 3, moves all extremities, no obvious focal deficits PSYCHIATRIC: Normal affect, normal mood. SKIN: No ulcerations or rashes, good skin turgor, no jaundice No Hanson, o SP or CVA tenderness DIAGNOSIS/ASSESSMENT Assessment & Plan KASEY - Vasomotor, Vomiting , Use of NSAID's ,UTI Recd 1 Lt IVF in ER, currently not on Fluids,stable renal function E-Lytes stable, no emergent indication for dialysis , supportive care, strict I/O (not accurate), avoid nephrotoxins Renal US reviewed CKD stage 3 - Pt and family not aware. Records from PCP reviewed, Labs were sent only from Feb 2020 with Cr 1.8 and Hyperkalemia No Dx of CKD in PCP's records . Suspect her current creatinine likely is close to her baseline Vomiting - at home, Monitor UTI-pt symptomatic , Defer to primary DM- Uncontrolled DM with per PCP note . Was on Lisinopril at home Anemia acute 2/2 Menorrhagia HTN - Systolic in 200's, much better now , Renal Doppler no e/o GEORGE Menorrhagia schedule pt for H/S, D&C, Ablation on 03/27 Renal US - somewhat lobulated appearance of the cortex of the bilateral kidneys with focal thickening on the right. This could be secondary to some pr ominent cortical tissue within the area but there is no comparison available for review to assess whether this is the patient's baseline appearance. It may be helpful to obtain a CT or MRI to ensure that none of this is secondary to a renal lesion. Alternatively a follow-up ultrasound could BE obtained to ensure no increase. Recommend Urology consult COMMENT/RELEVANT DATA Meds Current Medications Medications (Trade) Dose Ordered Sig/Richar Start Time Stop Time Status Last Admin Dose Admin Acetaminophen (Tylenol) 650 mg PRN Q4HRS PRN 03/24/20 18:00 Ceftriaxone Sodium (Rocephin) 1 gm Q24H 03/25/20 21:00 03/25/20 21:37 1 GM Dextrose (Dextrose 50%-Water Syringe) 12.5 gm PRN Q15MIN PRN 03/24/20 18:00 Docusate Sodium (Colace) 100 mg PRN DAILY PRN 03/24/20 18:00 Furosemide (Lasix) 20 mg 1X ONCE 03/24/20 18:00 03/24/20 18:01 DC 03/24/20 21:47 20 MG Heparin Sodium (Porcine) (Heparin Sodium) 5,000 unit Q12HR 03/24/20 21:00 03/25/20 21:47 5,000 UNIT Info (Non-Icu Electrolyte Protocol) 1 ea CONT PRN PRN 03/24/20 20:00 Insulin Glargine (Lantus Syringe) 40 unit QHS 03/25/20 21:00 03/25/20 22:25 40 UNIT Insulin Human Lispro (HumaLOG) 0-7 UNITS TIDWMEALS 03/25/20 08:00 03/26/20 08:20 4 UNITS Labetalol HCl (Normodyne Iv Push) 10 mg PRN Q3HRS PRN 03/24/20 18:00 Magnesium Oxide (Magnesium Oxide) 400 mg BID 03/24/20 21:00 03/26/20 09:01 UNV Magnesium Sulfate 50 ml @ 25 mls/hr Q24H 03/24/20 18:00 03/24/20 19:50 DC Medroxyprogesterone Acetate (Provera) 5 mg DAILY 03/25/20 10:15 03/25/20 12:31 5 MG Morphine Sulfate (Morphine Sulfate) 2 mg PRN Q2HR PRN 03/24/20 16:15 03/25/20 16:14 DC Ondansetron HCl (Zofran) 4 mg PRN Q6HRS PRN 03/24/20 18:00 Potassium Chloride/Water 100 ml @ 100 mls/hr Q1H PRN 03/24/20 18:00 UNV Potassium Chloride (Klor-Con) 40 meq 1X PRN 03/24/20 18:00 UNV Sennosides (Senna) 17.2 mg PRN BID PRN 03/24/20 18:00 Sodium Polystyrene Sulfonate (Kayexalate) 30 gm 1X ONCE 03/24/20 16:15 03/24/20 16:16 DC 03/24/20 16:54 30 GM Sodium Chloride 1,000 ml @ 1,000 mls/hr 1X ONCE 03/24/20 16:15 03/24/20 17:14 DC 03/24/20 16:54 1,000 MLS/HR Lab Laboratory Tests Test 03/25/20 11:22 03/25/20 16:24 03/25/20 22:18 03/26/20 04:50 Glucose (Fingerstick) 302 mg/dL (70-99) 322 mg/dL (70-99) 310 mg/dL (70-99) White Blood Count 8.9 x10^3/uL (4.0-11.0) Red Blood Count 2.30 x10^6/uL (3.50-5.40) Hemoglobin 6.9 g/dL (12.0-15.5) Hematocrit 19.6 % (36.0-47.0) Mean Corpuscular Volume 85 fL (79-100) Mean Corpuscular Hemoglobin 30 pg (25-35) Mean Corpuscular Hemoglobin Concent 36 g/dL (31-37) Red Cell Distribution Width 14.9 % (11.5-14.5) Platelet Count 171 x10^3/uL (140-400) Neutrophils (%) (Auto) 61 % (31-73) Lymphocytes (%) (Auto) 26 % (24-48) Monocytes (%) (Auto) 5 % (0-9) Eosinophils (%) (Auto) 7 % (0-3) Basophils (%) (Auto) 1 % (0-3) Neutrophils # (Auto) 5.4 x10^3/uL (1.8-7.7) Lymphocytes # (Auto) 2.4 x10^3/uL (1.0-4.8) Monocytes # (Auto) 0.5 x10^3/uL (0.0-1.1) Eosinophils # (Auto) 0.6 x10^3/uL (0.0-0.7) Basophils # (Auto) 0.0 x10^3/uL (0.0-0.2) Sodium Level 138 mmol/L (136-145) Potassium Level 4.5 mmol/L (3.5-5.1) Chloride Level 108 mmol/L (98-107) Carbon Dioxide Level 22 mmol/L (21-32) Anion Gap 8 (6-14) Blood Urea Nitrogen 29 mg/dL (7-20) Creatinine 2.0 mg/dL (0.6-1.0) Estimated GFR (Cockcroft-Gault) 26.7 Glucose Level 238 mg/dL (70-99) Calcium Level 8.1 mg/dL (8.5-10.1) Test 03/26/20 07:37 Glucose (Fingerstick) 201 mg/dL (70-99) Results All relevant outside records, renal labs, imaging studies, telemetry/EKG's were reviewed. Other INDICATION: Reason: KASEY , HTn sive urgency , On Lisniopril / Spl. Instructions: / History: COMPARISON: None. TECHNIQUE: Grayscale and color ultrasound images obtained of the bilateral kidneys and bladder. FINDINGS: Right Kidney: 124 mm. No hydronephrosis. There is some fullness of the cortex of the right kidney which has a mildly exophytic appearance. Left Kidney: 129 mm. No hydronephrosis. Lobulated appearance. Bladder: 85 cc prevoid. IMPRESSION: * There is a somewhat lobulated appearance of the cortex of the bilateral kidneys with focal thickening on the right. This could be secondary to some prominent cortical tissue within the area but there is no comparison available for review to assess whether this is the patient's baseline appearance. It may be helpful to obtain a CT or MRI to ensure that none of this is secondary to a renal lesion. Alternatively a follow-up ultrasound could BE obtained to ensure no increase. * No hydronephrosis. Justicifation of Admission Dx: Justifications for Admission: Justification of Admission Dx: Yes BELKYS HERNANDEZ MD Mar 26, 2020 09:36
[2020-03-26] MEDS: HEPARIN for SUB-Q USE 5,000 UNIT/ML VIAL. SQ SCH ×2 (09:39→21:07)
[2020-03-26 10:30] LABS: % BANDS 1 % (0-9); % EOS 1 % (0-5); % LYMPHS 18 % (24-48); % MONOS 8 % (0-10); % SEGS 72 % (35-66); PLT ESTIMATE ADEQUATE (ADEQUATE)
[2020-03-26] MEDS: INSULIN GLARGINE SYRINGE. SQ SCH ×2 (13:27→21:11)
--- NOTE | 2020-03-26 16:49 | NUR ---
SW following. Spoke with RN and reviewed chart. Discharge plan remains home with family, self-care. Pt to get a unit of blood today and pt's BP also elevated. Pt not ready for discharge today.
--- NOTE | 2020-03-26 16:56 | PDOC ---
[employer] PROGRESS NOTE Date of Service DOS: DATE: 03/26/20 TIME: 16:42 Chief Complaint Chief Complaint Assessment/Plan Hypertensive urgency Normocytic anemia due to iron deficiency versus menorrhagia, requiring 1 unit PRBC Acute electrolyte abnormalityhyponatremia, hyperkalemia with no acute EKG quiana nges KASEY due to vasomotor nephropathy unclear chronic kidney disease lobulated appearance of the cortex of the bilateral kidneys with focal thickening on the right. This could be secondary to some prominent cortical tissue within the area but there is no comparison Elevated BNP Severe protein malnutrition History of diabetes mellitus insulin-dependent Hyperglycemia uncontrolled plan CT abdomen pelvis ordered to rule out renal lesion test ordered Start IV PRBC transfusion today Trend H&H Admit to medicine for further management Nephrology consult Appreciate gynecology recommendations to start Provera and plan for D&C tomorrow at 9:45 AM Labetalol as needed for systolics greater than 180 Continue telemetry monitoring Strict I's and O's 20 mg IV Lasix 1x1 Heparin for DVT prophylaxis ADA diet Full code Discussed with RN and SW Disposition inpatient care as above Surrogate decision maker is d/w RN Justifications for Admission Justifications for Admission Other Justification HTN Urgency History of Present Illness History of Present Illness 45 year old Maltese-speaking female with history of diabetes type 2, hypertension, who presents to the ED today complaining of high blood pressure and left upper extremity pain. Patient states this morning she went to see her doctor and she was told her blood pressure systolic was in the 200s and sent to the ED to be evaluated. Patient states she was complaining of left arm pain and chills when she went to see the doctor. Denies any chest pain. Denies any injury. Denies any shortness of breath. She is also stating she had left eye surgery roughly 2 weeks ago and the left eye is still dilated. Patient is compliant with all her medications and she did not miss any of her lisinopril dose. Of note, patient also states that she has been having heavy menstrual bleeding in the past 3 months. She states that she was seen by her area field worker and they recommended possible surgery. 03/26/2020 No acute events overnight. Patient found to have low hemoglobin of 6.9 this morning. Pending transfusion of PRBC. No complaints voiced at this time. Patient's chart, labs, images were reviewed and discussed with RN Vitals/I&O Vitals/I&O: Vital Signs Date Time Temp Pulse Resp B/P (MAP) Pulse Ox O2 Delivery O2 Flow Rate FiO2 03/26/20 15:59 98.0 86 18 191/82 98.0 03/26/20 15:00 100 03/26/20 05:41 Room Air I & O 03/25/20 03/25/20 03/26/20 15:00 23:00 07:00 Intake Total 200 ml 400 ml Balance 200 ml 400 ml Physical Exam Physical Exam: GEN: No apparent distress. Alert and oriented HEENT: Normal cephalic, atraumatic, external auditory canals are patent NECK: Supple, no JVD, no thyromegaly was noted LUNGS: Bilateral clear HEART: RRR, S1, S2 present. Peripheral pulses intact, no obvious murmurs noted ABDOMEN: Soft, nontender. Positive bowel sounds, no organomegaly, normal bowel sounds EXTREMITIES: +1 pedal edema bilaterally General: Alert, Oriented X3, Cooperative, No acute distress Heart: Regular rate, Normal S1, Normal S2, No murmurs Abdomen: Normal bowel sounds, Soft, No tenderness, No hepatosplenomegaly, No masses Extremities: No clubbing, No cyanosis, No edema, Normal pulses, No tenderness/swelling Skin: No rashes, No breakdown Labs Labs: Laboratory Tests Test 03/25/20 22:18 03/26/20 04:50 03/26/20 07:37 03/26/20 11:06 Glucose (Fingerstick) 310 mg/dL (70-99) 201 mg/dL (70-99) 237 mg/dL (70-99) White Blood Count 8.9 x10^3/uL (4.0-11.0) Red Blood Count 2.30 x10^6/uL (3.50-5.40) Hemoglobin 6.9 g/dL (12.0-15.5) Hematocrit 19.6 % (36.0-47.0) Mean Corpuscular Volume 85 fL (79-100) Mean Corpuscular Hemoglobin 30 pg (25-35) Mean Corpuscular Hemoglobin Concent 36 g/dL (31-37) Red Cell Distribution Width 14.9 % (11.5-14.5) Platelet Count 171 x10^3/uL (140-400) Neutrophils (%) (Auto) 61 % (31-73) Lymphocytes (%) (Auto) 26 % (24-48) Monocytes (%) (Auto) 5 % (0-9) Eosinophils (%) (Auto) 7 % (0-3) Basophils (%) (Auto) 1 % (0-3) Neutrophils # (Auto) 5.4 x10^3/uL (1.8-7.7) Lymphocytes # (Auto) 2.4 x10^3/uL (1.0-4.8) Monocytes # (Auto) 0.5 x10^3/uL (0.0-1.1) Eosinophils # (Auto) 0.6 x10^3/uL (0.0-0.7) Basophils # (Auto) 0.0 x10^3/uL (0.0-0.2) Segmented Neutrophils % 72 % (35-66) Band Neutrophils % 1 % (0-9) Lymphocytes % 18 % (24-48) Monocytes % 8 % (0-10) Eosinophils % 1 % (0-5) Platelet Estimate Adequate (ADEQUATE) Sodium Level 138 mmol/L (136-145) Potassium Level 4.5 mmol/L (3.5-5.1) Chloride Level 108 mmol/L (98-107) Carbon Dioxide Level 22 mmol/L (21-32) Anion Gap 8 (6-14) Blood Urea Nitrogen 29 mg/dL (7-20) Creatinine 2.0 mg/dL (0.6-1.0) Estimated GFR (Cockcroft-Gault) 26.7 Glucose Level 238 mg/dL (70-99) Calcium Level 8.1 mg/dL (8.5-10.1) Assessment and Plan Assessmemt and Plan Problems Medical Problems: (1) Acute on chronic renal failure Status: Acute (2) Hyperglycemia Status: Acute (3) Hypertension Status: Acute Comment Review of Relevant I have reviewed the following items fransisco (where applicable) has been applied. Medications: Current Medications Medications (Trade) Dose Ordered Sig/Richar Route PRN Reason Start Time Stop Time Status Last Admin Dose Admin Ceftriaxone Sodium (Rocephin) 1 gm Q24H IVP 03/25/20 21:00 03/25/20 21:37 Insulin Glargine (Lantus Syringe) 30 unit DAILY SQ 03/26/20 09:00 03/26/20 13:27 Insulin Glargine (Lantus Syringe) 40 unit QHS SQ 03/25/20 21:00 03/25/20 22:25 Justifications for Admission Other Justification HTN Urgency DAMASO YO MD Mar 26, 2020 16:55
[2020-03-26 20:48] LABS: U PREG PATIENT NEGATIVE (NEG)
[2020-03-26 20:51] LABS: HEMATOCRIT 24.6 % (36.0-47.0); HEMOGLOBIN 8.5 g/dL (12.0-15.5)
[2020-03-26] MEDS: cefTRIAXone IV Push 1 GM VIAL. IVP SCH (21:08)
[2020-03-26] MEDS: LACTOBACILLUS RHAMNOSUS GG 1 CAPSULE. PO SCH (21:09)
[2020-03-27] VITALS (14 sets, daily range): BP systolic 153–199; BP diastolic 69–85
--- NOTE | 2020-03-27 01:21 | RAD ---
CT abdomen pelvis without contrast. HISTORY: Renal thickening by ultrasound, evaluate for renal mass CT scan of the abdomen pelvis was done without contrast. There is mild atelectasis in the lingula. No other basilar infiltrates are noted. There is no effusion. There is no calcified gallstone. A liver lesion is not identified. Spleen and adrenal glands are normal. Pancreatic mass is not identified. Kidneys are not optimally evaluated without contrast but a renal mass is not identified. There is no renal calculus or hydronephrosis. There are multiple phleboliths in the pelvis. Uterus and ovaries are unremarkable. There is moderate stool in the colon. Appendix is normal. There is gas in the bladder correlation with any history of catheterization would be of benefit. No other bladder lesion is noted. IMPRESSION: 1. No mass or calculus noted in the kidneys. 2. Gas noted in the bladder correlation with history of catheterization would be of benefit. 3. No abdominal or pelvic mass noted. PQRS Compliance Statement: One or more of the following individualized dose reduction techniques were utilized for this examination: 1. Automated exposure control 2. Adjustment of the mA and/or kV according to patient size 3. Use of iterative reconstruction technique Electronically signed by: Star Shukla MD (03/27/2020 1:18 AM) [id number]
[2020-03-27] MEDS ORDERED: HYDROmorphone 2 MG/ML VIAL IV PRN (07:00)
[2020-03-27] MEDS ORDERED: MORPHINE SULFATE 2 MG/ML VIAL. IV PRN (07:00)
[2020-03-27] MEDS ORDERED: fentaNYL PF VIAL 100 MCG/2 ML VIAL IV PRN ×2 (07:00)
[2020-03-27] MEDS ORDERED: IV RINGERS,LACTATED 1000ML 1,000 ML IV SCH (07:00)
[2020-03-27] MEDS ORDERED: ONDANSETRON PF 4 MG/2 ML VIAL. IV PRN (07:00)
[2020-03-27] MEDS ORDERED: LIDOCAINE 1% PF 2 ML VIAL. ID PRN (07:00)
[2020-03-27] MEDS ORDERED: PROCHLORPERAZINE 10 MG/2 ML VIAL. IV PRN (07:00)
[2020-03-27] MEDS: INSULIN LISPRO 300 UNITS/3 ML VIAL. SQ SCH ×4 (08:00→21:23)
[2020-03-27] MEDS ORDERED: PROPOFOL 10 MG/ML (20ML) VIAL. IV ONE (08:47)
[2020-03-27] MEDS ORDERED: SEVOFLURANE 31 TO 60 MINUTES. IH ONE (08:47)
[2020-03-27] MEDS ORDERED: LIDOCAINE 2% PF 5 ML VIAL. ONE (08:48)
[2020-03-27] MEDS ORDERED: DEXAMETHASONE SOD PHOS 4 MG/ML VIAL ONE (08:48)
[2020-03-27] MEDS ORDERED: KETOROLAC 30 MG/ML VIAL. ONE (08:48)
[2020-03-27] MEDS ORDERED: ONDANSETRON PF 4 MG/2 ML VIAL. ONE (08:48)
[2020-03-27] MEDS: HEPARIN for SUB-Q USE 5,000 UNIT/ML VIAL. SQ SCH ×2 (09:00→21:00)
[2020-03-27] MEDS: INSULIN GLARGINE SYRINGE. SQ SCH ×3 (09:00→21:17)
[2020-03-27] MEDS ORDERED: SCOPOLAMINE 1.5MG PATCH. TD ONE (09:15)
--- NOTE | 2020-03-27 10:13 | PDOC ---
DATE OF SERVICE DATE: 03/27/20 TIME: 10:11 SUBJECTIVE ROS Stable , no new concerns voiced by RN OBJECTIVE Vital Signs Vital Signs Date Time Temp Pulse Resp B/P (MAP) Pulse Ox O2 Delivery O2 Flow Rate FiO2 03/27/20 09:07 98.8 88 15 198/86 100 Room Air 98.8 I & 0 Intake and Output 03/27/20 07:00 Intake Total 1240 ml Output Total 500 ml Balance 740 ml Intake Oral 460 ml Blood Product IV Normal Saline Flush 780 ml Output Urine Total 500 ml # Voids 2 PHYSICAL EXAM Physical Exam GEN: No apparent distress. HEENT: OM moist NECK: Supple LUNGS: Clear to auscultation, Non labored HEART: RRR, S!, S2 present. ABDOMEN: Soft, nontender. Positive bowel sounds, no organomegaly, EXTREMITIES: No clubbing, cyanosis. Trace Bilat LE edema + NEUROLOGIC: NA&O x 3, moves all extremities, no obvious focal deficits PSYCHIATRIC: Normal affect, normal mood. SKIN: No ulcerations or rashes, good skin turgor, no jaundice No Hanson, o SP or CVA tenderness DIAGNOSIS/ASSESSMENT Assessment & Plan KASEY - Vasomotor, Vomiting , Use of NSAID's ,UTI Recd 1 Lt IVF in ER, currently not on Fluids,stable renal function , labs pending today E-Lytes stable, no emergent indication for dialysis , supportive care, strict I/O (not accurate), avoid nephrotoxins Renal US reviewed CKD stage 3 - Pt and family not aware. Records from PCP reviewed, Labs were sent only from Feb 2020 with Cr 1.8 and Hyperkalemia No Dx of CKD in PCP's records . Suspect her current creatinine likely is close to her baseline Vomiting - at home, Monitor UTI-pt symptomatic , Defer to primary DM- Uncontrolled DM with per PCP note . Was on Lisinopril at home Anemia acute 2/2 Menorrhagia s/p PRBC on 03/26 HTN - Systolic in 200's, much better now , Renal Doppler no e/o GEORGE Menorrhagia schedule pt for H/S, D&C, Ablation on 03/27 Renal US - somewhat lobulated appearance of the cortex of the bilateral kidneys with focal thickening on the right. This could be secondary to some prominent cortical tissue within the area but there is no comparison available for review to assess whether this is the patient's baseline appearance. It may be helpful to obtain a CT or MRI to ensure that none of this is secondary to a renal lesion. Alternatively a follow-up ultrasound could BE obtained to ensure no increase. Recommend Urology consult COMMENT/RELEVANT DATA Meds Current Medications Medications (Trade) Dose Ordered Sig/Richar Start Time Stop Time Status Last Admin Dose Admin Acetaminophen (Tylenol) 650 mg PRN Q4HRS PRN 03/24/20 18:00 Amlodipine Besylate (Norvasc) 10 mg QHS 03/27/20 21:00 Ceftriaxone Sodium (Rocephin) 1 gm Q24H 03/25/20 21:00 03/26/20 21:08 1 GM Dexamethasone Sodium Phosphate (Decadron) 4 mg STK-MED ONCE 03/27/20 08:48 03/27/20 08:48 DC Dextrose (Dextrose 50%-Water Syringe) 12.5 gm PRN Q15MIN PRN 03/24/20 18:00 Docusate Sodium (Colace) 100 mg PRN DAILY PRN 03/24/20 18:00 Fentanyl Citrate (Fentanyl 2ml Vial) 50 mcg PRN Q5MIN PRN 03/27/20 07:00 03/28/20 06:59 Furosemide (Lasix) 20 mg 1X ONCE 03/24/20 18:00 03/24/20 18:01 DC 03/24/20 21:47 20 MG Heparin Sodium (Porcine) (Heparin Sodium) 5,000 unit Q12HR 03/24/20 21:00 03/26/20 09:39 5,000 UNIT Hydromorphone HCl (Dilaudid) 0.5 mg PRN Q10MIN PRN 03/27/20 07:00 03/28/20 06:59 Info (Non-Icu Electrolyte Protocol) 1 ea CONT PRN PRN 03/24/20 20:00 Insulin Glargine (Lantus Syringe) 40 unit QHS 03/25/20 21:00 03/26/20 21:11 40 UNIT Insulin Human Lispro (HumaLOG) 0-7 UNITS TIDWMEALS 03/25/20 08:00 03/26/20 17:49 6 UNITS Ketorolac Tromethamine (Toradol 30mg Vial) 30 mg STK-MED ONCE 03/27/20 08:48 10/22/20 08:48 DC Labetalol HCl (Normodyne Iv Push) 10 mg PRN Q3HRS PRN 03/24/20 18:00 Lactobacillus Rhamnosus (Culturelle) 1 cap BID 03/26/20 21:00 03/26/20 21:09 1 CAP Lidocaine HCl (Lidocaine Pf 2% Vial) 5 ml STK-MED ONCE 03/27/20 08:48 03/27/20 08:48 DC Lidocaine HCl (Xylocaine-Mpf 1% 2ml Vial) 2 ml PRN 1X PRN 03/27/20 07:00 03/28/20 06:59 Magnesium Oxide (Magnesium Oxide) 400 mg BID 03/24/20 21:00 03/26/20 09:01 UNV Magnesium Sulfate 50 ml @ 25 mls/hr Q24H 03/24/20 18:00 03/24/20 19:50 DC Medroxyprogesterone Acetate (Provera) 5 mg DAILY 03/25/20 10:15 03/26/20 09:38 5 MG Morphine Sulfate (Morphine Sulfate) 1 mg PRN Q10MIN PRN 03/27/20 07:00 03/28/20 06:59 Ondansetron HCl (Zofran) 4 mg STK-MED ONCE 03/27/20 08:48 03/27/20 08:48 DC Potassium Chloride/Water 100 ml @ 100 mls/hr Q1H PRN 03/24/20 18:00 UNV Potassium Chloride (Klor-Con) 40 meq 1X PRN 03/24/20 18:00 UNV Prochlorperazine Edisylate (Compazine) 5 mg PACU PRN PRN 03/27/20 07:00 03/28/20 06:59 Propofol (Diprivan) 200 mg STK-MED ONCE 03/27/20 08:47 03/27/20 08:48 DC Ringer's Solution 1,000 ml @ 30 mls/hr Q24H 03/27/20 07:00 03/27/20 18:59 03/27/20 09:09 30 MLS/HR Scopolamine (Transderm-Scop) 1 patch 1X ONCE 03/27/20 09:15 03/27/20 09:16 DC 03/27/20 09:00 1 PATCH Sennosides (Senna) 17.2 mg PRN BID PRN 03/24/20 18:00 Sevoflurane (Ultane) 30 ml STK-MED ONCE 03/27/20 08:47 03/27/20 08:48 DC Sodium Polystyrene Sulfonate (Kayexalate) 30 gm 1X ONCE 03/24/20 16:15 03/24/20 16:16 DC 03/24/20 16:54 30 GM Sodium Chloride 1,000 ml @ 1,000 mls/hr 1X ONCE 03/24/20 16:15 03/24/20 17:14 DC 03/24/20 16:54 1,000 MLS/HR Lab Laboratory Tests Test 03/26/20 11:06 03/26/20 16:54 03/26/20 18:20 03/26/20 19:35 Glucose (Fingerstick) 237 mg/dL (70-99) 292 mg/dL (70-99) SARS-CoV-2 Antigen (Rapid) Negative (NEGATIVE) Urine Test Negative (NEG) Test 03/26/20 20:30 03/26/20 20:33 03/27/20 08:49 Hemoglobin 8.5 g/dL (12.0-15.5) Hematocrit 24.6 % (36.0-47.0) Mean Corpuscular Hemoglobin Concent 34 g/dL (31-37) Glucose (Fingerstick) 174 mg/dL (70-99) 96 mg/dL (70-99) Results All relevant outside records, renal labs, imaging studies, telemetry/EKG's were reviewed. Justicifation of Admission Dx: Justifications for Admission: Justification of Admission Dx: Yes BELKYS HERNANDEZ MD Mar 27, 2020 10:13
--- NOTE | 2020-03-27 10:27 | PDOC4 ---
OPERATIVE NOTE: PreOp Dx: 1.) Menorrhagia, 2.) anemia, 3.) HTN, 4.) DM type II, 5.) ARF PostOp Dx: same Procedure: H/S, D&C, Novasure ablation Surgeon: Joseline Beckwith Anesthesia: LMA EBL: 10cc Fluids: 600cc UOP: 200cc Complication: none Findings: benign appearing endometrium, large clot in uteruse Path: endometrial curetting FARIBA BECKWITH MD Mar 27, 2020 10:27
[2020-03-27] MEDS ORDERED: fentaNYL PF VIAL 100 MCG/2 ML VIAL ONE (10:38)
--- NOTE | 2020-03-27 11:25 | PDOC ---
[facility] PROGRESS NOTE Date of Service DOS: DATE: 03/27/20 TIME: 11:22 Chief Complaint Chief Complaint Assessment/Plan Hypertensive urgency Normocytic anemia due to iron deficiency versus menorrhagia, requiring 1 unit PRBC Acute electrolyte abnormalityhyponatremia, hyperkalemia with no acute EKG quiana nges KASEY due to vasomotor nephropathy unclear chronic kidney disease lobulated appearance of the cortex of the bilateral kidneys with focal thickening on the right. This could be secondary to some prominent cortical tissue within the area but there is no comparison Elevated BNP Severe protein malnutrition History of diabetes mellitus insulin-dependent Hyperglycemia uncontrolled plan Completed PRBC transfusion and H&H is stable Nephrology consult Appreciate gynecology recommendationson-call to the OR today for D&C ablation Labetalol as needed for systolics greater than 180 Continue telemetry monitoring Strict I's and O's Heparin for DVT prophylaxis ADA diet Full code Discussed with RN and SW Disposition inpatient care as above Surrogate decision maker is d/w RN Justifications for Admission Justifications for Admission Other Justification HTN Urgency History of Present Illness History of Present Illness 45 year old Estonian-speaking female with history of diabetes type 2, hypertension, who presents to the ED today complaining of high blood pressure and left upper extremity pain. Patient states this morning she went to see her doctor and she was told her blood pressure systolic was in the 200s and sent to the ED to be evaluated. Patient states she was complaining of left arm pain and chills when she went to see the doctor. Denies any chest pain. Denies any injury. Denies any shortness of breath. She is also stating she had left eye surgery roughly 2 weeks ago and the left eye is still dilated. Patient is compliant with all her medications and she did not miss any of her lisinopril dose. Of note, patient also states that she has been having heavy menstrual bleeding in the past 3 months. She states that she was seen by her risk control officer and they recommended possible surgery. 03/26/2020 No acute events overnight. Patient found to have low hemoglobin of 6.9 this morning. Pending transfusion of PRBC. No complaints voiced at this time. Patient's chart, labs, images were reviewed and discussed with RN 03/27/2020 Patient on-call to the OR today for D&C ablation. No complaints voiced at this time. Patient's chart, labs, images were reviewed and discussed with RN Vitals/I&O Vitals/I&O: Vital Signs Date Time Temp Pulse Resp B/P (MAP) Pulse Ox O2 Delivery O2 Flow Rate FiO2 03/27/20 10:59 98.8 77 15 175/70 98 Room Air 98.8 I & O 03/26/20 03/26/20 03/27/20 15:00 23:00 07:00 Intake Total 750 ml 490 ml 0 ml Output Total 500 ml Balance 750 ml -10 ml 0 ml Physical Exam Physical Exam: GEN: No apparent distress. Alert and oriented HEENT: Normal cephalic, atraumatic, external auditory canals are patent NECK: Supple, no JVD, no thyromegaly was noted LUNGS: Bilateral clear HEART: RRR, S1, S2 present. Peripheral pulses intact, no obvious murmurs noted ABDOMEN: Soft, nontender. Positive bowel sounds, no organomegaly, normal bowel sounds EXTREMITIES: +1 pedal edema bilaterally General: Alert, Oriented X3, Cooperative, No acute distress Heart: Regular rate, Normal S1, Normal S2, No murmurs Abdomen: Normal bowel sounds, Soft, No tenderness, No hepatosplenomegaly, No masses Extremities: No clubbing, No cyanosis, No edema, Normal pulses, No tenderness/swelling Skin: No rashes, No breakdown Labs Labs: Laboratory Tests Test 03/26/20 16:54 03/26/20 18:20 03/26/20 19:35 03/26/20 20:30 Glucose (Fingerstick) 292 mg/dL (70-99) SARS-CoV-2 Antigen (Rapid) Negative (NEGATIVE) Urine Test Negative (NEG) Hemoglobin 8.5 g/dL (12.0-15.5) Hematocrit 24.6 % (36.0-47.0) Mean Corpuscular Hemoglobin Concent 34 g/dL (31-37) Test 03/26/20 20:33 03/27/20 08:49 03/27/20 10:37 Glucose (Fingerstick) 174 mg/dL (70-99) 96 mg/dL (70-99) 94 mg/dL (70-99) Assessment and Plan Assessmemt and Plan Problems Medical Problems: (1) Acute on chronic renal failure Status: Acute (2) Hyperglycemia Status: Acute (3) Hypertension Status: Acute Comment Review of Relevant I have reviewed the following items fransisco (where applicable) has been applied. Medications: Current Medications Medications (Trade) Dose Ordered Sig/Richar Route PRN Reason Start Time Stop Time Status Last Admin Dose Admin Lactobacillus Rhamnosus (Culturelle) 1 cap BID PO 03/26/20 21:00 03/26/20 21:09 Fentanyl Citrate (Fentanyl 2ml Vial) 50 mcg PRN Q5MIN PRN IV MODERATE TO SEVERE PAIN 03/27/20 07:00 03/28/20 06:59 03/27/20 10:42 Ringer's Solution 1,000 ml @ 30 mls/hr Q24H IV 03/27/20 07:00 03/27/20 18:59 03/27/20 09:09 Scopolamine (Transderm-Scop) 1 patch 1X ONCE TD 03/27/20 09:15 03/27/20 09:16 DC 03/27/20 09:00 Justifications for Admission Other Justification HTN Urgency DAMASO YO MD Mar 27, 2020 11:25
--- NOTE | 2020-03-27 11:30 | OP ---
DATE OF SURGERY: 03/27/2020 PREOPERATIVE DIAGNOSES: 1. Menorrhagia. 2. Anemia. 3. Hypertension. 4. Diabetes type 2. 5. Acute renal failure. POSTOPERATIVE DIAGNOSES: 1. Menorrhagia. 2. Anemia. 3. Hypertension. 4. Diabetes type 2. 5. Acute renal failure. PROCEDURE: Hysteroscopy, D and C, and NovaSure ablation. SURGEON: Fariba Beckwith MD. ANESTHESIA: LMA. ESTIMATED BLOOD LOSS: 10 mL. FLUIDS: 600 mL. URINE OUTPUT: 200 mL. COMPLICATIONS: None. FINDINGS: Benign appearing endometrium. Large clot in the center of the uterus. PATHOLOGY: Endometrial curetting. DESCRIPTION OF PROCEDURE: The patient was taken to the operating room where LMA was placed without difficulty. The patient was prepped and draped in normal sterile fashion. A speculum was placed to visualize the cervix. The anterior lip of the cervix was then grasped with a single tooth tenaculum. The cervix was then sounded and found to be 4 cm. The uterus with the cervix was found to be 9 cm, making the uterine cavity 5 cm. At that point, the cervix needed to be dilated a little to allow for the hysteroscope to be placed. The placement of the hysteroscope revealed normal endometrial tissue, but a large clot in the center of the uterus. This was attempted to be flushed out with the hysteroscope. The hysteroscope was then removed. At that point, a curettage was performed until gritty texture was felt in all 4 quadrants. The specimen sent to pathology. Once the curettage had been complete, the NovaSure was then placed in the endometrial cavity and opened. The width was found to be approximately 3 cm. At that point, the measurements were placed in the NovaSure tower. The device was then activated and ablation was occurred. Once completed, the NovaSure was removed and the hysteroscope was then replaced to show good ablative tissue throughout the endometrial cavity. At that point, the hysteroscope was removed, the tenaculum was removed. Good hemostasis was noted. The patient was brought to the recovery room in stable condition. FARIBA BECKWITH MD DR: RUSSELL/ofelia JOB#: [id number] / [id number]
[2020-03-27 13:06] LABS: HEMOGLOBIN 10.4 g/dL (12.0-15.5)
[2020-03-27 13:37] LABS: CALCIUM 9.3 mg/dL (8.5-10.1); CREATININE 1.8 mg/dL (0.6-1.0); GFR 30.2; POTASSIUM 4.6 mmol/L (3.5-5.1)
--- NOTE | 2020-03-27 15:46 | NUR ---
SW following. Spoke with RN and reviewed chart. Discharge plan remains home with family, self-care. Pt to have procedure today with possible discharge tomorrow, 03/28. SW available as needed.
[2020-03-27] MEDS: ACETAMINOPHEN 325 MG TABLET. PO PRN ×2 (16:02→23:24)
[2020-03-27] MEDS: LACTOBACILLUS RHAMNOSUS GG 1 CAPSULE. PO SCH ×2 (16:02→21:13)
[2020-03-27] MEDS: oxyCODONE/APAP 5/325 1 TAB TABLET PO PRN (18:12)
[2020-03-27] MEDS ORDERED: amLODIPine BESYLATE 10 MG TABLET PO SCH (21:00)
[2020-03-27] MEDS: CEFDINIR 300 MG CAPSULE PO SCH (21:13)
[2020-03-28 03:03] VITALS: BP 159/73
[2020-03-28 06:58] LABS: CALCIUM 8.5 mg/dL (8.5-10.1); CREATININE 2.3 mg/dL (0.6-1.0); GFR 22.7; POTASSIUM 4.6 mmol/L (3.5-5.1)
[2020-03-28 07:00] VITALS: BP 170/76
[2020-03-28] MEDS: INSULIN LISPRO 300 UNITS/3 ML VIAL. SQ SCH ×3 (07:30→17:21)
[2020-03-28] MEDS ORDERED: AMLO-187 PO (09:08)
[2020-03-28] MEDS ORDERED: MEDR2.5T28 PO (09:08)
--- NOTE | 2020-03-28 09:10 | DISCH ---
DISCHARGE INSTRUCTIONS Condition on Discharge Condition on Discharge: Stable Activity After Discharge Activity Instructions for Disc: Activity as tolerated Driving Instructions after Dis: Do not drive today Diet after Discharge Diet after Discharge: Diabetic No Calorie Level Checks after Discharge DC Comment: CBC, CMP within 1 week of discharge Follow-Up Follow up with: PCP within 1 week of Discharge Follow Up With: Gynecology as scheduled. Nephrology MARIA M DAMASO YO MD Mar 28, 2020 09:10
[2020-03-28] MEDS: CEFDINIR 300 MG CAPSULE PO SCH (09:34)
[2020-03-28] MEDS: LACTOBACILLUS RHAMNOSUS GG 1 CAPSULE. PO SCH (09:34)
[2020-03-28] MEDS: HEPARIN for SUB-Q USE 5,000 UNIT/ML VIAL. SQ SCH (09:53)
[2020-03-28] MEDS: INSULIN GLARGINE SYRINGE. SQ SCH (09:54)
--- NOTE | 2020-03-28 09:57 | PDOC ---
[facility] [employer] PROGRESS NOTE Date of Service: DATE: 03/28/20 TIME: 09:57 Subjective: Pt with some pain, but well controlled. Discussed surgery with pt. Objective: Vital Signs: Vital Signs Date Time Temp Pulse Resp B/P (MAP) Pulse Ox O2 Delivery O2 Flow Rate FiO2 03/27/20 07:00 98.8 79 18 169/76 (107) 100 Room Air 98.8 Vital Signs Date Time Temp Pulse Resp B/P (MAP) Pulse Ox O2 Delivery O2 Flow Rate FiO2 03/28/20 07:00 98.2 77 18 170/76 (107) 98 Room Air 98.2 Labs: Laboratory Tests Test 03/27/20 10:37 03/27/20 11:41 03/27/20 12:41 03/27/20 16:50 Glucose (Fingerstick) 94 mg/dL (70-99) 111 mg/dL (70-99) H 256 mg/dL (70-99) H Hemoglobin 10.4 g/dL (12.0-15.5) L Hematocrit 31.0 % (36.0-47.0) L Mean Corpuscular Hemoglobin Concent 34 g/dL (31-37) Sodium Level 139 mmol/L (136-145) Potassium Level 4.6 mmol/L (3.5-5.1) Chloride Level 107 mmol/L (98-107) Carbon Dioxide Level 20 mmol/L (21-32) L Anion Gap 12 (6-14) Blood Urea Nitrogen 26 mg/dL (7-20) H Creatinine 1.8 mg/dL (0.6-1.0) H Estimated GFR (Cockcroft-Gault) 30.2 Glucose Level 150 mg/dL (70-99) H Calcium Level 9.3 mg/dL (8.5-10.1) Test 03/27/20 20:32 03/28/20 05:40 03/28/20 07:21 Glucose (Fingerstick) 378 mg/dL (70-99) H 107 mg/dL (70-99) H Sodium Level 134 mmol/L (136-145) L Potassium Level 4.6 mmol/L (3.5-5.1) Chloride Level 107 mmol/L (98-107) Carbon Dioxide Level 21 mmol/L (21-32) Anion Gap 6 (6-14) Blood Urea Nitrogen 38 mg/dL (7-20) H Creatinine 2.3 mg/dL (0.6-1.0) H Estimated GFR (Cockcroft-Gault) 22.7 Glucose Level 163 mg/dL (70-99) H Calcium Level 8.5 mg/dL (8.5-10.1) Laboratory Tests 03/27/20 12:41 Laboratory Tests 03/27/20 12:41 03/28/20 05:40 Laboratory Tests 03/27/20 12:41 03/28/20 05:40 Physical Exam: GENERAL: No apparent distress. Alert and oriented. HEENT: Head normocephalic, atraumatic. NECK: Supple LUNGS: Clear to auscultation. HEART: RRR, S1, S2 present, pulses intact ABDOMEN: Soft, positive bowel sounds. EXTREMITIES: No cyanosis or edema. NEUROLOGIC: Normal speech, normal tone PSYCHIATRIC: Normal affect, normal mood. SKIN: No ulceration. Assessment & Plan: A/P 45y admitted to the hospital for HTN urgency 1.) Menorrhagia POD #1 s/p H/S, D&C, Ablation, doing well 2.) Anemia Hgb 10.4 yesterday, appropriate rise after transfusion 3.) Hypertensive urgency improved, per primary team 4.) ARF Cr up to 2.3 (previous 1.8), per nephrology 5.) DM type 2 on insulin 6.) Pt given card with time and location for PO appt (04/03 at 10:30am) 7.) Will continue to follow FARIBA BECKWITH MD Mar 28, 2020 09:57
[2020-03-28] MEDS ORDERED: LISI-130 PO (10:59)
[2020-03-28 11:00] VITALS: BP 150/70
[2020-03-28] MEDS ORDERED: LISINOPRIL 20 MG TABLET PO SCH (11:00)
--- NOTE | 2020-03-28 12:16 | NUR ---
SW following. Discussed with RN, pt from home with family. RN advised no SW needs at this time. Discharge order for home with self care if okay with nephrology. SW will continue to follow should any discharge needs arise.
--- NOTE | 2020-03-28 13:01 | PDOC ---
DATE OF SERVICE DATE: 03/28/20 TIME: 12:56 SUBJECTIVE ROS Stable , no new concerns voiced by RN OBJECTIVE Vital Signs Vital Signs Date Time Temp Pulse Resp B/P (MAP) Pulse Ox O2 Delivery O2 Flow Rate FiO2 03/28/20 07:00 98.2 77 18 170/76 (107) 98 Room Air 98.2 I & 0 Intake and Output 03/28/20 07:00 Intake Total 550 ml Output Total 210 ml Balance 340 ml Intake Oral 50 ml IV Total 500 ml Output Urine Total 200 ml Estimated Blood Loss 10 ml # Voids 3 PHYSICAL EXAM Physical Exam GEN: No apparent distress. HEENT: OM moist NECK: Supple LUNGS: Clear to auscultation, Non labored HEART: RRR, S!, S2 present. ABDOMEN: Soft, nontender. Positive bowel sounds, no organomegaly, EXTREMITIES: No clubbing, cyanosis. Trace Bilat LE edema + NEUROLOGIC: NA&O x 3, moves all extremities, no obvious focal deficits PSYCHIATRIC: Normal affect, normal mood. SKIN: No ulcerations or rashes, good skin turgor, no jaundice No Hanson, o SP or CVA tenderness DIAGNOSIS/ASSESSMENT Assessment & Plan KASEY - Vasomotor, Vomiting , Use of NSAID's ,UTI Cr 1.8-2.3 during this hospitalization E-Lytes stable, supportive care, strict I/O (not accurate), avoid nephrotoxins CKD stage 3 - Pt and family not aware. Records from PCP reviewed, Labs were sent only from Feb 2020 with Cr 1.8 and Hyperkalemia No Dx of CKD in PCP's records . Suspect her current creatinine likely is close to her baseline UTI-pt symptomatic , Defer to primary Gas noted in the bladder on CT c- if no Hx of catheterization recommned follow up with Urology DM- Uncontrolled DM with per PCP note . Was on Lisinopril at home Anemia acute 2/2 Menorrhagia s/p PRBC on 03/26 HTN - Systolic in 200's, much better now , Renal Doppler no e/o GEORGE Menorrhagia H/S, D&C, Ablation on 03/27 From renal standpoint OK TO DC , fu Renal labs with PCP in 2-3 weeks Appt with us - routine Renal US - somewhat lobulated appearance of the cortex of the bilateral kidneys with focal thickening on the right. This could be secondary to some prominent cortical tissue within the area but there is no comparison available for review to assess whether this is the patient's baseline appearance. It may be helpful to obtain a CT or MRI to ensure that none of this is secondary to a renal lesion. Alternatively a follow-up ultrasound could BE obtained to ensure no increase. CT abdomen pelvis without contrast. CT scan of the abdomen pelvis was done without contrast. There is mild atelectasis in the lingula. No other basilar infiltrates are noted. There is no effusion. There is no calcified gallstone. A liver lesion is not identified. Spleen and adrenal glands are normal. Pancreatic mass is not identified. Kidneys are not optimally evaluated without contrast but a renal mass is not identified. There is no renal calculus or hydronephrosis. There are multiple phleboliths in the pelvis. Uterus and ovaries are unremarkable. There is moderate stool in the colon. Appendix is normal. There is gas in the bladder correlation with any history of catheterization would be of benefit. No other bladder lesion is noted. IMPRESSION: 1. No mass or calculus noted in the kidneys. 2. Gas noted in the bladder correlation with history of catheterization would be of benefit. 3. No abdominal or pelvic mass noted. COMMENT/RELEVANT DATA Meds Current Medications Medications (Trade) Dose Ordered Sig/Richar Start Time Stop Time Status Last Admin Dose Admin Acetaminophen (Tylenol) 650 mg PRN Q6HRS PRN 03/27/20 16:00 03/27/20 23:24 650 MG Amlodipine Besylate (Norvasc) 10 mg QHS 03/27/20 21:00 03/27/20 21:13 10 MG Cefdinir (Omnicef) 300 mg BID 03/27/20 21:00 03/28/20 09:34 300 MG Ceftriaxone Sodium (Rocephin) 1 gm Q24H 03/25/20 21:00 03/27/20 12:21 DC 03/26/20 21:08 1 GM Dexamethasone Sodium Phosphate (Decadron) 4 mg STK-MED ONCE 03/27/20 08:48 03/27/20 08:48 DC Dextrose (Dextrose 50%-Water Syringe) 12.5 gm PRN Q15MIN PRN 03/24/20 18:00 Docusate Sodium (Colace) 100 mg PRN DAILY PRN 03/24/20 18:00 03/27/20 18:12 100 MG Fentanyl Citrate (Fentanyl 2ml Vial) 100 mcg STK-MED ONCE 03/27/20 10:38 03/27/20 10:39 DC Furosemide (Lasix) 20 mg 1X ONCE 03/24/20 18:00 03/24/20 18:01 DC 03/24/20 21:47 20 MG Heparin Sodium (Porcine) (Heparin Sodium) 5,000 unit Q12HR 03/24/20 21:00 03/28/20 09:53 5,000 UNIT Hydromorphone HCl (Dilaudid) 0.5 mg PRN Q10MIN PRN 03/27/20 07:00 03/28/20 06:59 DC Info (Non-Icu Electrolyte Protocol) 1 ea CONT PRN PRN 03/24/20 20:00 Insulin Glargine (Lantus Syringe) 40 unit QHS 03/25/20 21:00 03/27/20 21:17 40 UNIT Insulin Human Lispro (HumaLOG) 0-7 UNITS QIDACHS 03/27/20 21:30 03/27/20 21:23 7 UNITS Ketorolac Tromethamine (Toradol 30mg Vial) 30 mg STK-MED ONCE 03/27/20 08:48 03/27/20 08:48 DC Labetalol HCl (Normodyne Iv Push) 10 mg PRN Q3HRS PRN 03/24/20 18:00 03/27/20 12:18 10 MG Lactobacillus Rhamnosus (Culturelle) 1 cap BID 03/26/20 21:00 03/28/20 09:34 1 CAP Lidocaine HCl (Lidocaine Pf 2% Vial) 5 ml STK-MED ONCE 03/27/20 08:48 03/27/20 08:48 DC Lidocaine HCl (Xylocaine-Mpf 1% 2ml Vial) 2 ml PRN 1X PRN 03/27/20 07:00 03/28/20 06:59 DC Lisinopril (Prinivil) 20 mg DAILY 03/28/20 11:00 Magnesium Oxide (Magnesium Oxide) 400 mg BID 10/19/20 21:00 03/26/20 09:01 UNV Magnesium Sulfate 50 ml @ 25 mls/hr Q24H 03/24/20 18:00 03/24/20 19:50 DC Medroxyprogesterone Acetate (Provera) 5 mg DAILY 03/25/20 10:15 03/28/20 09:34 5 MG Morphine Sulfate (Morphine Sulfate) 1 mg PRN Q10MIN PRN 03/27/20 07:00 03/28/20 06:59 DC Ondansetron HCl (Zofran) 4 mg STK-MED ONCE 03/27/20 08:48 03/27/20 08:48 DC Oxycodone/ Acetaminophen (Percocet 5/325) 1 tab PRN Q6HRS PRN 03/27/20 18:15 03/27/20 18:12 1 TAB Potassium Chloride/Water 100 ml @ 100 mls/hr Q1H PRN 03/24/20 18:00 UNV Potassium Chloride (Klor-Con) 40 meq 1X PRN 03/24/20 18:00 UNV Prochlorperazine Edisylate (Compazine) 5 mg PACU PRN PRN 03/27/20 07:00 03/28/20 06:59 DC Propofol (Diprivan) 200 mg STK-MED ONCE 03/27/20 08:47 03/27/20 08:48 DC Ringer's Solution 1,000 ml @ 30 mls/hr Q24H 03/27/20 07:00 03/27/20 18:59 DC 03/27/20 09:09 30 MLS/HR Scopolamine (Transderm-Scop) 1 patch 1X ONCE 03/27/20 09:15 03/27/20 09:16 DC 03/27/20 09:00 1 PATCH Sennosides (Senna) 17.2 mg PRN BID PRN 03/24/20 18:00 03/27/20 18:11 17.2 MG Sevoflurane (Ultane) 30 ml STK-MED ONCE 03/27/20 08:47 03/27/20 08:48 DC Sodium Polystyrene Sulfonate (Kayexalate) 30 gm 1X ONCE 03/24/20 16:15 03/24/20 16:16 DC 03/24/20 16:54 30 GM Sodium Chloride 1,000 ml @ 1,000 mls/hr 1X ONCE 03/24/20 16:15 03/24/20 17:14 DC 03/24/20 16:54 1,000 MLS/HR Lab Laboratory Tests Test 03/27/20 16:50 03/27/20 20:32 03/28/20 05:40 03/28/20 07:21 Glucose (Fingerstick) 256 mg/dL (70-99) 378 mg/dL (70-99) 107 mg/dL (70-99) Sodium Level 134 mmol/L (136-145) Potassium Level 4.6 mmol/L (3.5-5.1) Chloride Level 107 mmol/L (98-107) Carbon Dioxide Level 21 mmol/L (21-32) Anion Gap 6 (6-14) Blood Urea Nitrogen 38 mg/dL (7-20) Creatinine 2.3 mg/dL (0.6-1.0) Estimated GFR (Cockcroft-Gault) 22.7 Glucose Level 163 mg/dL (70-99) Calcium Level 8.5 mg/dL (8.5-10.1) Test 03/28/20 12:12 Glucose (Fingerstick) 88 mg/dL (70-99) Results All relevant outside records, renal labs, imaging studies, telemetry/EKG's were reviewed. Justicifation of Admission Dx: Justifications for Admission: Justification of Admission Dx: Yes BELKYS HERNANDEZ MD Mar 28, 2020 13:01
[2020-03-28 15:00] VITALS: BP 132/86
[2020-03-28] MEDS: oxyCODONE/APAP 5/325 1 TAB TABLET PO PRN (15:30)
[2020-03-28 15:36] VITALS: BP 170/76
--- NOTE | 2020-03-29 16:37 | PDOC3 ---
[facility]-Discharge Summary Date of Admission: Date of Admission: Mar 24, 2020 Date of Discharge: Date of Discharge: Mar 28, 2020 Admission Diagnosis: Admitting Diagnosis: Hypertensive urgency Normocytic anemia due to iron deficiency versus menorrhagia, possible fibroids? Acute electrolyte abnormalityhyponatremia, hyperkalemia with no acute EKG changes KASEY due to vasomotor nephropathy unclear chronic kidney disease Elevated BNP Severe protein malnutrition History of diabetes mellitus insulin-dependent Hyperglycemia uncontrolled Discharge Diagnosis: Discharge Diagnosis: Hypertensive urgency Normocytic anemia due to iron deficiency versus menorrhagia, requiring 1 unit PRBC Acute electrolyte abnormalityhyponatremia, hyperkalemia with no acute EKG changes KASEY due to vasomotor nephropathy unclear chronic kidney disease lobulated appearance of the cortex of the bilateral kidneys with focal thickening on the right. This could be secondary to some prominent cortical tissue within the area but there is no comparison Elevated BNP Severe protein malnutrition History of diabetes mellitus insulin-dependent Hyperglycemia uncontrolled Consults: Consults: NEphro Gynecology Hospital Course: Hospital Course: 45 year old Wolof-speaking female with history of diabetes type 2, hypertension, who presents to the ED today complaining of high blood pressure and left upper extremity pain. Patient states this morning she went to see her doctor and she was told her blood pressure systolic was in the 200s and sent to the ED to be evaluated. Patient states she was complaining of left arm pain and chills when she went to see the doctor. Denies any chest pain. Denies any injury. Denies any shortness of breath. She is also stating she had left eye surgery roughly 2 weeks ago and the left eye is still dilated. Patient is comp liant with all her medications and she did not miss any of her lisinopril dose. Of note, patient also states that she has been having heavy menstrual bleeding in the past 3 months. She states that she was seen by her joint yarner and they recommended possible surgery. Admitted for 1 u PRBC due to lower Hb the next day. She was seen by gynecology and she ultimately underwent an D&C ablation and tolerated the procedure well without complications and her Hb remained stable. She was also seen by Nephro and she will be followed as an outpt. Renal US was unrevealing and CT did not show any lesion. She will DC'd with amlodipine and lisinopril for her HTN and renal protection. The rest of her hospital course was uneventful Disposition: Disposition/Orders: D/C to Home Activity: Activity: Resume previous activity Diet: Diet: Renal Medications: Home Meds Active Scripts Lisinopril (LISINOPRIL) 40 Mg Tablet, 20 MG PO QHS for htn for 30 Days, #15 TAB Prov:DAMASO YO MD 03/28/20 Amlodipine Besylate (AMLODIPINE BESYLATE) 10 Mg Tablet, 10 MG PO QHS for htn for 30 Days, #30 TAB Prov:DAMASO YO MD 03/28/20 Medroxyprogesterone Acetate (MEDROXYPROGESTERONE ACETATE) 2.5 Mg Tablet, 5 MG PO DAILY for menorrhagia for 30 Days, #60 TAB Prov:DAMASO YO MD 03/28/20 Reported Medications Insulin Detemir (Levemir Flextouch) 100 Unit/1 Ml Insuln.pen, 30 UNIT SQ [id number] for Diabetes, SYR 03/25/20 Insulin Detemir (Levemir Flextouch) 100 Unit/1 Ml Insuln.pen, 40 UNIT SQ HS for diabetes, SYR 03/25/20 Scheduled Amlodipine Besylate (Amlodipine Besylate), 10 MG PO QHS Insulin Detemir (Levemir Flextouch), 40 UNIT SQ HS, (Reported) Insulin Detemir (Levemir Flextouch), 30 UNIT SQ [id number], (Reported) Lisinopril (Lisinopril), 20 MG PO QHS Medroxyprogesterone Acetate (Medroxyprogesterone Acetate), 5 MG PO DAILY Total Time: Total Time: Total time spent was 35 minutes in preparing scripts, discharge planning with SW and RN, and preparing this discharge summary. Patient seen and examined on day of discharge. Justicifation of Admission Dx: Justifications for Admission: Justification of Admission Dx: Yes DAMASO YO MD Mar 29, 2020 16:37
== END 2020-03-28 17:45 | disposition home health service (06) | DRG 744 ==
LOC: ER 11:59 → ED HOLD 15:39 → 5 NORTH 20:09
PROVIDERS: ADMIT Internal Medicine; ATTEND Internal Medicine
PROC: 30233N1 Transfusion of Nonautologous Red Blood Cells into Peripheral Vein, Percutaneous Approach (ICD-10-PCS; 2020-03-26)
PROC: 0UDB8ZZ Extraction of Endometrium, Via Natural or Artificial Opening Endoscopic (ICD-10-PCS; principal; 2020-03-27 09:45)
DX: N92.0 Excessive and frequent menstruation with regular cycle (principal); N17.0 Acute kidney failure with tubular necrosis; E43 Unspecified severe protein-calorie malnutrition; N18.6 End stage renal disease; E87.1 Hypo-osmolality and hyponatremia; N39.0 Urinary tract infection, site not specified; I12.0 Hypertensive chronic kidney disease with stage 5 chronic kidney disease or end stage renal disease; I16.0 Hypertensive urgency; D64.9 Anemia, unspecified; E11.22 Type 2 diabetes mellitus with diabetic chronic kidney disease; E11.65 Type 2 diabetes mellitus with hyperglycemia; E87.5 Hyperkalemia; O24.92 Unspecified diabetes mellitus in childbirth; Z79.4 Long term (current) use of insulin; Z90.710 Acquired absence of both cervix and uterus; E87.8 Other disorders of electrolyte and fluid balance, not elsewhere classified; Z20.828 Contact with and (suspected) exposure to other viral communicable diseases
CPT/HCPCS: 36415; 70450; 71045; 74176; 76770; 76830; 76856; 80048; 80053; 80307; 81001; 81025; 82962; 83735; 83880; 84100; 84443; 84484; 85007; 85014; 85018; 85025; 85610; 86850; 86900; 86901; 86920; 87426; 96361; 96374; 99285; J0696; J1100; J1644; J1815; J1885; J1940; J2405; J2704; J3010; J3490; J7030; J7120; P9016; 97116-GP; 97535-GO; G0378; U0003-CS

== ENCOUNTER 2020-04-16 10:47 | Inpatient (IN) | payer BC ==
[~2020-04-16] VITALS: Ht 165.1 cm; Wt 90.0 kg
[~2020-04-16 10:47] MED LIST: AMLO-187 PO; INSU100I27 SQ; LISI-130 PO; MEDR2.5T28 PO
[2020-04-16 11:24] LABS: BILIRUBIN,URINE NEGATIVE (NEG); CLARITY,URINE CLEAR; COLOR,URINE YELLOW; NITRITE,URINE NEGATIVE (NEG); PROTEIN,URINE >=300 mg/dL (NEG-TRACE)
[2020-04-16] MEDS ORDERED: IV NORMAL SALINE 1000ML BAG 1,000 ML IV ONE (11:30)
[2020-04-16] MEDS ORDERED: ONDANSETRON PF 4 MG/2 ML VIAL. IV ONE (11:30)
[2020-04-16 11:38] LABS: BACTERIA,URINE FEW /HPF (0-FEW); RBC,URINE TNTC /HPF (0-2); WBC,URINE 0 /HPF (0-4)
--- NOTE | 2020-04-16 11:55 | ED.ADGEN ---
Past Medical History Past Medical History: Diabetes-Type II, Hypertension Past Surgical History: Other Additional Past Surgical Histo: EYE SURGERY, uterine Smoking Status: Never Smoker Alcohol Use: None General Adult EDM: Chief Complaint: NAUSEA/VOMITING/DIARRHA HPI: HPI: Patient is a 45 year old female, who presents to the emergency room with complaints of nausea, vomiting, chills, and lower abdominal pain that began 4 days ago. She denies any known Covid exposure. She denies any diarrhea, cough, shortness of breath, chest pain, dysuria, hematuria, vaginal bleeding, or back pain. Patient reports she has had some increased urinary frequency. She states that she had a uterine ablation 2 weeks ago at this facility. She denies any irregular vaginal discharge or bleeding. Patient denies any blood in her emesis. She currently rates her discomfort a 2 out of 10 on the pain scale, she denies any alleviating or exacerbating factors. The patient reports a history of type 2 diabetes, endometriosis, and hypertension.. Review of Systems: Review of Systems: Complete ROS is negative unless otherwise noted in HPI. Current Medications: Current Medications Medications (Trade) Dose Ordered Sig/Richar Start Time Stop Time Status Last Admin Dose Admin Fentanyl Citrate (Fentanyl 2ml Vial) 50 mcg 1X ONCE 04/16/20 14:15 04/16/20 14:16 DC 04/16/20 14:24 50 MCG Lorazepam (Ativan Inj) 1 mg 1X ONCE 04/16/20 15:00 04/16/20 15:01 DC 04/16/20 15:22 1 MG Ondansetron HCl (Zofran) 4 mg 1X ONCE 04/16/20 11:30 04/16/20 11:31 DC 04/16/20 11:55 4 MG Sodium Chloride 1,000 ml @ 1,000 mls/hr 1X ONCE 04/16/20 11:30 04/16/20 12:29 DC 04/16/20 11:55 1,000 MLS/HR Allergies: Allergies: Allergies Coded Allergies Type Severity Reaction Last Updated Verified No Known Drug Allergies 03/24/20 No Physical Exam: PE: See Above Constitutional: Well developed, well nourished, no acute distress, non-toxic appearance, obese. [] HENT: Normocephalic, atraumatic, bilateral external ears normal, nose normal. [] Eyes: PERRLA, EOMI, conjunctiva normal, no discharge. [] Neck: Normal range of motion, no stridor. [] Cardiovascular:Heart rate regular rhythm Lungs & Thorax: Respirations even and unlabored, no retractions, no respiratory distress, lungs CTA Abdomen: soft, right lower quadrant and suprapubic tenderness to palpation, no rebound tenderness, no guarding, no palpable mass, negative psoas sign, positive Rovsing's sign, negative obturator sign Back: Nontender, no CVA tenderness Skin: Warm, dry, no erythema, no rash. [] Extremities: No cyanosis, ROM intact, no edema. [] Neurologic: Alert and oriented X 3, no focal deficits noted. [] Psychologic: Affect normal, judgement normal, mood normal. [] Current Patient Data: Labs: Laboratory Tests Test 04/16/20 11:00 04/16/20 11:02 04/16/20 11:30 Urine Collection Type Unknown Urine Color Yellow Urine Clarity Clear Urine pH 6.0 (<5.0-8.0) Urine Specific [place] 1.015 (1.000-1.030) Urine Protein >=300 mg/dL (NEG-TRACE) Urine Glucose (UA) 100 mg/dL (NEG) Urine Ketones (Stick) Negative mg/dL (NEG) Urine Blood Large (NEG) Urine Nitrite Negative (NEG) Urine Bilirubin Negative (NEG) Urine Urobilinogen Dipstick 1.0 mg/dL (0.2 mg/dL) Urine Leukocyte Esterase Trace (NEG) Urine RBC Tntc /HPF (0-2) Urine WBC 0 /HPF (0-4) Urine Squamous Epithelial Cells Many /LPF Urine Bacteria Few /HPF (0-FEW) POC Urine HCG, Qualitative Hcg negative (Negative) White Blood Count 12.0 x10^3/uL (4.0-11.0) H Red Blood Count 2.61 x10^6/uL (3.50-5.40) L Hemoglobin 7.6 g/dL (12.0-15.5) L Hematocrit 22.7 % (36.0-47.0) L Mean Corpuscular Volume 87 fL (79-100) Mean Corpuscular Hemoglobin 29 pg (25-35) Mean Corpuscular Hemoglobin Concent 34 g/dL (31-37) Red Cell Distribution Width 15.0 % (11.5-14.5) H Platelet Count 223 x10^3/uL (140-400) Neutrophils (%) (Auto) 84 % (31-73) H Lymphocytes (%) (Auto) 8 % (24-48) L Monocytes (%) (Auto) 8 % (0-9) Eosinophils (%) (Auto) 0 % (0-3) Basophils (%) (Auto) 0 % (0-3) Neutrophils # (Auto) 10.0 x10^3/uL (1.8-7.7) H Lymphocytes # (Auto) 0.9 x10^3/uL (1.0-4.8) L Monocytes # (Auto) 0.9 x10^3/uL (0.0-1.1) Eosinophils # (Auto) 0.0 x10^3/uL (0.0-0.7) Basophils # (Auto) 0.1 x10^3/uL (0.0-0.2) Sodium Level 133 mmol/L (136-145) L Potassium Level 4.5 mmol/L (3.5-5.1) Chloride Level 103 mmol/L (98-107) Carbon Dioxide Level 17 mmol/L (21-32) L Anion Gap 13 (6-14) Blood Urea Nitrogen 32 mg/dL (7-20) H Creatinine 2.3 mg/dL (0.6-1.0) H Estimated GFR (Cockcroft-Gault) 22.7 BUN/Creatinine Ratio 14 (6-20) Glucose Level 91 mg/dL (70-99) Calcium Level 8.4 mg/dL (8.5-10.1) L Magnesium Level 2.4 mg/dL (1.8-2.4) Total Bilirubin 0.2 mg/dL (0.2-1.0) Aspartate Amino Transferase (AST) 12 U/L (15-37) L Alanine Aminotransferase (ALT) 19 U/L (14-59) Alkaline Phosphatase 121 U/L (46-116) H Total Protein 6.3 g/dL (6.4-8.2) L Albumin 2.1 g/dL (3.4-5.0) L Albumin/Globulin Ratio 0.5 (1.0-1.7) L Lipase 77 U/L (73-393) Laboratory Tests 11/11/20 11:30 Laboratory Tests 04/16/20 11:30 Vital Signs: Vital Signs Date Time Temp Pulse Resp B/P (MAP) Pulse Ox O2 Delivery O2 Flow Rate FiO2 04/16/20 11:10 99.3 82 18 126/61 (82) 98 Room Air 99.3 EKG: EKG: [] Heart Score: Risk Factors: Risk Factors: DM, Current or recent (<one month) smoker, HTN, HLP, family history of CAD, obesity. Risk Scores: Score 0 - 3: 2.5% MACE over next 6 weeks - Discharge Home Score 4 - 6: 20.3% MACE over next 6 weeks - Admit for Clinical Observation Score 7 - 10: 72.7% MACE over next 6 weeks - Early Invasive Strategies Radiology/Procedures: Radiology/Procedures: PROCEDURE: PELVIS ULTRASOUND Pelvic ultrasound dated 04/16/2020. No comparison available. Clinical data indication: Right lower quadrant pain. FINDINGS: Transabdominal imaging was performed. Uterus measures 9.6 x 5.0 x 4.4 cm. No focal uterine mass. Endometrial complex is normal in thickness for age measuring 7.7 mm. Right ovary measures 3.1 x 1.5 x 1.4 cm. Left ovary measures 2.8 x 1.2 x 1.2 cm. Normal color Doppler flow to both ovaries. No adnexal mass or free fluid. There is a tubular focus in the right lower quadrant that measures about 1.3 cm thickness however no definite wall thickening in the region. No hyperemia. Urinary bladder unremarkable. IMPRESSION: 1. No acute sonographic abnormality. 2. There is a tubular structure in the right lower quadrant that measures about 1.3 cm, however there is no significant wall thickening or hyperemia. This could represent a nondilated small bowel loop or an enlarged appendix. Correlate clinically. If indicated, CT could better evaluate. [] Course & Med Decision Making: Course & Med Decision Making Pertinent Labs and Imaging studies reviewed. (See chart for details) 1615-while at the bedside to reevaluate the patient patient states she still does not feel well. Her temperature is 99.4 at this time. Vital signs are stable. Patient states that she is actually been vomiting every day for the last 2 weeks ever since being discharged after her uterine ablation. 1713-spoke with Dr. Quigley who is the admitting physician, and care was assumed following discussion of patient. Will admit patient for anemia and intractable nausea vomiting. Patient's vital signs stable. Patient remains afebrile, appears nontoxic, respirations even and unlabored. Patient will be admitted to the [facility] d[facility]surgical floor. Patient's case and plan of care also discussed with Dr. Villanueva I have reviewed the PA/POWER LINEWORKER's note and Plan of Care. I was available for consultation as needed during the patient's visit in the emergency department. I agree with the clinical impression, plans and disposition. [] Dragon Disclaimer: Dragon Disclaimer: This electronic medical record was generated, in whole or in part, using a voice recognition dictation system. Departure Departure Impression: Primary Impression: Nausea & vomiting Condition: STABLE Referrals: UNKNOWN PCP NAME (PCP) JERI MILTON APRN Apr 16, 2020 11:55 NICK VILLANUEVA MD Apr 17, 2020 06:09
[2020-04-16 11:59] LABS: BASO # 0.1 x10^3/uL (0.0-0.2); BASO % 0 % (0-3); EOS % 0 % (0-3); HEMATOCRIT 22.7 % (36.0-47.0); HEMOGLOBIN 7.6 g/dL (12.0-15.5); LYMPH # 0.9 x10^3/uL (1.0-4.8); LYMPH % 8 % (24-48); MEAN CORPUSCULAR HEMOGLOBIN 29 pg (25-35); MEAN CORPUSCULAR HGB CONC 34 g/dL (31-37); MEAN CORPUSCULAR VOLUME 87 fL (79-100); MONO # 0.9 x10^3/uL (0.0-1.1); MONO % 8 % (0-9); NEUT % 84 % (31-73); PLATELET COUNT 223 x10^3/uL (140-400); RED BLOOD COUNT 2.61 x10^6/uL (3.50-5.40)
[2020-04-16 12:02] LABS: CALCIUM 8.4 mg/dL (8.5-10.1); CREATININE 2.3 mg/dL (0.6-1.0); GFR 22.7; POTASSIUM 4.5 mmol/L (3.5-5.1)
[2020-04-16 12:08] LABS: ALBUMIN 2.1 g/dL (3.4-5.0); ALBUMIN/GLOBULIN RATIO 0.5 (1.0-1.7); MAGNESIUM 2.4 mg/dL (1.8-2.4); TOTAL BILIRUBIN 0.2 mg/dL (0.2-1.0); TOTAL PROTEIN 6.3 g/dL (6.4-8.2)
[2020-04-16] MEDS ORDERED: fentaNYL PF VIAL 100 MCG/2 ML VIAL IV ONE (14:15)
--- NOTE | 2020-04-16 14:51 | RAD ---
Pelvic ultrasound dated 04/16/2020. No comparison available. Clinical data indication: Right lower quadrant pain. FINDINGS: Transabdominal imaging was performed. Uterus measures 9.6 x 5.0 x 4.4 cm. No focal uterine mass. Endometrial complex is normal in thickness for age measuring 7.7 mm. Right ovary measures 3.1 x 1.5 x 1.4 cm. Left ovary measures 2.8 x 1.2 x 1.2 cm. Normal color Doppler flow to both ovaries. No adnexal mass or free fluid. There is a tubular focus in the right lower quadrant that measures about 1.3 cm thickness however no definite wall thickening in the region. No hyperemia. Urinary bladder unremarkable. IMPRESSION: 1. No acute sonographic abnormality. 2. There is a tubular structure in the right lower quadrant that measures about 1.3 cm, however there is no significant wall thickening or hyperemia. This could represent a nondilated small bowel loop or an enlarged appendix. Correlate clinically. If indicated, CT could better evaluate. Electronically signed by: Ras Monzon MD (04/16/2020 2:48 PM) [id number]
--- NOTE | 2020-04-16 16:08 | RAD ---
EXAM: CT Abdomen and Pelvis without IV contrast INDICATION: Reason: rlq abd pain / Spl. Instructions: / History: TECHNIQUE: Multi-detector row CT images were acquired from the lung bases through the abdomen and pelvis without the use of IV contrast. Sagittal and coronal images were acquired from the transaxial data. All CT scans performed at this facility utilize dose optimization techniques as appropriate to the exam, including the following: Automated exposure control and adjustment of the mA and/or KV according to patient size (this includes techniques or standardized protocols for targeted exams where dose is indication/reason for exam). ORAL CONTRAST: None COMPARISON: 03/26/[address] without IV contrast FINDINGS: The absence of IV contrast limits evaluation of soft tissue pathology. LOWER CHEST: Unremarkable LIVER: Unremarkable BILIARY SYSTEM: Gallbladder is unremarkable. Bile ducts are not dilated. PANCREAS: Unremarkable SPLEEN: Unremarkable ADRENALS: Unremarkable KIDNEYS & URETERS: Unremarkable BLADDER: Unremarkable REPRODUCTIVE ORGANS: Vaginal tampon is present. GASTROINTESTINAL: The stomach, small bowel, and colon are unremarkable. The appendix is normal. MESENTERY/PERITONEUM/RETROPERITONEUM: Unremarkable VASCULAR: Unremarkable LYMPH NODES: No adenopathy OSSEOUS & SOFT TISSUES: Unremarkable IMPRESSION: Unremarkable CT of the abdomen and pelvis without contrast. Electronically signed by: Marcin Carrington MD (04/16/2020 4:06 PM) [id number]
--- NOTE | 2020-04-16 17:13 | PDOC1 ---
History and Physical Date of Admission Date of Admission DATE: 04/16/20 TIME: 17:13 Identification/Chief Complaint Chief Complaint Abdominal pain Source Source: Caregiver, Chart review, Patient History of Present Illness History of Present Illness Ms Shannon is a 45 year old female [place]-speaking only (rodeo clown utilized) w/ PMHx HTN, DM2 who presents to the emergency room with complaints of nausea, vomiting, chills, and lower abdominal pain that began 4 days prior to arrival in ED. She is accompanied by her significant other. She denies any known Covid exposure. She denies any diarrhea, cough, shortness of breath, chest pain, dysuria, hematuria, vaginal bleeding, or back pain. However, she coughs frequently during examination. She also asks for food during examination despite her c/o vomiting. She also notably has blood stain on her undergarments, though denies vaginal bleeding to the veneer clipper helper. Does have urinary frequency. She was recently admitted 2 weeks ago for endometrial ablation. On TVUS no mass seen, however dilated bowel loops noted, therefore a CT abdomen/pelvis was performed showing no acute abnormality. Tampon visible in vagina on scan. Labs significant for Past Medical History Cardiovascular: HTN Endocrine: Diabetes Past Surgical History Past Surgical History: Other (endometrial ablation) Family History Family History: Diabetes, High Cholestrol, Hypertension Social History Smoke: No ALCOHOL: none Drugs: None Current Medications Current Medications Current Medications Sodium Chloride 1,000 ml @ 1,000 mls/hr 1X ONCE IV Last administered on 04/16/20at 11:55; Start 04/16/20 at 11:30; Stop 04/16/20 at 12:29; Status DC Ondansetron HCl (Zofran) 4 mg 1X ONCE IV Last administered on 04/16/20at 11:55; Start 04/16/20 at 11:30; Stop 04/16/20 at 11:31; Status DC Fentanyl Citrate (Fentanyl 2ml Vial) 50 mcg 1X ONCE IV Last administered on 04/16/20at 14:24; Start 04/16/20 at 14:15; Stop 04/16/20 at 14:16; Status DC Lorazepam (Ativan Inj) 1 mg 1X ONCE IV Last administered on 04/16/20at 15:22; Start 04/16/20 at 15:00; Stop 04/16/20 at 15:01; Status DC Active Scripts Active Lisinopril 40 Mg Tablet 20 Mg PO QHS 30 Days Amlodipine Besylate 10 Mg Tablet 10 Mg PO QHS 30 Days Medroxyprogesterone Acetate 2.5 Mg Tablet 5 Mg PO DAILY 30 Days Reported Levemir Flextouch (Insulin Detemir) 100 Unit/1 Ml Insuln.pen 30 Unit SQ [id number] Levemir Flextouch (Insulin Detemir) 100 Unit/1 Ml Insuln.pen 40 Unit SQ HS Allergies Allergies: Coded Allergies: No Known Drug Allergies (Unverified , 03/24/20) ROS General: YES: Chills, Night Sweats, Fatigue, Malaise, Appetite; No: Other PSYCHOLOGICAL ROS: No: Anxiety, Behavioral Disorder, Concentration difficultie, Decreased libido, Depression, Disorientation, Hallucinations, Hostility, Irritablity, Memory difficulties, Mood Swings, Obsessive thoughts, Physical abuse, Sexual abuse, Sleep disturbances, Suicidal ideation, Other Eyes: No Blurry vision, No Decreased vision, No Double vision, No Dry eyes, No Excessive tearing, No Eye Pain, No Itchy Eyes, No Loss of vision, No Photophobia, No Scotomata, No Uses contacts, No Uses glasses, No Other HEENT: No: Heacaches, Visual Changes, Hearing change, Nasal congestion, Nasal discharge, Oral lesions, Sinus pain, Sore Throat, Epistaxis, Sneezing, Snoring, Tinnitus, Vertigo, Vocal changes, Other ALLERGY AND IMMUNOLOGY: No: Hives, Insect Bite Sensitivity, Itchy/Watery Eyes, Nasal Congestion, Post Nasal Drip, Seasonal Allergies, Other Hematological and Lymphatic: YES: Bleeding Problems; No: Blood Clots, Blood Transfusions, Brusing, Night Sweats, Pallor, Swollen Lymph Nodes, Other ENDOCRINE: No: Breast Changes, Galactorrhea, Hair Pattern Changes, Hot Flashes, Malaise/lethargy, Mood Swings, Palpitations, Polydipsia/polyuria, Skin Changes, Temperature Intolerance, Unexpected Weight Changes, Other Breast: No New/Changing Breast Lumps, No Nipple changes, No Nipple discharge, No Other Respiratory: YES: Cough; No: Hemoptysis, Orthopnea, Pleuritic Pain, Shortness of breath, SOB with excertion, Sputum Changes, Stridor, Tachypnea, Wheezing, Other Cardiovascular: No Chest Pain, No Palpitations, No Orthopnea, No Paroxysmal Noc. Dyspnea, No Edema, No Lt Headedness, No Other Gastrointestinal: Yes Nausea, Yes Vomiting, Yes Abdominal Pain Genitourinary: YES Frequency; No Dysuria, No Incontinence, No Hematuria, No Retention, No Discharge, No Urgency, No Pain, No Flank Pain, No Other, No , No , No , No , No , No , No Musculoskeletal: No Gait Disturbance, No Joint Pain, No Joint Stiffness, No Joint Swelling, No Muscle Pain, No Muscular Weakness, No Pain In:, No Swelling In:, No Other Neurological: No Behavorial Changes, No Bowel/Bladder ControlChng, No Confusion, No Dizziness, No Gait Disturbance, No Headaches, No Impaired Coord/balance, No Memory Loss, No Numbness/Tingling, No Seizures, No Speech Problems, No Tremors, No Visual Changes, No Weakness, No Other Skin: No Dry Skin, No Eczema, No Hair Changes, No Lumps, No Mole Changes, No Mottling, No Nail Changes, No Pruritus, No Rash, No Skin Lesion Changes, No Other, No Acne Physical Exam General: Alert, Oriented X3, Cooperative, moderate distress, Other (pale, diaphoretic) HEENT: Atraumatic, PERRLA, EOMI, Mucous membr. moist/pink Lungs: Other (scattered wheezing) Heart: S1S2, RRR, no thrills, no rubs, no gallops, no murmurs Abdomen: Normal bowel sounds, Soft, No hepatosplenomegaly, No masses, Other (epigastric pain) Rectal Exam: not examined Extremities: No clubbing, No cyanosis, No edema, Normal pulses, No tenderness/swelling Skin: No rashes, No breakdown, No significant lesion Neuro: Normal gait, Normal speech, Strength at 5/5 X4 ext, Normal tone, Sensation intact, Cranial nerves 3-12 NL, Reflexes 2+ Psych/Mental Status: Mental status NL, Mood NL Vitals Vitals Vital Signs Date Time Temp Pulse Resp B/P (MAP) Pulse Ox O2 Delivery O2 Flow Rate FiO2 04/16/20 11:10 99.3 82 18 126/61 (82) 98 Room Air 99.3 Labs Labs Laboratory Tests Test 04/16/20 11:00 04/16/20 11:02 04/16/20 11:30 Urine Collection Type Unknown Urine Color Yellow Urine Clarity Clear Urine pH 6.0 (<5.0-8.0) Urine Specific [place] 1.015 (1.000-1.030) Urine Protein >=300 mg/dL (NEG-TRACE) Urine Glucose (UA) 100 mg/dL (NEG) Urine Ketones (Stick) Negative mg/dL (NEG) Urine Blood Large (NEG) Urine Nitrite Negative (NEG) Urine Bilirubin Negative (NEG) Urine Urobilinogen Dipstick 1.0 mg/dL (0.2 mg/dL) Urine Leukocyte Esterase Trace (NEG) Urine RBC Tntc /HPF (0-2) Urine WBC 0 /HPF (0-4) Urine Squamous Epithelial Cells Many /LPF Urine Bacteria Few /HPF (0-FEW) Bedside Urine HCG, Qualitative Hcg negative (Negative) White Blood Count 12.0 x10^3/uL (4.0-11.0) Red Blood Count 2.61 x10^6/uL (3.50-5.40) Hemoglobin 7.6 g/dL (12.0-15.5) Hematocrit 22.7 % (36.0-47.0) Mean Corpuscular Volume 87 fL (79-100) Mean Corpuscular Hemoglobin 29 pg (25-35) Mean Corpuscular Hemoglobin Concent 34 g/dL (31-37) Red Cell Distribution Width 15.0 % (11.5-14.5) Platelet Count 223 x10^3/uL (140-400) Neutrophils (%) (Auto) 84 % (31-73) Lymphocytes (%) (Auto) 8 % (24-48) Monocytes (%) (Auto) 8 % (0-9) Eosinophils (%) (Auto) 0 % (0-3) Basophils (%) (Auto) 0 % (0-3) Neutrophils # (Auto) 10.0 x10^3/uL (1.8-7.7) Lymphocytes # (Auto) 0.9 x10^3/uL (1.0-4.8) Monocytes # (Auto) 0.9 x10^3/uL (0.0-1.1) Eosinophils # (Auto) 0.0 x10^3/uL (0.0-0.7) Basophils # (Auto) 0.1 x10^3/uL (0.0-0.2) Sodium Level 133 mmol/L (136-145) Potassium Level 4.5 mmol/L (3.5-5.1) Chloride Level 103 mmol/L (98-107) Carbon Dioxide Level 17 mmol/L (21-32) Anion Gap 13 (6-14) Blood Urea Nitrogen 32 mg/dL (7-20) Creatinine 2.3 mg/dL (0.6-1.0) Estimated GFR (Cockcroft-Gault) 22.7 BUN/Creatinine Ratio 14 (6-20) Glucose Level 91 mg/dL (70-99) Calcium Level 8.4 mg/dL (8.5-10.1) Magnesium Level 2.4 mg/dL (1.8-2.4) Total Bilirubin 0.2 mg/dL (0.2-1.0) Aspartate Amino Transf (AST/SGOT) 12 U/L (15-37) Alanine Aminotransferase (ALT/SGPT) 19 U/L (14-59) Alkaline Phosphatase 121 U/L (46-116) Total Protein 6.3 g/dL (6.4-8.2) Albumin 2.1 g/dL (3.4-5.0) Albumin/Globulin Ratio 0.5 (1.0-1.7) Lipase 77 U/L (73-393) Laboratory Tests Test 04/16/20 11:00 04/16/20 11:02 04/16/20 11:30 Urine Collection Type Unknown Urine Color Yellow Urine Clarity Clear Urine pH 6.0 (<5.0-8.0) Urine Specific [place] 1.015 (1.000-1.030) Urine Protein >=300 mg/dL (NEG-TRACE) Urine Glucose (UA) 100 mg/dL (NEG) Urine Ketones (Stick) Negative mg/dL (NEG) Urine Blood Large (NEG) Urine Nitrite Negative (NEG) Urine Bilirubin Negative (NEG) Urine Urobilinogen Dipstick 1.0 mg/dL (0.2 mg/dL) Urine Leukocyte Esterase Trace (NEG) Urine RBC Tntc /HPF (0-2) Urine WBC 0 /HPF (0-4) Urine Squamous Epithelial Cells Many /LPF Urine Bacteria Few /HPF (0-FEW) Bedside Urine HCG, Qualitative Hcg negative (Negative) White Blood Count 12.0 x10^3/uL (4.0-11.0) Red Blood Count 2.61 x10^6/uL (3.50-5.40) Hemoglobin 7.6 g/dL (12.0-15.5) Hematocrit 22.7 % (36.0-47.0) Mean Corpuscular Volume 87 fL (79-100) Mean Corpuscular Hemoglobin 29 pg (25-35) Mean Corpuscular Hemoglobin Concent 34 g/dL (31-37) Red Cell Distribution Width 15.0 % (11.5-14.5) Platelet Count 223 x10^3/uL (140-400) Neutrophils (%) (Auto) 84 % (31-73) Lymphocytes (%) (Auto) 8 % (24-48) Monocytes (%) (Auto) 8 % (0-9) Eosinophils (%) (Auto) 0 % (0-3) Basophils (%) (Auto) 0 % (0-3) Neutrophils # (Auto) 10.0 x10^3/uL (1.8-7.7) Lymphocytes # (Auto) 0.9 x10^3/uL (1.0-4.8) Monocytes # (Auto) 0.9 x10^3/uL (0.0-1.1) Eosinophils # (Auto) 0.0 x10^3/uL (0.0-0.7) Basophils # (Auto) 0.1 x10^3/uL (0.0-0.2) Sodium Level 133 mmol/L (136-145) Potassium Level 4.5 mmol/L (3.5-5.1) Chloride Level 103 mmol/L (98-107) Carbon Dioxide Level 17 mmol/L (21-32) Anion Gap 13 (6-14) Blood Urea Nitrogen 32 mg/dL (7-20) Creatinine 2.3 mg/dL (0.6-1.0) Estimated GFR (Cockcroft-Gault) 22.7 BUN/Creatinine Ratio 14 (6-20) Glucose Level 91 mg/dL (70-99) Calcium Level 8.4 mg/dL (8.5-10.1) Magnesium Level 2.4 mg/dL (1.8-2.4) Total Bilirubin 0.2 mg/dL (0.2-1.0) Aspartate Amino Transf (AST/SGOT) 12 U/L (15-37) Alanine Aminotransferase (ALT/SGPT) 19 U/L (14-59) Alkaline Phosphatase 121 U/L (46-116) Total Protein 6.3 g/dL (6.4-8.2) Albumin 2.1 g/dL (3.4-5.0) Albumin/Globulin Ratio 0.5 (1.0-1.7) Lipase 77 U/L (73-393) Images Images PELVIS ULTRASOUND Transabdominal imaging was performed. Uterus measures 9.6 x 5.0 x 4.4 cm. No focal uterine mass. Endometrial complex is normal in thickness for age measuring 7.7 mm. Right ovary measures 3.1 x 1.5 x 1.4 cm. Left ovary measures 2.8 x 1.2 x 1.2 cm. Normal color Doppler flow to both ovaries. No adnexal mass or free fluid. There is a tubular focus in the right lower quadrant that measures about 1.3 cm thickness however no definite wall thickening in the region. No hyperemia. Urinary bladder unremarkable. IMPRESSION: 1. No acute sonographic abnormality. 2. There is a tubular structure in the right lower quadrant that measures about 1.3 cm, however there is no significant wall thickening or hyperemia. This could represent a nondilated small bowel loop or an enlarged appendix. Correlate clinically. If indicated, CT could better evaluate. CT abdomen/pelvis; LOWER CHEST: Unremarkable LIVER: Unremarkable BILIARY SYSTEM: Gallbladder is unremarkable. Bile ducts are not dilated. PANCREAS: Unremarkable SPLEEN: Unremarkable ADRENALS: Unremarkable KIDNEYS & URETERS: Unremarkable BLADDER: Unremarkable REPRODUCTIVE ORGANS: Vaginal tampon is present. GASTROINTESTINAL: The stomach, small bowel, and colon are unremarkable. The appendix is normal. MESENTERY/PERITONEUM/RETROPERITONEUM: Unremarkable VASCULAR: Unremarkable LYMPH NODES: No adenopathy OSSEOUS & SOFT TISSUES: Unremarkable IMPRESSION: Unremarkable CT of the abdomen and pelvis without contrast. VTE Prophylaxis Ordered VTE Prophylaxis Devices: Yes VTE Pharmacological Prophylaxi: Yes Assessment/Plan Assessment/Plan A/P: Intractable nausea and vomiting - improved with IV antiemetics, will monitor Abdominal pain - no clear etiology, likely from UTI with hematuria and leukocyte esterase positive Acute anemia - with resolution of her vaginal bleeding, possible secondary source is GI losses Hyponatremia - likely hypovolemic from poor PO intake, vomiting, will replace IVF KASEY due to vasomotor nephropathy unclear chronic kidney disease Severe protein calorie malnutrition - will try to advance diet as soon as feasible Diabetes mellitus insulin-dependent - sliding scale HTN - cont home meds Sepsis - with leukocytosis, UTI, will cont empiric antibiotics. Cough - check COVID 19 FEN - NPO, can advance to clears if no longer vomiting PPX - heparin FULL CODE Dispo - inpatient Justifications for Admission Other Justification HTN Urgency ROSSY VELARDE MD Apr 16, 2020 17:13
[2020-04-16 19:53] VITALS: BP 147/66
[2020-04-16] MEDS ORDERED: GLIP5TAB10 PO (19:58)
[2020-04-16] MEDS ORDERED: ZOLPIDEM 5 MG TABLET. PO PRN (22:00)
[2020-04-16] MEDS ORDERED: DOCUSATE SODIUM 100 MG CAPSULE. PO PRN (22:00)
[2020-04-16] MEDS ORDERED: ACETAMINOPHEN 325 MG TABLET. PO PRN (22:00)
[2020-04-16] MEDS ORDERED: guaiFENesin ORAL 200 MG/10 ML LIQUID. PO PRN (22:00)
[2020-04-16] MEDS: cefTRIAXone IV Push 1 GM VIAL. IVP SCH (23:26)
[2020-04-16] MEDS: amLODIPine BESYLATE 10 MG TABLET PO SCH (23:27)
[2020-04-16] MEDS: INSULIN GLARGINE SYRINGE. SQ SCH (23:27)
[2020-04-16 23:30] VITALS: BP 163/81
[2020-04-17 03:46] VITALS: BP 130/64
[2020-04-17 04:57] LABS: BASO % 0 % (0-3); EOS # 0.2 x10^3/uL (0.0-0.7); EOS % 2 % (0-3); HEMATOCRIT 23.2 % (36.0-47.0); HEMOGLOBIN 7.9 g/dL (12.0-15.5); LYMPH % 11 % (24-48); MEAN CORPUSCULAR HEMOGLOBIN 30 pg (25-35); MEAN CORPUSCULAR HGB CONC 34 g/dL (31-37); MEAN CORPUSCULAR VOLUME 88 fL (79-100); MONO # 0.9 x10^3/uL (0.0-1.1); MONO % 10 % (0-9); NEUT # 7.5 x10^3/uL (1.8-7.7); NEUT % 78 % (31-73); PLATELET COUNT 222 x10^3/uL (140-400); RED BLOOD COUNT 2.64 x10^6/uL (3.50-5.40); RED CELL DISTRIBUTION WIDTH 14.9 % (11.5-14.5); WHITE BLOOD COUNT 9.6 x10^3/uL (4.0-11.0)
[2020-04-17 05:41] LABS: CALCIUM 8.5 mg/dL (8.5-10.1); GFR 26.7; POTASSIUM 4.2 mmol/L (3.5-5.1)
[2020-04-17 07:00] VITALS: BP 131/62
--- NOTE | 2020-04-17 08:12 | PDOC ---
[facility] [facility] PROGRESS NOTE Date of Service DOS: DATE: 04/17/20 TIME: 08:09 Chief Complaint Chief Complaint A/P: Intractable nausea and vomiting - improved with IV antiemetics, will monitor Abdominal pain - no clear etiology, likely from UTI with hematuria and leukocyte esterase positive Acute anemia - with resolution of her vaginal bleeding, possible secondary source is GI losses Hyponatremia - likely hypovolemic from poor PO intake, vomiting, will replace IVF KASEY due to vasomotor nephropathy unclear chronic kidney disease Severe protein calorie malnutrition - will try to advance diet as soon as feasible Diabetes mellitus insulin-dependent - sliding scale HTN - cont home meds Sepsis - with leukocytosis, UTI, will cont empiric antibiotics. Cough - check COVID 19 FEN - NPO, can advance to clears if no longer vomiting PPX - heparin FULL CODE Dispo - inpatient History of Present Illness History of Present Illness Ms Shannon is a 45 year old female Kinyarwanda-speaking only (site interpreter utilized) w/ PMHx HTN, DM2 who presents to the emergency room with complaints of nausea, vomiting, chills, and lower abdominal pain that began 4 days prior to arrival in ED. She is accompanied by her significant other. She denies any known Covid exposure. She denies any diarrhea, cough, shortness of breath, chest pain, dysuria, hematuria, vaginal bleeding, or back pain. However, she coughs frequently during examination. She also asks for food during examination despite her c/o vomiting. She also notably has blood stain on her undergarments, though denies vaginal bleeding to the fiscal technician. Does have urinary frequency. She was recently admitted 2 weeks ago for endometrial ablation. On TVUS no mass seen, however dilated bowel loops noted, therefore a CT abdomen/pelvis was performed showing no acute abnormality. Tampon visible in vagina on scan. Labs significant for Na 133 Afebrile overnight. Labs improved. Still with pain, having multiple episodes of diarrhea. She notes that she does not use tampons. On vaginal examination nothing in the vaginal vault this possibly could be artifact. I have contacted FLUE LINING DIPPER to assist to examine Plan: Check c. diff. Cont IVF. Nausea control Vitals/I&O Vitals/I&O: Vital Signs Date Time Temp Pulse Resp B/P (MAP) Pulse Ox O2 Delivery O2 Flow Rate FiO2 04/17/20 03:46 97.6 92 18 130/64 (86) 96 Room Air 97.6 I & O 04/16/20 04/16/20 04/17/20 15:00 23:00 07:00 Intake Total 650 ml Balance 650 ml Physical Exam General: Alert, Oriented X3, Cooperative, moderate distress, Other (pale, diaphoretic) Abdomen: Normal bowel sounds, Soft, No hepatosplenomegaly, No masses, Other (epigastric pain) Extremities: No clubbing, No cyanosis, No edema, Normal pulses, No tenderness/swelling Skin: No rashes, No breakdown, No significant lesion Labs Labs: Laboratory Tests Test 04/16/20 11:00 04/16/20 11:02 04/16/20 11:30 04/16/20 20:26 Urine Collection Type Unknown Urine Color Yellow Urine Clarity Clear Urine pH 6.0 (<5.0-8.0) Urine Specific [place] 1.015 (1.000-1.030) Urine Protein >=300 mg/dL (NEG-TRACE) Urine Glucose (UA) 100 mg/dL (NEG) Urine Ketones (Stick) Negative mg/dL (NEG) Urine Blood Large (NEG) Urine Nitrite Negative (NEG) Urine Bilirubin Negative (NEG) Urine Urobilinogen Dipstick 1.0 mg/dL (0.2 mg/dL) Urine Leukocyte Esterase Trace (NEG) Urine RBC Tntc /HPF (0-2) Urine WBC 0 /HPF (0-4) Urine Squamous Epithelial Cells Many /LPF Urine Bacteria Few /HPF (0-FEW) Bedside Urine HCG, Qualitative Hcg negative (Negative) White Blood Count 12.0 x10^3/uL (4.0-11.0) Red Blood Count 2.61 x10^6/uL (3.50-5.40) Hemoglobin 7.6 g/dL (12.0-15.5) Hematocrit 22.7 % (36.0-47.0) Mean Corpuscular Volume 87 fL (79-100) Mean Corpuscular Hemoglobin 29 pg (25-35) Mean Corpuscular Hemoglobin Concent 34 g/dL (31-37) Red Cell Distribution Width 15.0 % (11.5-14.5) Platelet Count 223 x10^3/uL (140-400) Neutrophils (%) (Auto) 84 % (31-73) Lymphocytes (%) (Auto) 8 % (24-48) Monocytes (%) (Auto) 8 % (0-9) Eosinophils (%) (Auto) 0 % (0-3) Basophils (%) (Auto) 0 % (0-3) Neutrophils # (Auto) 10.0 x10^3/uL (1.8-7.7) Lymphocytes # (Auto) 0.9 x10^3/uL (1.0-4.8) Monocytes # (Auto) 0.9 x10^3/uL (0.0-1.1) Eosinophils # (Auto) 0.0 x10^3/uL (0.0-0.7) Basophils # (Auto) 0.1 x10^3/uL (0.0-0.2) Sodium Level 133 mmol/L (136-145) Potassium Level 4.5 mmol/L (3.5-5.1) Chloride Level 103 mmol/L (98-107) Carbon Dioxide Level 17 mmol/L (21-32) Anion Gap 13 (6-14) Blood Urea Nitrogen 32 mg/dL (7-20) Creatinine 2.3 mg/dL (0.6-1.0) Estimated GFR (Cockcroft-Gault) 22.7 BUN/Creatinine Ratio 14 (6-20) Glucose Level 91 mg/dL (70-99) Calcium Level 8.4 mg/dL (8.5-10.1) Magnesium Level 2.4 mg/dL (1.8-2.4) Total Bilirubin 0.2 mg/dL (0.2-1.0) Aspartate Amino Transf (AST/SGOT) 12 U/L (15-37) Alanine Aminotransferase (ALT/SGPT) 19 U/L (14-59) Alkaline Phosphatase 121 U/L (46-116) Total Protein 6.3 g/dL (6.4-8.2) Albumin 2.1 g/dL (3.4-5.0) Albumin/Globulin Ratio 0.5 (1.0-1.7) Lipase 77 U/L (73-393) Glucose (Fingerstick) 99 mg/dL (70-99) Test 04/17/20 03:50 White Blood Count 9.6 x10^3/uL (4.0-11.0) Red Blood Count 2.64 x10^6/uL (3.50-5.40) Hemoglobin 7.9 g/dL (12.0-15.5) Hematocrit 23.2 % (36.0-47.0) Mean Corpuscular Volume 88 fL (79-100) Mean Corpuscular Hemoglobin 30 pg (25-35) Mean Corpuscular Hemoglobin Concent 34 g/dL (31-37) Red Cell Distribution Width 14.9 % (11.5-14.5) Platelet Count 222 x10^3/uL (140-400) Neutrophils (%) (Auto) 78 % (31-73) Lymphocytes (%) (Auto) 11 % (24-48) Monocytes (%) (Auto) 10 % (0-9) Eosinophils (%) (Auto) 2 % (0-3) Basophils (%) (Auto) 0 % (0-3) Neutrophils # (Auto) 7.5 x10^3/uL (1.8-7.7) Lymphocytes # (Auto) 1.0 x10^3/uL (1.0-4.8) Monocytes # (Auto) 0.9 x10^3/uL (0.0-1.1) Eosinophils # (Auto) 0.2 x10^3/uL (0.0-0.7) Basophils # (Auto) 0.0 x10^3/uL (0.0-0.2) Sodium Level 138 mmol/L (136-145) Potassium Level 4.2 mmol/L (3.5-5.1) Chloride Level 107 mmol/L (98-107) Carbon Dioxide Level 15 mmol/L (21-32) Anion Gap 16 (6-14) Blood Urea Nitrogen 32 mg/dL (7-20) Creatinine 2.0 mg/dL (0.6-1.0) Estimated GFR (Cockcroft-Gault) 26.7 Glucose Level 102 mg/dL (70-99) Calcium Level 8.5 mg/dL (8.5-10.1) Assessment and Plan Assessmemt and Plan Problems Medical Problems: (1) Nausea & vomiting Status: Acute Comment Review of Relevant I have reviewed the following items fransisco (where applicable) has been applied. Medications: Current Medications Medications (Trade) Dose Ordered Sig/Richar Route PRN Reason Start Time Stop Time Status Last Admin Dose Admin Sodium Chloride 1,000 ml @ 1,000 mls/hr 1X ONCE IV 04/16/20 11:30 04/16/20 12:29 DC 04/16/20 11:55 Ondansetron HCl (Zofran) 4 mg 1X ONCE IV 04/16/20 11:30 04/16/20 11:31 DC 04/16/20 11:55 Fentanyl Citrate (Fentanyl 2ml Vial) 50 mcg 1X ONCE IV 04/16/20 14:15 04/16/20 14:16 DC 04/16/20 14:24 Lorazepam (Ativan Inj) 1 mg 1X ONCE IV 04/16/20 15:00 04/16/20 15:01 DC 04/16/20 15:22 Amlodipine Besylate (Norvasc) 10 mg QHS PO 04/16/20 22:00 04/16/20 23:27 Insulin Glargine (Lantus Syringe) 10 unit QHS SQ 04/16/20 22:00 04/16/20 23:27 Ceftriaxone Sodium (Rocephin) 1 gm Q24H IVP 04/16/20 22:30 04/16/20 23:26 Justifications for Admission Other Justification HTN Urgency ROSSY VELARDE MD Apr 17, 2020 08:12
[2020-04-17 10:56] VITALS: BP 135/64
--- NOTE | 2020-04-17 13:36 | NUR ---
SW following for discharge planning. Spoke with RN and reviewed chart. Pt from home. Discharge plan is home, self-care. Pt on room air, IV Rocephin, clear liquid diet, COVID pending. SW following.
[2020-04-17 15:00] VITALS: BP 161/86
[2020-04-17] MEDS: ONDANSETRON PF 4 MG/2 ML VIAL. IV PRN ×2 (15:57→21:29)
[2020-04-17 19:00] VITALS: BP 159/78
[2020-04-17] MEDS ORDERED: INSULIN DETEMIR 10 UNIT SQ SCH (21:00)
[2020-04-17] MEDS: amLODIPine BESYLATE 10 MG TABLET PO SCH (21:28)
[2020-04-17] MEDS: LACTOBACILLUS RHAMNOSUS GG 1 CAPSULE. PO SCH (21:28)
[2020-04-17] MEDS: cefTRIAXone IV Push 1 GM VIAL. IVP SCH (21:29)
[2020-04-17] MEDS: INSULIN GLARGINE SYRINGE. SQ SCH (21:32)
[2020-04-17 23:00] VITALS: BP 138/65
[2020-04-18 03:00] VITALS: BP 144/78
[2020-04-18 07:05] VITALS: BP 158/77
[2020-04-18] MEDS: LACTOBACILLUS RHAMNOSUS GG 1 CAPSULE. PO SCH ×2 (07:52→20:54)
[2020-04-18] MEDS: ONDANSETRON PF 4 MG/2 ML VIAL. IV PRN (07:53)
--- NOTE | 2020-04-18 08:37 | PDOC ---
[facility] [facility] PROGRESS NOTE Date of Service DOS: DATE: 04/18/20 TIME: 08:37 Chief Complaint Chief Complaint A/P: Intractable nausea and vomiting - improved with IV antiemetics, will monitor Abdominal pain - no clear etiology, likely from UTI with hematuria and leukocyte esterase positive Acute anemia - with resolution of her vaginal bleeding, possible secondary source is GI losses Hyponatremia - likely hypovolemic from poor PO intake, vomiting, will replace IVF KASEY due to vasomotor nephropathy unclear chronic kidney disease Severe protein calorie malnutrition - will try to advance diet as soon as feasible Diabetes mellitus insulin-dependent - sliding scale HTN - cont home meds Sepsis - with leukocytosis, UTI, will cont empiric antibiotics. 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 She is accompanied by her significant other. She denies any known Covid exposure. She denies any diarrhea, cough, shortness of breath, chest pain, dysuria, hematuria, vaginal bleeding, or back pain. However, she coughs frequently during examination. She also asks for food during examination despite her c/o vomiting. She also notably has blood stain on her undergarments, though denies vaginal bleeding to the lead refiner. Does have urinary frequency. She was recently admitted 2 weeks ago for endometrial ablation. On TVUS no mass seen, however dilated bowel loops noted, therefore a CT abdomen/pelvis was performed showing no acute abnormality. Tampon visible in vagina on scan. Labs significant for Na 133 04/17: Afebrile overnight. Labs improved. Still with pain, having multiple episodes of diarrhea. She notes that she does not use tampons. On vaginal examination nothing in the vaginal vault this possibly could be artifact. I have contacted CERTIFIED CORPORATE TRAVEL EXECUTIVE to assist to examine Afebrile. Still with pain, nausea, diarrhea. Urine with ESBL e. coli and blood with gram negative rods. Plan: Check c. diff. Cont IVF. Nausea control. Change to IV merrem 1g q 12 hours Vitals/I&O Vitals/I&O: Vital Signs Date Time Temp Pulse Resp B/P (MAP) Pulse Ox O2 Delivery O2 Flow Rate FiO2 04/18/20 03:00 99.7 83 19 144/78 (100) 98 Room Air 99.7 I & O 04/17/20 04/17/20 04/18/20 15:00 23:00 07:00 Intake Total 690 ml 700 ml Balance 690 ml 700 ml Physical Exam General: Alert, Oriented X3, Cooperative, moderate distress, Other (pale, diaphoretic) Abdomen: Normal bowel sounds, Soft, No hepatosplenomegaly, No masses, Other (epigastric pain) Extremities: No clubbing, No cyanosis, No edema, Normal pulses, No tenderness/swelling Skin: No rashes, No breakdown, No significant lesion Labs Labs: Laboratory Tests Test 04/17/20 11:55 04/17/20 17:09 04/17/20 19:56 04/18/20 07:55 Glucose (Fingerstick) 197 mg/dL (70-99) 221 mg/dL (70-99) 280 mg/dL (70-99) 151 mg/dL (70-99) Assessment and Plan Assessmemt and Plan Problems Medical Problems: (1) Nausea & vomiting Status: Acute Comment Review of Relevant I have reviewed the following items fransisco (where applicable) has been applied. Medications: Current Medications Medications (Trade) Dose Ordered Sig/Richar Route PRN Reason Start Time Stop Time Status Last Admin Dose Admin Lactobacillus Rhamnosus (Culturelle) 1 cap BID PO 04/17/20 21:00 04/18/20 07:52 Justifications for Admission Other Justification HTN Urgency ROSSY VELARDE MD Apr 18, 2020 08:37
--- NOTE | 2020-04-18 08:41 | PDOC2 ---
CONSULT Date of Consult Date of Consult DATE: 04/18/20 TIME: 08:40 Reason for Consult Reason for Consult: Possible foreign body in vagina History of Present Illness Reason for Visit: The pt is a 45y who presented to the ER with N/V/D/abd pain. She reported that the pain began 4 days prior to the visit. Over the course of her workup the pt underwent a CT revealing: REPRODUCTIVE ORGANS: Vaginal tampon is present. The pt recently underwent a H/S, D&C, Novasure Ablation on 03/27/20. The pt was asked if she had placed a tampon after the procedure. The pt states that since the procedure her bleeding has been minimal and that she has never used a tampon, even prior to the procedure. The pt denies any placement of any objects in her vagina. Informed the pt that this is likely artifact on the CT, especially since it was not seen on her pelvic u/s (abd probe only). Discussed performing an exam to confirm this. PMH: HTN, DM type II on insulin, Hyperchol, Renal failure, Anemia. PSH: Eye Surgery , C/S x 2, H/S, D&C, Novasure Ablation All: NKDA OBHx: 3 x TSVD, 2 x TC/S. Applique Sewer: regular 28 day cycles. Menarche 12yo. SH: no tob, no EtOH FH: noncontributory Past Medical History Cardiovascular: HTN Endocrine: Diabetes Past Surgical History Past Surgical History: Other (endometrial ablation) Family History Family History: Diabetes, High Cholestrol, Hypertension Social History No ALCOHOL: none Drugs: None Current Problem List Problem List Problems Medical Problems: (1) Nausea & vomiting Status: Acute Current Medications Current Medications Current Medications Sodium Chloride 1,000 ml @ 1,000 mls/hr 1X ONCE IV Last administered on 04/16/20at 11:55; Start 04/16/20 at 11:30; Stop 04/16/20 at 12:29; Status DC Ondansetron HCl (Zofran) 4 mg 1X ONCE IV Last administered on 04/16/20at 11:55; Start 04/16/20 at 11:30; Stop 04/16/20 at 11:31; Status DC Fentanyl Citrate (Fentanyl 2ml Vial) 50 mcg 1X ONCE IV Last administered on 04/16/20at 14:24; Start 04/16/20 at 14:15; Stop 04/16/20 at 14:16; Status DC Lorazepam (Ativan Inj) 1 mg 1X ONCE IV Last administered on 04/16/20at 15:22; Start 04/16/20 at 15:00; Stop 04/16/20 at 15:01; Status DC Ondansetron HCl (Zofran) 4 mg PRN Q4HRS PRN IV NAUSEA/VOMITING Last administered on 04/18/20at 07:53; Start 04/16/20 at 22:00 Zolpidem Tartrate (Ambien) 5 mg PRN QHS PRN PO INSOMNIA; Start 04/16/20 at 22:00 Acetaminophen (Tylenol) 650 mg PRN Q4HRS PRN PO TEMP OVER 100.4F OR MILD PAIN; Start 04/16/20 at 22:00 Docusate Sodium (Colace) 100 mg PRN BID PRN PO HARD STOOLS; Start 04/16/20 at 22:00 Guaifenesin (Robitussin) 200 mg PRN Q4HRS PRN PO COUGH; Start 04/16/20 at 22:00 Amlodipine Besylate (Norvasc) 10 mg QHS PO Last administered on 04/17/20at 21:28; Start 04/16/20 at 22:00 Non-Formulary Medication (Insulin Detemir (Levemir Flextouch)) 10 unit HS SQ ; Start 04/17/20 at 21:00; Status UNV Insulin Glargine (Lantus Syringe) 10 unit QHS SQ Last administered on 04/17/20at 21:32; Start 04/16/20 at 22:00 Ceftriaxone Sodium (Rocephin) 1 gm Q24H IVP Last administered on 04/17/20at 21:29; Start 04/16/20 at 22:30 Lactobacillus Rhamnosus (Culturelle) 1 cap BID PO Last administered on 04/18/20at 07:52; Start 04/17/20 at 21:00 Active Scripts Active Lisinopril 40 Mg Tablet 20 Mg PO QHS 30 Days Amlodipine Besylate 10 Mg Tablet 10 Mg PO QHS 30 Days Medroxyprogesterone Acetate 2.5 Mg Tablet 5 Mg PO DAILY 30 Days Reported Glipizide 5 Mg Tablet 5 Mg PO DAILY Levemir Flextouch (Insulin Detemir) 100 Unit/1 Ml Insuln.pen 30 Unit SQ [id number] Levemir Flextouch (Insulin Detemir) 100 Unit/1 Ml Insuln.pen 50 Unit SQ HS Allergies Allergies: Coded Allergies: No Known Drug Allergies (Unverified , 03/24/20) Physical Exam Physical Exam Vulva: no lesions Vagina: no foreign object seen on speculum exam or on bimanual exam Cervix: no lesions Uterus: no masses Adnexa: no masses General: Alert, Oriented X3, Cooperative, No acute distress HEENT: PERRLA, Mucous membr. moist/pink Lungs: Clear to auscultation, Normal air movement Heart: Regular rate, Normal S1, Normal S2, No murmurs Extremities: No clubbing, No cyanosis, No edema, Normal pulses, No tenderness/swelling Skin: No rashes, No breakdown Neuro: Normal gait, Normal speech, Normal tone, Sensation intact, Reflexes 2+ Psych/Mental Status: Mental status NL, Mood NL Vitals VITALS Vital Signs Date Time Temp Pulse Resp B/P (MAP) Pulse Ox O2 Delivery O2 Flow Rate FiO2 04/18/20 03:00 99.7 83 19 144/78 (100) 98 Room Air 99.7 Labs Labs Laboratory Tests Test 04/16/20 11:00 04/16/20 11:02 04/16/20 11:30 04/16/20 20:26 Urine Collection Type Unknown Urine Color Yellow Urine Clarity Clear Urine pH 6.0 (<5.0-8.0) Urine Specific [place] 1.015 (1.000-1.030) Urine Protein >=300 mg/dL (NEG-TRACE) Urine Glucose (UA) 100 mg/dL (NEG) Urine Ketones (Stick) Negative mg/dL (NEG) Urine Blood Large (NEG) Urine Nitrite Negative (NEG) Urine Bilirubin Negative (NEG) Urine Urobilinogen Dipstick 1.0 mg/dL (0.2 mg/dL) Urine Leukocyte Esterase Trace (NEG) Urine RBC Tntc /HPF (0-2) Urine WBC 0 /HPF (0-4) Urine Squamous Epithelial Cells Many /LPF Urine Bacteria Few /HPF (0-FEW) Bedside Urine HCG, Qualitative Hcg negative (Negative) White Blood Count 12.0 x10^3/uL (4.0-11.0) Red Blood Count 2.61 x10^6/uL (3.50-5.40) Hemoglobin 7.6 g/dL (12.0-15.5) Hematocrit 22.7 % (36.0-47.0) Mean Corpuscular Volume 87 fL (79-100) Mean Corpuscular Hemoglobin 29 pg (25-35) Mean Corpuscular Hemoglobin Concent 34 g/dL (31-37) Red Cell Distribution Width 15.0 % (11.5-14.5) Platelet Count 223 x10^3/uL (140-400) Neutrophils (%) (Auto) 84 % (31-73) Lymphocytes (%) (Auto) 8 % (24-48) Monocytes (%) (Auto) 8 % (0-9) Eosinophils (%) (Auto) 0 % (0-3) Basophils (%) (Auto) 0 % (0-3) Neutrophils # (Auto) 10.0 x10^3/uL (1.8-7.7) Lymphocytes # (Auto) 0.9 x10^3/uL (1.0-4.8) Monocytes # (Auto) 0.9 x10^3/uL (0.0-1.1) Eosinophils # (Auto) 0.0 x10^3/uL (0.0-0.7) Basophils # (Auto) 0.1 x10^3/uL (0.0-0.2) Sodium Level 133 mmol/L (136-145) Potassium Level 4.5 mmol/L (3.5-5.1) Chloride Level 103 mmol/L (98-107) Carbon Dioxide Level 17 mmol/L (21-32) Anion Gap 13 (6-14) Blood Urea Nitrogen 32 mg/dL (7-20) Creatinine 2.3 mg/dL (0.6-1.0) Estimated GFR (Cockcroft-Gault) 22.7 BUN/Creatinine Ratio 14 (6-20) Glucose Level 91 mg/dL (70-99) Calcium Level 8.4 mg/dL (8.5-10.1) Magnesium Level 2.4 mg/dL (1.8-2.4) Total Bilirubin 0.2 mg/dL (0.2-1.0) Aspartate Amino Transf (AST/SGOT) 12 U/L (15-37) Alanine Aminotransferase (ALT/SGPT) 19 U/L (14-59) Alkaline Phosphatase 121 U/L (46-116) Total Protein 6.3 g/dL (6.4-8.2) Albumin 2.1 g/dL (3.4-5.0) Albumin/Globulin Ratio 0.5 (1.0-1.7) Lipase 77 U/L (73-393) Glucose (Fingerstick) 99 mg/dL (70-99) Test 04/17/20 03:50 04/17/20 08:21 04/17/20 11:55 04/17/20 17:09 White Blood Count 9.6 x10^3/uL (4.0-11.0) Red Blood Count 2.64 x10^6/uL (3.50-5.40) Hemoglobin 7.9 g/dL (12.0-15.5) Hematocrit 23.2 % (36.0-47.0) Mean Corpuscular Volume 88 fL (79-100) Mean Corpuscular Hemoglobin 30 pg (25-35) Mean Corpuscular Hemoglobin Concent 34 g/dL (31-37) Red Cell Distribution Width 14.9 % (11.5-14.5) Platelet Count 222 x10^3/uL (140-400) Neutrophils (%) (Auto) 78 % (31-73) Lymphocytes (%) (Auto) 11 % (24-48) Monocytes (%) (Auto) 10 % (0-9) Eosinophils (%) (Auto) 2 % (0-3) Basophils (%) (Auto) 0 % (0-3) Neutrophils # (Auto) 7.5 x10^3/uL (1.8-7.7) Lymphocytes # (Auto) 1.0 x10^3/uL (1.0-4.8) Monocytes # (Auto) 0.9 x10^3/uL (0.0-1.1) Eosinophils # (Auto) 0.2 x10^3/uL (0.0-0.7) Basophils # (Auto) 0.0 x10^3/uL (0.0-0.2) Sodium Level 138 mmol/L (136-145) Potassium Level 4.2 mmol/L (3.5-5.1) Chloride Level 107 mmol/L (98-107) Carbon Dioxide Level 15 mmol/L (21-32) Anion Gap 16 (6-14) Blood Urea Nitrogen 32 mg/dL (7-20) Creatinine 2.0 mg/dL (0.6-1.0) Estimated GFR (Cockcroft-Gault) 26.7 Glucose Level 102 mg/dL (70-99) Calcium Level 8.5 mg/dL (8.5-10.1) Glucose (Fingerstick) 123 mg/dL (70-99) 197 mg/dL (70-99) 221 mg/dL (70-99) Test 04/17/20 19:56 04/18/20 07:55 Glucose (Fingerstick) 280 mg/dL (70-99) 151 mg/dL (70-99) Laboratory Tests Test 04/17/20 11:55 04/17/20 17:09 04/17/20 19:56 04/18/20 07:55 Glucose (Fingerstick) 197 mg/dL (70-99) 221 mg/dL (70-99) 280 mg/dL (70-99) 151 mg/dL (70-99) Assessment/Plan Assessment/Plan Assessment: 45y who presented to the ER with N/V/D/abd pain Recommendations: 1.) Possible foreign body in vagina no object seen on exam. Likely artifact 2.) Intractable nausea and vomiting per primary team 3.) Abd pain - no clear etiology, presumed UTI, managed per primary team 4.) Acute anemia Hgb 7.6 on admission, 10.4 at the time of d/c after Abaltion 5.) KASEY due to vasomotor nephropathy unclear chronic kidney disease Cr 2.3 on admission and at the time of d/c after ablation. 6.) Diabetes mellitus insulin-dependent - sliding scale managed per primary team 7.) HTN managed per primary team 8.) Sepsis - with leukocytosis, UTI, will cont empiric antibiotics. 9.) Cough - COVID 19 pending FARIBA BECKWITH MD Apr 18, 2020 08:41
[2020-04-18 11:05] VITALS: BP 162/82
[2020-04-18] MEDS: AMINO AC 3%/ELECTROLYTE/GLYCER 1,000 ML IV SCH (12:15)
--- NOTE | 2020-04-18 12:28 | NUR ---
CHRISTIANO following for discharge planning. Spoke with RN and reviewed chart. Discharge plan remains home, self-care. Pt remains on room air, IV Rocephin, clear liquid diet, COVID pending. CHRISTIANO following. Addendum: 04/21/20 at 0844 by RUDY ALVARADO Pt transferred to [facility] to follow.
[2020-04-18 15:05] VITALS: BP 180/84
[2020-04-18] MEDS: MEROPENEM 1 GM in IV NORMAL SALINE 100ML 100 ML IV SCH ×2 (17:18→20:54)
[2020-04-18 19:00] VITALS: BP 161/74
[2020-04-18] MEDS: amLODIPine BESYLATE 10 MG TABLET PO SCH (20:54)
[2020-04-18 23:00] VITALS: BP 140/65
[2020-04-18] MEDS: INSULIN GLARGINE SYRINGE. SQ SCH (23:10)
[2020-04-19 03:00] VITALS: BP 136/68
[2020-04-19] MEDS: AMINO AC 3%/ELECTROLYTE/GLYCER 1,000 ML IV SCH ×2 (03:30→16:17)
[2020-04-19 04:37] LABS: BASO # 0.1 x10^3/uL (0.0-0.2); BASO % 1 % (0-3); EOS # 0.5 x10^3/uL (0.0-0.7); EOS % 7 % (0-3); HEMATOCRIT 23.3 % (36.0-47.0); HEMOGLOBIN 7.9 g/dL (12.0-15.5); LYMPH # 1.3 x10^3/uL (1.0-4.8); LYMPH % 19 % (24-48); MEAN CORPUSCULAR HEMOGLOBIN 29 pg (25-35); MEAN CORPUSCULAR HGB CONC 34 g/dL (31-37); MEAN CORPUSCULAR VOLUME 85 fL (79-100); MONO # 0.9 x10^3/uL (0.0-1.1); MONO % 13 % (0-9); NEUT # 4.3 x10^3/uL (1.8-7.7); NEUT % 61 % (31-73); PLATELET COUNT 261 x10^3/uL (140-400); RED BLOOD COUNT 2.74 x10^6/uL (3.50-5.40); RED CELL DISTRIBUTION WIDTH 14.8 % (11.5-14.5)
[2020-04-19 05:11] LABS: ALBUMIN 1.8 g/dL (3.4-5.0); ALBUMIN/GLOBULIN RATIO 0.4 (1.0-1.7); CALCIUM 8.4 mg/dL (8.5-10.1); CREATININE 1.9 mg/dL (0.6-1.0); GFR 28.3; POTASSIUM 4.3 mmol/L (3.5-5.1); TOTAL BILIRUBIN 0.1 mg/dL (0.2-1.0)
[2020-04-19 07:00] VITALS: BP 144/67
[2020-04-19] MEDS: MEROPENEM 1 GM in IV NORMAL SALINE 100ML 100 ML IV SCH ×2 (09:00→21:08)
[2020-04-19] MEDS: LACTOBACILLUS RHAMNOSUS GG 1 CAPSULE. PO SCH ×2 (09:00→20:42)
[2020-04-19 11:00] VITALS: BP 156/73
--- NOTE | 2020-04-19 13:24 | PDOC ---
[facility] PROGRESS NOTE Date of Service DOS: DATE: 04/19/20 TIME: 13:22 Chief Complaint Chief Complaint A/P: Intractable nausea and vomiting - improved with IV antiemetics, will monitor ESBL UTI - changed to meropenem Abdominal pain - no clear etiology, likely from UTI with hematuria and leukocyte esterase positive Acute anemia - with resolution of her vaginal bleeding, possible secondary source is GI losses Hyponatremia - likely hypovolemic from poor PO intake, vomiting, will replace IVF KASEY due to vasomotor nephropathy unclear chronic kidney disease Severe protein calorie malnutrition - will try to advance diet as soon as feasible Diabetes mellitus insulin-dependent - sliding scale HTN - cont home meds Sepsis - with leukocytosis, UTI, will cont empiric antibiotics. 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 She is accompanied by her significant other. She denies any known Covid exposure. She denies any diarrhea, cough, shortness of breath, chest pain, dysuria, hematuria, vaginal bleeding, or back pain. However, she coughs frequently during examination. She also asks for food during examination despite her c/o vomiting. She also notably has blood stain on her undergarments, though denies vaginal bleeding to the maintenance repairman. Does have urinary frequency. She was recently admitted 2 weeks ago for endometrial ablation. On TVUS no mass seen, however dilated bowel loops noted, therefore a CT abdomen/pelvis was performed showing no acute abnormality. Tampon visible in vagina on scan. Labs significant for Na 133 04/17: Afebrile overnight. Labs improved. Still with pain, having multiple episodes of diarrhea. She notes that she does not use tampons. On vaginal e xamination nothing in the vaginal vault this possibly could be artifact. I have contacted CARDIOLOGY TECHNOLOGIST to assist to examine 04/18: Afebrile. Still with pain, nausea, diarrhea. Urine with ESBL e. coli and blood with gram negative rods. Afebrile, feeling minimally improved today. Less diarrhea. Plan: Check c. diff. Cont IVF. Nausea control. Change to IV merrem 1g q 12 hours Transfer to med/surg Vitals/I&O Vitals/I&O: Vital Signs Date Time Temp Pulse Resp B/P (MAP) Pulse Ox O2 Delivery O2 Flow Rate FiO2 04/19/20 07:00 96.9 82 26 144/67 (92) 95 Room Air 96.9 I & O 04/18/20 04/18/20 04/19/20 15:00 23:00 07:00 Intake Total 100 ml 100 ml Output Total 0 ml Balance 100 ml 100 ml Physical Exam General: Alert, Oriented X3, Cooperative, No acute distress Heart: Regular rate, Normal S1, Normal S2, No murmurs Abdomen: Normal bowel sounds, Soft, No hepatosplenomegaly, No masses, Other (epigastric pain) Extremities: No clubbing, No cyanosis, No edema, Normal pulses, No tenderness/swelling Skin: No rashes, No breakdown Labs Labs: Laboratory Tests Test 04/18/20 17:00 04/18/20 20:42 04/19/20 03:30 04/19/20 08:12 Glucose (Fingerstick) 221 mg/dL (70-99) 265 mg/dL (70-99) 192 mg/dL (70-99) White Blood Count 7.0 x10^3/uL (4.0-11.0) Red Blood Count 2.74 x10^6/uL (3.50-5.40) Hemoglobin 7.9 g/dL (12.0-15.5) Hematocrit 23.3 % (36.0-47.0) Mean Corpuscular Volume 85 fL (79-100) Mean Corpuscular Hemoglobin 29 pg (25-35) Mean Corpuscular Hemoglobin Concent 34 g/dL (31-37) Red Cell Distribution Width 14.8 % (11.5-14.5) Platelet Count 261 x10^3/uL (140-400) Neutrophils (%) (Auto) 61 % (31-73) Lymphocytes (%) (Auto) 19 % (24-48) Monocytes (%) (Auto) 13 % (0-9) Eosinophils (%) (Auto) 7 % (0-3) Basophils (%) (Auto) 1 % (0-3) Neutrophils # (Auto) 4.3 x10^3/uL (1.8-7.7) Lymphocytes # (Auto) 1.3 x10^3/uL (1.0-4.8) Monocytes # (Auto) 0.9 x10^3/uL (0.0-1.1) Eosinophils # (Auto) 0.5 x10^3/uL (0.0-0.7) Basophils # (Auto) 0.1 x10^3/uL (0.0-0.2) Sodium Level 133 mmol/L (136-145) Potassium Level 4.3 mmol/L (3.5-5.1) Chloride Level 103 mmol/L (98-107) Carbon Dioxide Level 18 mmol/L (21-32) Anion Gap 12 (6-14) Blood Urea Nitrogen 24 mg/dL (7-20) Creatinine 1.9 mg/dL (0.6-1.0) Estimated GFR (Cockcroft-Gault) 28.3 BUN/Creatinine Ratio 13 (6-20) Glucose Level 205 mg/dL (70-99) Calcium Level 8.4 mg/dL (8.5-10.1) Total Bilirubin 0.1 mg/dL (0.2-1.0) Aspartate Amino Transf (AST/SGOT) 11 U/L (15-37) Alanine Aminotransferase (ALT/SGPT) 24 U/L (14-59) Alkaline Phosphatase 109 U/L (46-116) Total Protein 6.0 g/dL (6.4-8.2) Albumin 1.8 g/dL (3.4-5.0) Albumin/Globulin Ratio 0.4 (1.0-1.7) Assessment and Plan Assessmemt and Plan Problems Medical Problems: (1) Nausea & vomiting Status: Acute Comment Review of Relevant I have reviewed the following items fransisco (where applicable) has been applied. Medications: Current Medications Medications (Trade) Dose Ordered Sig/Richar Route PRN Reason Start Time Stop Time Status Last Admin Dose Admin Meropenem 1 gm/ Sodium Chloride 100 ml @ 200 mls/hr Q12HR IV 04/18/20 17:00 04/18/20 20:54 Justifications for Admission Other Justification HTN Urgency ROSSY VELARDE MD Apr 19, 2020 13:24
[2020-04-19 15:00] VITALS: BP 165/80
[2020-04-19] MEDS: ONDANSETRON PF 4 MG/2 ML VIAL. IV PRN (16:17)
--- NOTE | 2020-04-19 18:30 | NUR ---
Pt stated seeing mice in the room, and thinking the linen basket was a giant trap for mice. Pt would jump up and get scared impulsively.
[2020-04-19 19:00] VITALS: BP 157/81
[2020-04-19] MEDS: amLODIPine BESYLATE 10 MG TABLET PO SCH (20:42)
[2020-04-19] MEDS: INSULIN GLARGINE SYRINGE. SQ SCH (20:43)
[2020-04-19 23:41] VITALS: BP 171/74
[2020-04-20] VITALS (7 sets, daily range): BP systolic 130–172; BP diastolic 68–98
[2020-04-20] MEDS: AMINO AC 3%/ELECTROLYTE/GLYCER 1,000 ML IV SCH ×2 (00:27→11:19)
[2020-04-20] MEDS: ONDANSETRON PF 4 MG/2 ML VIAL. IV PRN (08:00)
--- NOTE | 2020-04-20 08:30 | PDOC ---
[facility] PROGRESS NOTE Date of Service DOS: DATE: 04/20/20 TIME: 08:30 Chief Complaint Chief Complaint A/P: ESBL UTI - changed to meropenem Gram negative bacteremia - ESBL. repeat blood cultures to check for clearance prior to PICC placement. Consult ID Intractable nausea and vomiting - improved with IV antiemetics, will monitor Abdominal pain - clear etiology, likely from UTI with hematuria and leukocyte esterase positive Acute anemia - with resolution of her vaginal bleeding, possible secondary source is GI losses Hyponatremia - likely hypovolemic from poor PO intake, vomiting, will replace IVF KASEY due to vasomotor nephropathy unclear chronic kidney disease Severe protein calorie malnutrition - will try to advance diet as soon as feasible Diabetes mellitus insulin-dependent - sliding scale HTN - cont home meds Sepsis - with leukocytosis, UTI, will cont empiric antibiotics. 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 She is accompanied by her significant other. She denies any known Covid exposure. She denies any diarrhea, cough, shortness of breath, chest pain, dysuria, hematuria, vaginal bleeding, or back pain. However, she coughs frequently during examination. She also asks for food during examination despite her c/o vomiting. She also notably has blood stain on her undergarments, though denies vaginal bleeding to the case sealer. Does have urinary frequency. She was recently admitted 2 weeks ago for endometrial ablation. On TVUS no mass seen, however dilated bowel loops noted, therefore a CT abdomen/pelvis was performed showing no acute abnormality. Tampon visible in vagina on scan. Labs significant for Na 133 04/17: Afebrile overnight. Labs improved. Still with pain, having multiple episodes of diarrhea. She notes that she does not use tampons. On vaginal exam ination nothing in the vaginal vault this possibly could be artifact. I have contacted PATTERN MOLDER to assist to examine 04/18: Afebrile. Still with pain, nausea, diarrhea. Urine with ESBL e. coli and blood with gram negative rods. 04/19: Afebrile, feeling minimally improved today. Less diarrhea. Afebrile. Nausea has improved and she is asking for more food. No diarrhea. Tolerating meropenem well. Repeat blood cultures obtained. Initial blood cultures positive for same ESBL as urine. C diff negative. Plan: Cont IVF. Nausea control. Change to IV merrem 1g q 12 hours Transfer to med/surg Vitals/I&O Vitals/I&O: Vital Signs Date Time Temp Pulse Resp B/P (MAP) Pulse Ox O2 Delivery O2 Flow Rate FiO2 04/20/20 03:00 97.3 68 18 172/78 (109) 100 97.3 04/19/20 23:41 Room Air I & O 04/19/20 04/19/20 04/20/20 15:00 23:00 07:00 Intake Total 100 ml Balance 100 ml Physical Exam General: Alert, Oriented X3, Cooperative, No acute distress Heart: Regular rate, Normal S1, Normal S2, No murmurs Abdomen: Normal bowel sounds, Soft, No hepatosplenomegaly, No masses, Other (epigastric pain) Extremities: No clubbing, No cyanosis, No edema, Normal pulses, No tenderness/swelling Skin: No rashes, No breakdown Labs Labs: Laboratory Tests Test 04/19/20 12:22 04/19/20 20:39 Glucose (Fingerstick) 234 mg/dL (70-99) 251 mg/dL (70-99) Assessment and Plan Assessmemt and Plan Problems Medical Problems: (1) Nausea & vomiting Status: Acute Comment Review of Relevant I have reviewed the following items fransisco (where applicable) has been applied. Justifications for Admission Other Justification HTN Urgency ROSSY VELARDE MD Apr 20, 2020 08:30
[2020-04-20] MEDS: LACTOBACILLUS RHAMNOSUS GG 1 CAPSULE. PO SCH ×2 (11:18→20:36)
[2020-04-20] MEDS: MEROPENEM 1 GM in IV NORMAL SALINE 100ML 100 ML IV SCH ×2 (11:19→20:35)
--- NOTE | 2020-04-20 14:38 | NUR ---
IP: Pt is to remain in contact precautions due to ESBL in urine culture.
[2020-04-20] MEDS ORDERED: DEXTROSE 50% 25 GM / 50ML DISP.SYRIN. IV PRN (15:45)
[2020-04-20] MEDS: INSULIN LISPRO 300 UNITS/3 ML VIAL. SQ SCH (17:53)
[2020-04-20] MEDS: amLODIPine BESYLATE 10 MG TABLET PO SCH (20:36)
[2020-04-20] MEDS: INSULIN GLARGINE SYRINGE. SQ SCH (20:45)
[2020-04-21] MEDS: AMINO AC 3%/ELECTROLYTE/GLYCER 1,000 ML IV SCH ×2 (02:41→14:40)
[2020-04-21 03:25] VITALS: BP 133/63
[2020-04-21 07:00] VITALS: BP 150/76
[2020-04-21] MEDS: MEROPENEM 1 GM in IV NORMAL SALINE 100ML 100 ML IV SCH (08:09)
[2020-04-21] MEDS: LACTOBACILLUS RHAMNOSUS GG 1 CAPSULE. PO SCH (08:09)
[2020-04-21] MEDS: INSULIN LISPRO 300 UNITS/3 ML VIAL. SQ SCH ×2 (08:12→12:04)
[2020-04-21 08:44] LABS: BASO # 0.1 x10^3/uL (0.0-0.2); BASO % 1 % (0-3); EOS # 0.7 x10^3/uL (0.0-0.7); EOS % 8 % (0-3); HEMOGLOBIN 8.3 g/dL (12.0-15.5); LYMPH # 1.9 x10^3/uL (1.0-4.8); LYMPH % 23 % (24-48); MEAN CORPUSCULAR HEMOGLOBIN 29 pg (25-35); MEAN CORPUSCULAR HGB CONC 35 g/dL (31-37); MEAN CORPUSCULAR VOLUME 85 fL (79-100); MONO # 0.4 x10^3/uL (0.0-1.1); MONO % 6 % (0-9); NEUT # 5.1 x10^3/uL (1.8-7.7); NEUT % 63 % (31-73); PLATELET COUNT 376 x10^3/uL (140-400); RED BLOOD COUNT 2.83 x10^6/uL (3.50-5.40); RED CELL DISTRIBUTION WIDTH 14.5 % (11.5-14.5); WHITE BLOOD COUNT 8.1 x10^3/uL (4.0-11.0)
[2020-04-21 09:11] LABS: ALBUMIN/GLOBULIN RATIO 0.4 (1.0-1.7); CALCIUM 8.7 mg/dL (8.5-10.1); CREATININE 1.8 mg/dL (0.6-1.0); GFR 30.2; POTASSIUM 5.3 mmol/L (3.5-5.1); TOTAL BILIRUBIN 0.2 mg/dL (0.2-1.0); TOTAL PROTEIN 6.7 g/dL (6.4-8.2)
--- NOTE | 2020-04-21 09:43 | PDOC ---
Infectious Disease Note Vital Sign Vital Signs Vital Signs Date Time Temp Pulse Resp B/P (MAP) Pulse Ox O2 Delivery O2 Flow Rate FiO2 04/21/20 07:00 98.1 79 18 150/76 (100) 98 Room Air 98.1 Labs Lab Laboratory Tests Test 04/20/20 12:24 04/20/20 16:30 04/20/20 20:40 04/21/20 07:12 Glucose (Fingerstick) 252 mg/dL (70-99) 287 mg/dL (70-99) 191 mg/dL (70-99) 195 mg/dL (70-99) Test 04/21/20 08:31 White Blood Count 8.1 x10^3/uL (4.0-11.0) Red Blood Count 2.83 x10^6/uL (3.50-5.40) Hemoglobin 8.3 g/dL (12.0-15.5) Hematocrit 24.0 % (36.0-47.0) Mean Corpuscular Volume 85 fL (79-100) Mean Corpuscular Hemoglobin 29 pg (25-35) Mean Corpuscular Hemoglobin Concent 35 g/dL (31-37) Red Cell Distribution Width 14.5 % (11.5-14.5) Platelet Count 376 x10^3/uL (140-400) Neutrophils (%) (Auto) 63 % (31-73) Lymphocytes (%) (Auto) 23 % (24-48) Monocytes (%) (Auto) 6 % (0-9) Eosinophils (%) (Auto) 8 % (0-3) Basophils (%) (Auto) 1 % (0-3) Neutrophils # (Auto) 5.1 x10^3/uL (1.8-7.7) Lymphocytes # (Auto) 1.9 x10^3/uL (1.0-4.8) Monocytes # (Auto) 0.4 x10^3/uL (0.0-1.1) Eosinophils # (Auto) 0.7 x10^3/uL (0.0-0.7) Basophils # (Auto) 0.1 x10^3/uL (0.0-0.2) Prothrombin Time 13.0 SEC (11.7-14.0) Prothromb Time International Ratio 1.0 (0.8-1.1) Sodium Level 132 mmol/L (136-145) Potassium Level 5.3 mmol/L (3.5-5.1) Chloride Level 101 mmol/L (98-107) Carbon Dioxide Level 21 mmol/L (21-32) Anion Gap 10 (6-14) Blood Urea Nitrogen 32 mg/dL (7-20) Creatinine 1.8 mg/dL (0.6-1.0) Estimated GFR (Cockcroft-Gault) 30.2 BUN/Creatinine Ratio 18 (6-20) Glucose Level 223 mg/dL (70-99) Calcium Level 8.7 mg/dL (8.5-10.1) Total Bilirubin 0.2 mg/dL (0.2-1.0) Aspartate Amino Transf (AST/SGOT) 43 U/L (15-37) Alanine Aminotransferase (ALT/SGPT) 80 U/L (14-59) Alkaline Phosphatase 153 U/L (46-116) Total Protein 6.7 g/dL (6.4-8.2) Albumin 2.0 g/dL (3.4-5.0) Albumin/Globulin Ratio 0.4 (1.0-1.7) Micro Microbiology 04/20/20 Blood Culture - Preliminary, Resulted NO GROWTH AFTER 1 DAY 04/16/20 Urine Culture - Final, Complete 04/16/20 Antimicrobic Susceptibility - Final, Complete Objective Assessment PT SEEN, CONSULT DICTATED Plan Plan of Care / CORTEZ AVINA MD Apr 21, 2020 09:43
[2020-04-21] MEDS ORDERED: ERTAPENEM 1GM IVPB(GENERIC) NS 50 ML IV ONE (10:00)
[2020-04-21 10:27] VITALS: BP 147/85
--- NOTE | 2020-04-21 10:57 | CONS ---
DATE OF CONSULTATION: 04/21/2020 REQUESTING PHYSICIAN: Everton Quigley MD REASON FOR CONSULTATION: ESBL, UTI and bacteremia. HISTORY OF PRESENT ILLNESS: This is a 45-year-old female, who had undergone last admission in March. On 03/27/2020, for menorrhagia, the patient underwent endometrial curetting and ablation. The patient subsequently was discharged. The patient returned with nausea, vomiting and chills. The patient also somewhat is encephalopathic, confused, had white count of 12,000. The patient's blood culture turned positive with E. coli ESBL producing with multidrug resistant, hence consultation. The patient's Rocephin had changed to now meropenem. The patient's urine is also positive with the same organism. The patient does not have any urinary symptoms, at least not now. The patient is feeling better. There is no nausea, vomiting, diarrhea, chest pain, shortness of breath, confusion. Encephalopathy has improved. PAST MEDICAL HISTORY: Positive for menorrhagia with endometrial ablation done on 03/27/2020. The patient also has hyperlipidemia, hypertension, obesity, retinopathy, diabetes. SOCIAL HISTORY: Negative for smoking, alcohol or illicit drug use. ALLERGIES: No known drug allergies. CURRENT MEDICATIONS: Reviewed. REVIEW OF SYSTEMS: As per HPI, all other systems reviewed are negative. PHYSICAL EXAMINATION: GENERAL: Alert, oriented female, not in distress. VITAL SIGNS: Stable. When the patient came in, she had 100.1 temperature. HEENT: Both pupils are round and reacting. No conjunctival lesion. No lesion in the mouth. NECK: Supple. No JVP. No lymphadenopathy. LUNGS: Clear. HEART: S1, S2 regular. ABDOMEN: Soft, nontender. No organomegaly. EXTREMITIES: No edema or cyanosis. SKIN: Unremarkable. NEUROLOGIC: The patient is alert, awake and appropriate. No focal neurologic deficit. LABORATORY DATA: White count is normal, now down to 8.1 from 12.0. BUN and creatinine is 32 and 1.8; appears to be her baseline. Her ALT and AST is 43 and 80. Urinalysis was [id number]-og-count rbc, not wbc. Blood culture done on 04/16/2020 is ESBL producing E. coli and urine culture was on the same day is positive with the same bug. IMPRESSION: 1. Extended-spectrum beta-lactamase producing Escherichia coli bacteremia with sepsis. 2. 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 Dr. Meyers has seen the patient. A question of foreign body was raised, which turned out to be, at least by his exam, nothing there. An abdominal CT and transvaginal CT was done, which is abdominal CT is unremarkable. Pelvic CT is unremarkable. Abdominopelvic, vaginal ultrasound showed some tubular structure. Again, Dr. Meyers thinks it is probably artifact. RECOMMENDATIONS: There is no good oral option for this. I would do 2 weeks of IV Invanz. The patient can be discharged with midline and IV Invanz for social service to arrange. Thank you very much, Dr. Quigley, for giving me the opportunity to participate in this patient's care. CORTEZ AVINA MD DR: LIZ/ofelia JOB#: [id number] / [id number]
--- NOTE | 2020-04-21 11:15 | PDOC ---
[facility] PROGRESS NOTE Date of Service DOS: DATE: 04/21/20 TIME: 11:08 Chief Complaint Chief Complaint A/P: ESBL UTI - changed to meropenem Gram negative bacteremia - ESBL. repeat blood cultures to check for clearance prior to PICC placement. Consult ID Intractable nausea and vomiting - improved with IV antiemetics, will monitor Abdominal pain - clear etiology, likely from UTI with hematuria and leukocyte esterase positive Acute anemia - with resolution of her vaginal bleeding, possible secondary source is GI losses Hyponatremia - likely hypovolemic from poor PO intake, vomiting, will replace IVF KASEY due to vasomotor nephropathy unclear chronic kidney disease Severe protein calorie malnutrition - will try to advance diet as soon as feasible Diabetes mellitus insulin-dependent - sliding scale HTN - cont home meds Sepsis - with leukocytosis, UTI, will cont empiric antibiotics. 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 She is accompanied by her significant other. She denies any known Covid exposure. She denies any diarrhea, cough, shortness of breath, chest pain, dysuria, hematuria, vaginal bleeding, or back pain. However, she coughs frequently during examination. She also asks for food during examination despite her c/o vomiting. She also notably has blood stain on her undergarments, though denies vaginal bleeding to the wire splicer. Does have urinary frequency. She was recently admitted 2 weeks ago for endometrial ablation. On TVUS no mass seen, however dilated bowel loops noted, therefore a CT abdomen/pelvis was performed showing no acute abnormality. Tampon visible in vagina on scan. Labs significant for Na 133 04/21 Seen and examined. DW RN and DW Case management. Ready to go home. Vitals/I&O Vitals/I&O: Vital Signs Date Time Temp Pulse Resp B/P (MAP) Pulse Ox O2 Delivery O2 Flow Rate FiO2 04/21/20 10:27 04/21/20 10:27 98.0 83 18 100 Room Air 98.0 I & O 04/20/20 04/20/20 04/21/20 15:00 23:00 07:00 Intake Total 350 ml 300 ml Balance 350 ml 300 ml Physical Exam General: Alert, Oriented X3, Cooperative, No acute distress Heart: Regular rate, Normal S1, Normal S2, No murmurs Lungs: Clear Abdomen: Normal bowel sounds, Soft, No hepatosplenomegaly, No masses, Other (epigastric pain) Extremities: No clubbing, No cyanosis, No edema, Normal pulses, No tenderness/swelling Skin: No rashes, No breakdown Labs Labs: Laboratory Tests Test 04/20/20 12:24 04/20/20 16:30 04/20/20 20:40 04/21/20 07:12 Glucose (Fingerstick) 252 mg/dL (70-99) 287 mg/dL (70-99) 191 mg/dL (70-99) 195 mg/dL (70-99) Test 04/21/20 08:31 White Blood Count 8.1 x10^3/uL (4.0-11.0) Red Blood Count 2.83 x10^6/uL (3.50-5.40) Hemoglobin 8.3 g/dL (12.0-15.5) Hematocrit 24.0 % (36.0-47.0) Mean Corpuscular Volume 85 fL (79-100) Mean Corpuscular Hemoglobin 29 pg (25-35) Mean Corpuscular Hemoglobin Concent 35 g/dL (31-37) Red Cell Distribution Width 14.5 % (11.5-14.5) Platelet Count 376 x10^3/uL (140-400) Neutrophils (%) (Auto) 63 % (31-73) Lymphocytes (%) (Auto) 23 % (24-48) Monocytes (%) (Auto) 6 % (0-9) Eosinophils (%) (Auto) 8 % (0-3) Basophils (%) (Auto) 1 % (0-3) Neutrophils # (Auto) 5.1 x10^3/uL (1.8-7.7) Lymphocytes # (Auto) 1.9 x10^3/uL (1.0-4.8) Monocytes # (Auto) 0.4 x10^3/uL (0.0-1.1) Eosinophils # (Auto) 0.7 x10^3/uL (0.0-0.7) Basophils # (Auto) 0.1 x10^3/uL (0.0-0.2) Prothrombin Time 13.0 SEC (11.7-14.0) Prothromb Time International Ratio 1.0 (0.8-1.1) Sodium Level 132 mmol/L (136-145) Potassium Level 5.3 mmol/L (3.5-5.1) Chloride Level 101 mmol/L (98-107) Carbon Dioxide Level 21 mmol/L (21-32) Anion Gap 10 (6-14) Blood Urea Nitrogen 32 mg/dL (7-20) Creatinine 1.8 mg/dL (0.6-1.0) Estimated GFR (Cockcroft-Gault) 30.2 BUN/Creatinine Ratio 18 (6-20) Glucose Level 223 mg/dL (70-99) Calcium Level 8.7 mg/dL (8.5-10.1) Total Bilirubin 0.2 mg/dL (0.2-1.0) Aspartate Amino Transf (AST/SGOT) 43 U/L (15-37) Alanine Aminotransferase (ALT/SGPT) 80 U/L (14-59) Alkaline Phosphatase 153 U/L (46-116) Total Protein 6.7 g/dL (6.4-8.2) Albumin 2.0 g/dL (3.4-5.0) Albumin/Globulin Ratio 0.4 (1.0-1.7) Review of Systems Review of Systems: No headaches. No abdominal pain. Assessment and Plan Assessmemt and Plan Problems Medical Problems: (1) Nausea & vomiting Status: Acute ESBL UTI - changed to meropenem Gram negative bacteremia - ESBL. repeat blood cultures to check for clearance prior to PICC placement. Consult ID Intractable nausea and vomiting - improved with IV antiemetics, will monitor Abdominal pain - clear etiology, likely from UTI with hematuria and leukocyte esterase positive Acute anemia - with resolution of her vaginal bleeding, possible secondary source is GI losses Hyponatremia - likely hypovolemic from poor PO intake, vomiting, will replace IVF KASEY due to vasomotor nephropathy unclear chronic kidney disease Severe protein calorie malnutrition - will try to advance diet as soon as feasib le Diabetes mellitus insulin-dependent - sliding scale HTN - cont home meds Sepsis - with leukocytosis, UTI, will cont empiric antibiotics. Cough - COVID 19 negative Diarrhea - likely from sepsis, is improved Plan: Discharge to home Discuss ID IV Ivanz PT/OT DVT prophylaxis Comment Review of Relevant I have reviewed the following items fransisco (where applicable) has been applied. Medications: Current Medications Medications (Trade) Dose Ordered Sig/Richar Route PRN Reason Start Time Stop Time Status Last Admin Dose Admin Insulin Human Lispro (HumaLOG) 0-9 UNITS TIDWMEALS SQ 04/20/20 17:00 04/21/20 08:12 Justifications for Admission Other Justification HTN Urgency BERNICE CRUZ III DO Apr 21, 2020 11:15
--- NOTE | 2020-04-21 11:21 | DS ---
DATE OF DISCHARGE: 04/21/2020 ADMISSION DIAGNOSES: Nausea, vomiting, anemia, urinary tract infection. DISCHARGE DIAGNOSES: Resolving urinary tract infection, resolving nausea and vomiting. CONSULTS: Infectious Disease. HOSPITAL COURSE: The patient is a pleasant middle-aged female, who presented with nausea, vomiting, was noted to have ESBL UTI. She was admitted. We consulted ID. She was placed on IV meropenem. Today, I saw and examined the patient. She is at her baseline. I discussed the case with the Infectious Disease doctor. He would like to change her to IV Invanz and we got a midline. We are going to set her up for discharge this afternoon. DISPOSITION: Home for IV antibiotics. ACTIVITY: As tolerated. DIET: Low sodium. MEDICATIONS: Please see MRAD. TOTAL TIME: 34 minutes. BERNICE CRUZ DO DR: NEELIMA/ofelia JOB#: [id number] / [id number]
--- NOTE | 2020-04-21 11:59 | NUR ---
SW following. Discussed with RN, pt needing IV Invanz 1gm daily for 2 weeks upon discharge. CHRISTIANO met with pt and pt's at bedside to discuss. KHANG Butcher translated due to no blue phone. Pt and pt's would prefer to do outpatient infusion at the is worried about doing it wrong at home. They would like a hospital closer to their home in [place], [place], and wondered how long it takes, as the will have to take off work. CHRISTIANO contacted [facility] - they advised the order has to come from a physician who has privileges at their hospital. CHRISTIANO contacted [facility] outpatient for timing - it takes a total of 45 minutes to 1 hour and the earliest the patient could come is 0700. CHRISTIANO notified RN, RN asked SW to fax to a home infusion company to get benefits to determine cost for at home, so the patient and can decide what they would like to do. CHRISTIANO faxed script and demographics to [facility], as they typically have the faster turn around for benefits. CHRISTIANO will continue to follow. Addendum: 04/21/20 at 1522 by JOSÉ LUIS ALVARADO [facility] advised it would be $42.64 a day for patient to do home infusion until out of pocket of $4000 is met - pt has met $2762, then pt would be 100% covered. CHRISTIANO met with pt and pt's with RN to translate - they would like to come to [facility] outpatient at 0700 to do outpatient infusion. CHRISTIANO notified the outpatient department - they advised pt for to come at 0700 tomorrow (04/22/2020). RN contacting Dr. Oakley to determine if pt can discharge home today.
[2020-04-21] MEDS: ONDANSETRON PF 4 MG/2 ML VIAL. IV PRN (12:03)
[2020-04-21] MEDS ORDERED: LIDOCAINE WITH 8.4% SOD BICARB 3 ML DISP.SYRIN. ONE (13:42)
[2020-04-21] MEDS ORDERED: LIDOCAINE WITH 8.4% SOD BICARB 3 ML DISP.SYRIN. INJ ONE (14:15)
[2020-04-21 14:55] VITALS: BP 157/82
--- NOTE | 2020-04-21 15:28 | RAD ---
Exam: Fluoroscopic and ultrasound guided right percutaneous inserted central venous catheter placement 04/21/2020 1:24 PM .Indication: IV ANTIBIOTICS, MIDLINE OK Technique: Informed oral and written consent were obtained. The right upper extremity was prepped and draped using sterile barrier technique. All elements of maximal sterile barrier technique including the use of a cap, mask, sterile gown, sterile gloves, large sterile sheet, appropriate hand hygiene, and 2% chlorhexidine for cutaneous antisepsis (or acceptable alternative antiseptic per current guidelines) were followed for this procedure.. Real-time ultrasound demonstrated a patent right cephalic vein which was prepped and draped in usual sterile fashion. 1% lidocaine used for local anesthesia. Using real-time ultrasound guidance the access needle percutaneously punctured the selected right cephalic vein. Reference ultrasound images were saved to the medical record. A guidewire was advanced through the needle to the cavoatrial junction, and a peel-away sheath placed. The catheter was cut to length and inserted through the peel-away sheath such that its tip is at the cavoatrial junction. The wire and sheath were removed, and the catheter secured in place, and a sterile dressing was applied. Catheter was found to flush and aspirate normally. No immediate complications are identified. FLUORO TIME: 0.1 min DOSE AREA PRODUCT: 1 Gycm2 Impression: Ultrasound and fluoroscopically guided placement of a right upper extremity PICC line.
== END 2020-04-21 16:10 | disposition home or self-care (01) | DRG 871 ==
LOC: ER 10:47 → 5 NORTH 17:13 → 6 SOUTH 04-17 00:27 → 4 NORTH 04-20 19:16
PROVIDERS: ADMIT Internal Medicine; ATTEND Internal Medicine
PROC: 02HV33Z Insertion of Infusion Device into Superior Vena Cava, Percutaneous Approach (ICD-10-PCS; principal; 2020-04-21)
PROC: B5181ZA Fluoroscopy of Superior Vena Cava using Low Osmolar Contrast, Guidance (ICD-10-PCS; 2020-04-21)
PROC: B548ZZA Ultrasonography of Superior Vena Cava, Guidance (ICD-10-PCS; 2020-04-21)
DX: A41.51 Sepsis due to Escherichia coli [E. coli] (principal); E43 Unspecified severe protein-calorie malnutrition; N17.0 Acute kidney failure with tubular necrosis; E87.1 Hypo-osmolality and hyponatremia; G93.40 Encephalopathy, unspecified; N39.0 Urinary tract infection, site not specified; Z16.12 Extended spectrum beta lactamase (ESBL) resistance; Z16.24 Resistance to multiple antibiotics; E11.22 Type 2 diabetes mellitus with diabetic chronic kidney disease; E11.319 Type 2 diabetes mellitus with unspecified diabetic retinopathy without macular edema; E66.9 Obesity, unspecified; I12.9 Hypertensive chronic kidney disease with stage 1 through stage 4 chronic kidney disease, or unspecified chronic kidney disease; D64.9 Anemia, unspecified; E78.5 Hyperlipidemia, unspecified; N18.9 Chronic kidney disease, unspecified; Z20.828 Contact with and (suspected) exposure to other viral communicable diseases; Z79.4 Long term (current) use of insulin; Z82.49 Family history of ischemic heart disease and other diseases of the circulatory system; Z83.3 Family history of diabetes mellitus; Z68.33 Body mass index [BMI] 33.0-33.9, adult
CPT/HCPCS: 36415; 36573; 74176; 76856; 77001; 80048; 80053; 81001; 81025; 82962; 83690; 83735; 85025; 85610; 87040; 87077; 87086; 87186; 87205; 87493; 96361; 96374; 96375; C1751; C1892; J0696; J1335; J1815; J2060; J2185; J2405; J3010; J3490; J7030; U0003; 97116-GP; 97535-GO; 99285-25; G0378

== ENCOUNTER 2020-08-18 10:26 | Inpatient (IN) | payer BC ==
[~2020-08-18] VITALS: Ht 167.6 cm; Wt 97.5 kg
[~2020-08-18 10:26] MED LIST changes: +GLIP5TAB10 PO
[2020-08-18] MEDS ORDERED: METOCLOPRAMIDE HCL 10 MG/2 ML VIAL. IVP ONE (11:30)
[2020-08-18] MEDS ORDERED: ONDANSETRON PF 4 MG/2 ML VIAL. IVP ONE (11:30)
[2020-08-18] MEDS ORDERED: IV NORMAL SALINE 1000ML BAG 1,000 ML IV SCH (11:30)
[2020-08-18 11:42] LABS: BASO # 0.1 x10^3/uL (0.0-0.2); BASO % 1 % (0-3); EOS # 0.4 x10^3/uL (0.0-0.7); EOS % 5 % (0-3); HEMATOCRIT 23.6 % (36.0-47.0); HEMOGLOBIN 8.1 g/dL (12.0-15.5); LYMPH # 1.3 x10^3/uL (1.0-4.8); LYMPH % 16 % (24-48); MEAN CORPUSCULAR HEMOGLOBIN 29 pg (25-35); MEAN CORPUSCULAR HGB CONC 34 g/dL (31-37); MEAN CORPUSCULAR VOLUME 84 fL (79-100); MONO # 0.5 x10^3/uL (0.0-1.1); MONO % 6 % (0-9); NEUT # 5.6 x10^3/uL (1.8-7.7); NEUT % 72 % (31-73); PLATELET COUNT 187 x10^3/uL (140-400); RED CELL DISTRIBUTION WIDTH 13.7 % (11.5-14.5); WHITE BLOOD COUNT 7.8 x10^3/uL (4.0-11.0)
[2020-08-18] MEDS ORDERED: IV NORMAL SALINE 500ML BAG 500 ML IV ONE ×2 (11:45→14:30)
--- NOTE | 2020-08-18 11:54 | PHYS DOC ---
Past Medical History Past Medical History: Diabetes-Type II, Hypertension Past Surgical History: Other Additional Past Surgical Histo: EYE SURGERY, uterine , HYSTERECTOMY 04/25 Smoking Status: Never Smoker Alcohol Use: None General Adult EDM: Chief Complaint: NAUSEA/VOMITING/DIARRHA HPI: HPI: Patient is a 45 year old female who presents with last 5 days she has been having nausea and vomiting cannot keep any food down. She does have bilateral lower leg 3+ pitting edema. States she is recently diagnosed with renal failure in the last 4 to 5 months. She has not started any kind of dialysis. She states she is been vomiting both occasions. Patient denies abdominal pain, fever, headache, shortness of breath, chest pain, numbness or tingling, focal weakness, urinary symptoms. She states that she does have some dizziness when she is sitting or standing. She denies any pain at all. Patient's other medical history consist of diabetes, hypertension, UTI, ablation, hysterectomy. Review of Systems: Review of Systems: Constitutional: Denies fever or chills. [] Eyes: Denies change in visual acuity. [] HENT: Denies nasal congestion or sore throat. [] Respiratory: Denies cough or shortness of breath. [] Cardiovascular: Denies chest pain or + bilateral lower extremities edema. [] GI: Denies abdominal pain.+ nausea, +vomiting, denies bloody stools or diarrhea. [] : Denies dysuria. [] Musculoskeletal: Denies back pain or joint pain. [] Integument: Denies rash. [] Neurologic: Denies headache, focal weakness or sensory changes. + Dizziness [] Endocrine: Denies polyuria or polydipsia. [] Lymphatic: Denies swollen glands. [] Psychiatric: Denies depression or anxiety. [] Heart Score: C/O Chest Pain: No Risk Factors: Risk Factors: DM, Current or recent (<one month) smoker, HTN, HLP, family hist ory of CAD, obesity. Risk Scores: Score 0 - 3: 2.5% MACE over next 6 weeks - Discharge Home Score 4 - 6: 20.3% MACE over next 6 weeks - Admit for Clinical Observation Score 7 - 10: 72.7% MACE over next 6 weeks - Early Invasive Strategies Current Medications: Current Medications Medications (Trade) Dose Ordered Sig/Richar Start Time Stop Time Status Last Admin Dose Admin Metoclopramide HCl (Reglan Vial) 10 mg 1X ONCE 08/18/20 11:30 08/18/20 11:32 DC Ondansetron HCl (Zofran) 4 mg 1X ONCE 08/18/20 11:30 08/18/20 11:32 DC Sodium Chloride 500 ml @ 500 mls/hr 1X ONCE 08/18/20 11:45 08/18/20 12:44 Allergies: Allergies: Allergies Coded Allergies Type Severity Reaction Last Updated Verified I S O L A T I O N *CONTACT* Allergy Unknown 04/30/20 Yes No Known Medication Allergies Allergy Unknown 04/30/20 Yes Physical Exam: PE: Constitutional: Well developed, well nourished, no acute distress, non-toxic appearance. [] HENT: Normocephalic, atraumatic, bilateral external ears normal, oropharynx moist, no oral exudates, nose normal. [] Eyes: PERRLA, EOMI, conjunctiva normal, no discharge. [] Neck: Normal range of motion, no tenderness, supple, no stridor. [] Cardiovascular:Heart rate regular rhythm, no murmur [] Lungs & Thorax: Bilateral breath sounds clear to auscultation [] Abdomen: Bowel sounds normal, soft, no tenderness, no masses, no pulsatile masses. [] Skin: Warm, dry, no erythema, no rash. [] Back: No tenderness, no CVA tenderness. [] Extremities: No tenderness, no cyanosis, no clubbing, ROM intact, bilateral lower extremities 3+ pitting edema. [] Neurologic: Alert and oriented X 3, normal motor function, normal sensory func tion, no focal deficits noted. [] Psychologic: Affect normal, judgement normal, mood normal. [] Current Patient Data: Labs: Laboratory Tests Test 08/18/20 10:35 08/18/20 10:42 08/18/20 11:20 Glucose (Fingerstick) 111 mg/dL (70-99) H POC Urine HCG, Qualitative Hcg negative (Negative) White Blood Count 7.8 x10^3/uL (4.0-11.0) Red Blood Count 2.80 x10^6/uL (3.50-5.40) L Hemoglobin 8.1 g/dL (12.0-15.5) L Hematocrit 23.6 % (36.0-47.0) L Mean Corpuscular Volume 84 fL (79-100) Mean Corpuscular Hemoglobin 29 pg (25-35) Mean Corpuscular Hemoglobin Concent 34 g/dL (31-37) Red Cell Distribution Width 13.7 % (11.5-14.5) Platelet Count 187 x10^3/uL (140-400) Neutrophils (%) (Auto) 72 % (31-73) Lymphocytes (%) (Auto) 16 % (24-48) L Monocytes (%) (Auto) 6 % (0-9) Eosinophils (%) (Auto) 5 % (0-3) H Basophils (%) (Auto) 1 % (0-3) Neutrophils # (Auto) 5.6 x10^3/uL (1.8-7.7) Lymphocytes # (Auto) 1.3 x10^3/uL (1.0-4.8) Monocytes # (Auto) 0.5 x10^3/uL (0.0-1.1) Eosinophils # (Auto) 0.4 x10^3/uL (0.0-0.7) Basophils # (Auto) 0.1 x10^3/uL (0.0-0.2) Laboratory Tests 08/18/20 11:20 Vital Signs: Vital Signs Date Time Temp Pulse Resp B/P (MAP) Pulse Ox O2 Delivery O2 Flow Rate FiO2 08/18/20 10:48 97.3 14 182/85 (117) 98 Room Air 97.3 EKG: EK [] and read as sinus rhythm with 1 PVC and no STEMI. Radiology/Procedures: Radiology/Procedures: [] Impression: [facility] [address] [place] [address] IMAGING REPORT Signed PATIENT: JASSI ROA ACCOUNT: [id number] : 1975 LOCATION: ER AGE: 45 SEX: F EXAM STATUS: REG ER ORD. PHYSICIAN: JODY ARCE APRN REASON: vomiting, PROCEDURE: PORTABLE CHEST 1V Portable chest x-ray compared to similar exam dated March 24, 2020 for vomiti ng. FINDINGS: There is obscuration of the medial left hemidiaphragm with vague airspace disease in the left lung base concerning for pneumonic infiltrate. No pulmonary edema or pneumothorax. Heart size within normal limits. No significant soft tissue or osseous abnormalities. IMPRESSION: 1. Left basilar infiltrate. Electronically signed by: Michael Mcfarlane MD (08/18/2020 12:20 PM) [id number] DICTATED and SIGNED BY: MICHAEL MCFARLANE MD DATE: 08/18/20 [id number] [place] [address] IMAGING REPORT Signed PATIENT: JASSI ROA ACCOUNT: [id number] : 1975 LOCATION: ER AGE: 45 SEX: F EXAM STATUS: REG ER ORD. PHYSICIAN: JODY ARCE APRN REASON: dizziness PROCEDURE: CT HEAD WO CONTRAST EXAM: Head CT without contrast. HISTORY: Dizziness. TECHNIQUE: Computed tomographic images of the head were obtained without contrast. *One or more of the following individualized dose reduction techniques were utilized for this examination: 1. Automated exposure control. 2. Adjustment of the mA and/or kV according to patient size. 3. Use of iterative reconstruction technique. COMPARISON: 03/24/2020. FINDINGS: There is no acute or subacute extra-axial or intraparenchymal hemorrhage. There is no mass effect or midline shift. There is no hydrocephalus. The terrell-white matter differentiation pattern is intact. There are mucus retention cysts and there is mucosal thickening within the left maxillary sinus. The mastoid air cells are clear. The left orbit is partially excluded from the [id number]. IMPRESSION: No acute intracranial finding. Note is made that MRI is more sensitive for acute infarction. Electronically signed by: Rena Merino MD (08/18/2020 1:23 PM) [id number] DICTATED and SIGNED BY: RENA MERINO MD DATE: 08/18/20 [id number] [facility] [address] [place], [place] [id number] IMAGING REPORT Signed PATIENT: JASSI ROA ACCOUNT: [id number] : 1975 LOCATION: ER AGE: 45 SEX: F EXAM STATUS: REG ER ORD. PHYSICIAN: JODY ARCE APRN REASON: nausea and vomiting PROCEDURE: CT ABDOMEN PELVIS WO CONTRAST INDICATION: Reason: nausea and vomiting / Spl. Instructions: / History: . COMPARISON: April 16, 2020 TECHNIQUE: Axial CT images obtained through the abdomen and pelvis without contrast. One or more of the following individualized dose reduction techniques were utilized for this examination: 1. Automated exposure control; 2. Adjustment of the mA and/or kV according to patient size; 3. Use of iterative reconstruction technique. FINDINGS: Small bilateral pleural effusions. Scattered calcific atherosclerosis. Repeat demonstration of 14 mm low-density structure left external iliac region which could be from causes such as a small seroma, lymphocele or low-density lymph node. Nonspecific appearance. Prominent lymph node right external iliac region measuring about 12 mm short axis. No intrahepatic bile duct dilation. No peripancreatic fluid collection. There is some skin thickening at the anterior abdominal wall. Spleen unremarkable. Urinary bladder is distended at time of exam. Repeat demonstration of nonspecific perinephric stranding bilaterally. No hydronephrosis. Uterus is visualized. Small free fluid in the pelvis. Colonic diverticulosis. No dilated loops of bowel to suggest obstruction. Degenerative changes of the spine. IMPRESSION: * No hydronephrosis. * No evidence of bowel obstruction. * Small bilateral pleural effusions. * Skin thickening at anterior abdominal wall. Would correlate with physical exam findings in the region to ensure that there is not a pathologic cause such as cellulitis. Electronically signed by: Vu Reardon MD (08/18/2020 1:50 PM) [id number] DICTATED and SIGNED BY: VU REARDON MD DATE: 08/18/20 [id number] 0 Course & Med Decision Making: Course & Med Decision Making Pertinent Labs and Imaging studies reviewed. (See chart for details) COVID-19 CRITERIA: The patient was evaluated during the global COVID-19 pandemic, and that diagnosis was suspected/considered upon their initial pres entation. Their evaluation, treatment and testing was consistent with current guidelines for patients who present with complaints or symptoms that may be related to COVID-19. See HPI. Alert and oriented x4. Skin pink warm and dry. She is hypertensive in the 160s. Speaks in full clear sentences. Abdomen is soft and nontender. PERRLA. No nystagmus. No focal weakness. Chest x-ray shows left-sided pneumonia. Patient has acute on chronic renal failure. She has gotten 500 mL of normal saline in the ED. I have spoken to Dr. Cope and she states to give the patient a total of 1 L of fluid in the ED. She will come see the patient. Patient has been admitted to Dr. Morris. [] Renard Disclaimer: Dragon Disclaimer: This electronic medical record was generated, in whole or in part, using a voice recognition dictation system. NIHSS Stroke Scale NIH Stroke Scale: NIH Stroke Scale Response (Comments) Value Level of Consciousness: 0 Alert/Responsive 0 LOC Questions: 0 Answers both correctly 0 LOC Commands: 0 Performs both tasks 0 Best Gaze: 0 Normal 0 Visual: 0 No visual loss 0 Facial Palsy: 0 Normal, symmetrical 0 Motor - Left Arm 0 No drift 0 Motor - Right Arm 0 No drift 0 Motor - Left Leg 0 No drift 0 Motor: Right Leg 0 No drift 0 Limb Ataxia: 0 Absent 0 Sensory: 0 No loss 0 Best Language: 0 Normal 0 Dysathria: 0 Normal 0 Extinction and Inattention: 0 Normal 0 Total 0 COVID-19 Patient Risks: Age 65 or older: No Sign of co-morbidity: Yes Exp to person + for COVID: No Exp to PUI: No Travel from affected area: No Lower respiratory symptoms: No Fever: No Other: Yes (NAUSEA, VOMITING) PPE Use: Full PPE with N95 mask or PAPR: Yes Departure Departure Impression: Primary Impression: Acute on chronic renal failure Qualified Codes: N17.9 - Acute kidney failure, unspecified; N18.9 - Chronic kidney disease, unspecified Additional Impressions: Pneumonia Qualified Codes: J18.9 - Pneumonia, unspecified organism Person under investigation for COVID-19 Disposition: 09 ADMITTED INPT THIS HOSP Admitting Physician: OFELIA Condition: STABLE Referrals: UNKNOWN PCP NAME (PCP) JODY ARCE APRN Aug 18, 2020 11:54
[2020-08-18 11:57] LABS: CALCIUM 8.9 mg/dL (8.5-10.1); CREATININE 2.7 mg/dL (0.6-1.0); GFR 18.9; POTASSIUM 4.9 mmol/L (3.5-5.1)
[2020-08-18 11:58] LABS: BILIRUBIN,URINE NEGATIVE (NEG); CLARITY,URINE CLEAR; COLOR,URINE YELLOW; NITRITE,URINE NEGATIVE (NEG); PH,URINE 7.5 (<5.0-8.0); PROTEIN,URINE >=300 mg/dL (NEG-TRACE); UROBILINOGEN,URINE 0.2 mg/dL (0.2 mg/dL)
[2020-08-18 11:59] LABS: ALBUMIN 2.5 g/dL (3.4-5.0); ALBUMIN/GLOBULIN RATIO 0.6 (1.0-1.7); TOTAL BILIRUBIN 0.5 mg/dL (0.2-1.0); TOTAL PROTEIN 6.4 g/dL (6.4-8.2)
[2020-08-18 12:08] LABS: BACTERIA,URINE FEW /HPF (0-FEW); WBC,URINE 0 /HPF (0-4)
--- NOTE | 2020-08-18 12:23 | RAD ---
Portable chest x-ray compared to similar exam dated March 24, 2020 for vomiting. FINDINGS: There is obscuration of the medial left hemidiaphragm with vague airspace disease in the le ft lung base concerning for pneumonic infiltrate. No pulmonary edema or pneumothorax. Heart size with in normal limits. No significant soft tissue or osseous abnormalities. IMPRESSION: 1. Left basilar infiltrate. Electronically signed by: Michael Farrar MD (08/18/2020 12:20 PM) [id number]
[2020-08-18] MEDS ORDERED: cefTRIAXone IV Push 1 GM VIAL. IVP ONE (12:45)
[2020-08-18] MEDS ORDERED: AZITHRMYCN 500MG IVPB FOR OMNI 250 ML IV ONE (12:45)
--- NOTE | 2020-08-18 12:55 | EKG ---
[facility] [address] [place] [address] Test Date: 2020-08-18 Test Time: 12:29:25 Pat Name: JASSI ROA Department: Room: Gender: F Home Care Assistant: : 1975 Requested By: JODY ARCE Order Number: [id number] Reading MD: Measurements Intervals [place] Rate: 67 P: 0 MD: 156 QRS: 34 QRSD: 88 T: 43 QT: 412 QTc: 438 Interpretive Statements SINUS RHYTHM VENTRICULAR PREMATURE COMPLEX(ES) LOW LIMB LEAD VOLTAGE ABNORMAL ECG RI6.02 No previous ECG available for comparison
--- NOTE | 2020-08-18 13:25 | RAD ---
EXAM: Head CT without contrast. HISTORY: Dizziness. TECHNIQUE: Computed tomographic images of the head were obtained without contrast. *One or more of the following individualized dose reduction techniques were utilized for this examina tion: 1. Automated exposure control. 2. Adjustment of the mA and/or kV according to patient size. 3. Use of iterative reconstruction technique. COMPARISON: 03/24/2020. FINDINGS: There is no acute or subacute extra-axial or intraparenchymal hemorrhage. There is no mass effect or midline shift. There is no hydrocephalus. The terrell-white matter differentiation pattern is intact. There are mucus retention cysts and there is mucosal thickening within the left maxillary sinus. The mastoid air cells are clear. The left orbit is partially excluded from the [id number]. IMPRESSION: No acute intracranial finding. Note is made that MRI is more sensitive for acute infarcti on. Electronically signed by: Rena Dooley MD (08/18/2020 1:23 PM) [id number]
[2020-08-18 13:29] LABS: PROTHROMBIN TIME PATIENT 13.2 SEC (11.7-14.0)
--- NOTE | 2020-08-18 13:53 | RAD ---
INDICATION: Reason: nausea and vomiting / Spl. Instructions: / History: . COMPARISON: April 16, 2020 TECHNIQUE: Axial CT images obtained through the abdomen and pelvis without contrast. One or more of the following individualized dose reduction techniques were utilized for this examinat ion: 1. Automated exposure control; 2. Adjustment of the mA and/or kV according to patient size; 3 . Use of iterative reconstruction technique. FINDINGS: Small bilateral pleural effusions. Scattered calcific atherosclerosis. Repeat demonstration of 14 mm low-density structure left external iliac region which could be from ca uses such as a small seroma, lymphocele or low-density lymph node. Nonspecific appearance. Prominent lymph node right external iliac region measuring about 12 mm short axis. No intrahepatic bile duct dilation. No peripancreatic fluid collection. There is some skin thickening at the anterior abdominal wall. Spleen unremarkable. Urinary bladder is distended at time of exam. Repeat demonstration of nonspecific perinephric stranding bilaterally. No hydronephrosis. Uterus is visualized. Small free fluid in the pelvis. Colonic diverticulosis. No dilated loops of bowel to suggest obstruction. Degenerative changes of the spine. IMPRESSION: * No hydronephrosis. * No evidence of bowel obstruction. * Small bilateral pleural effusions. * Skin thickening at anterior abdominal wall. Would correlate with physical exam findings in the reg ion to ensure that there is not a pathologic cause such as cellulitis. Electronically signed by: Richard Reardon MD (08/18/2020 1:50 PM) [id number]
[2020-08-18] MEDS ORDERED: ONDANSETRON PF 4 MG/2 ML VIAL. IV PRN (14:30)
[2020-08-18 17:50] VITALS: BP 157/73
[2020-08-18] MEDS ORDERED: LABETALOL 20 MG/4 ML DISP.SYRIN. IVP PRN (18:15)
--- NOTE | 2020-08-18 18:16 | PDOC1 ---
History and Physical Date of Admission Date of Admission DATE: 08/18/20 TIME: 18:12 Identification/Chief Complaint Chief Complaint Nausea & vomiting Source Source: Caregiver, Patient History of Present Illness History of Present Illness Patient is a 45-year-old female with past medical history DM2, CKD, who presents to the ED with complaints of worsening nausea and vomiting over the past 5 days. She denies any significant aggravating or alleviating factors. She denies diarrhea. Upon evaluation in the ED WBC was within limits and creatinine was 2.7. She received IV fluids and broad-spectrum antibiotics in ED. Will admit patient for further medical management. Past Medical History Cardiovascular: HTN Endocrine: Diabetes Past Surgical History Past Surgical History: Other (D&C) Family History Family History: Diabetes, High Cholestrol, Hypertension Social History Smoke: No ALCOHOL: none Drugs: None Current Problem List Problem List Problems Medical Problems: (1) Acute on chronic renal failure Status: Acute (2) Person under investigation for COVID-19 Status: Acute (3) Pneumonia Status: Acute Current Medications Current Medications Current Medications Sodium Chloride 1,000 ml @ 1,000 mls/hr Q1H IV ; Start 08/18/20 at 11:30; Stop 08/18/20 at 12:29; Status Cancel Metoclopramide HCl (Reglan Vial) 10 mg 1X ONCE IVP Last administered on 08/18/20at 12:30; Start 08/18/20 at 11:30; Stop 08/18/20 at 11:32; Status DC Ondansetron HCl (Zofran) 4 mg 1X ONCE IVP Last administered on 08/18/20at 12:29; Start 08/18/20 at 11:30; Stop 08/18/20 at 11:32; Status DC Sodium Chloride 500 ml @ 500 mls/hr 1X ONCE IV Last administered on 08/18/20at 12:23; Start 08/18/20 at 11:45; Stop 08/18/20 at 12:44; Status DC Lorazepam (Ativan Inj) 0.5 mg 1X ONCE IVP Last administered on 08/18/20at 12:33; Start 08/18/20 at 12:15; Stop 08/18/20 at 12:16; Status DC Azithromycin 250 ml @ 250 mls/hr 1X ONCE IV Last administered on 08/18/20at 14:21; Start 08/18/20 at 12:45; Stop 08/18/20 at 13:44; Status DC Ceftriaxone Sodium (Rocephin) 1 gm 1X ONCE IVP Last administered on 08/18/20at 14:18; Start 08/18/20 at 12:45; Stop 08/18/20 at 12:46; Status DC Sodium Chloride 500 ml @ 500 mls/hr 1X ONCE IV Last administered on 08/18/20at 14:37; Start 08/18/20 at 14:30; Stop 08/18/20 at 15:29; Status DC Ondansetron HCl (Zofran) 4 mg PRN Q8HRS PRN IV NAUSEA/VOMITING; Start 08/18/20 at 14:30; Stop 08/19/20 at 14:29 Active Scripts Active Lisinopril 40 Mg Tablet 20 Mg PO QHS 30 Days Amlodipine Besylate 10 Mg Tablet 10 Mg PO QHS 30 Days Reported Glipizide 5 Mg Tablet 5 Mg PO DAILY Levemir Flextouch (Insulin Detemir) 100 Unit/1 Ml Insuln.pen 30 Unit SQ [id number] Levemir Flextouch (Insulin Detemir) 100 Unit/1 Ml Insuln.pen 50 Unit SQ HS Allergies Allergies: Coded Allergies: I S O L A T I O N *CONTACT* (Verified Allergy, Unknown, 04/30/20) ESBL No Known Medication Allergies (Verified Allergy, Unknown, 04/30/20) ROS Review of System GENERAL: No history of weight change, weakness or fevers. SKIN: No bruising, hair changes or rashes. EYES: No blurred, double or loss of vision. NOSE AND THROAT: No history of nosebleeds, hoarseness or sore throat. HEART: Denies chest pain, denies palpitations. LUNGS: Denies cough, hemoptysis, wheezing or shortness of breath. GASTROINTESTINAL: Nausea and vomiting. Denies abdominal pain, denies diarrhea. GENITOURINARY: Denies dysuria, frequency, urgency, hematuria. NEUROLOGIC: Denies history of numbness, tingling, tremor or weakness. PSYCHIATRIC: Denies anxiety, denies depression. ENDOCRINE: No history of heat or cold intolerance, polyuria or polydipsia. EXTREMITIES: Denies muscle weakness, joint pain, pain on walking or stiffness. Physical Exam Physical Exam General: Alert, Oriented X3, Cooperative, No acute distress HEENT: PERRLA, EOMI Lungs: Left basilar rales. Normal air movement Heart: RRR, no murmurs Cardiovascular: S1, S2 Abdomen: Normal bowel sounds, Soft, No tenderness Extremities: No clubbing, No cyanosis Skin: No rashes, No significant lesion Neuro: Normal speech, Normal tone, Sensation intact Psych/Mental Status: Mental status NL, Mood NL Vitals Vitals Vital Signs Date Time Temp Pulse Resp B/P (MAP) Pulse Ox O2 Delivery O2 Flow Rate FiO2 08/18/20 17:27 66 14 149/66 (93) 95 Room Air 08/18/20 10:48 97.3 97.3 Labs Labs Laboratory Tests Test 08/18/20 10:35 08/18/20 10:42 08/18/20 11:20 08/18/20 11:25 Glucose (Fingerstick) 111 mg/dL (70-99) Bedside Urine HCG, Qualitative Hcg negative (Negative) White Blood Count 7.8 x10^3/uL (4.0-11.0) Red Blood Count 2.80 x10^6/uL (3.50-5.40) Hemoglobin 8.1 g/dL (12.0-15.5) Hematocrit 23.6 % (36.0-47.0) Mean Corpuscular Volume 84 fL (79-100) Mean Corpuscular Hemoglobin 29 pg (25-35) Mean Corpuscular Hemoglobin Concent 34 g/dL (31-37) Red Cell Distribution Width 13.7 % (11.5-14.5) Platelet Count 187 x10^3/uL (140-400) Neutrophils (%) (Auto) 72 % (31-73) Lymphocytes (%) (Auto) 16 % (24-48) Monocytes (%) (Auto) 6 % (0-9) Eosinophils (%) (Auto) 5 % (0-3) Basophils (%) (Auto) 1 % (0-3) Neutrophils # (Auto) 5.6 x10^3/uL (1.8-7.7) Lymphocytes # (Auto) 1.3 x10^3/uL (1.0-4.8) Monocytes # (Auto) 0.5 x10^3/uL (0.0-1.1) Eosinophils # (Auto) 0.4 x10^3/uL (0.0-0.7) Basophils # (Auto) 0.1 x10^3/uL (0.0-0.2) Prothrombin Time 13.2 SEC (11.7-14.0) Prothromb Time International Ratio 1.0 (0.8-1.1) Sodium Level 138 mmol/L (136-145) Potassium Level 4.9 mmol/L (3.5-5.1) Chloride Level 103 mmol/L (98-107) Carbon Dioxide Level 28 mmol/L (21-32) Anion Gap 7 (6-14) Blood Urea Nitrogen 29 mg/dL (7-20) Creatinine 2.7 mg/dL (0.6-1.0) Estimated GFR (Cockcroft-Gault) 18.9 BUN/Creatinine Ratio 11 (6-20) Glucose Level 130 mg/dL (70-99) Lactic Acid Level 0.9 mmol/L (0.4-2.0) Calcium Level 8.9 mg/dL (8.5-10.1) Total Bilirubin 0.5 mg/dL (0.2-1.0) Aspartate Amino Transf (AST/SGOT) 16 U/L (15-37) Alanine Aminotransferase (ALT/SGPT) 30 U/L (14-59) Alkaline Phosphatase 103 U/L (46-116) Troponin I Quantitative < 0.017 ng/mL (0.000-0.055) FV-Aei-H-Type Natriuretic Peptide 5468 pg/mL (0-124) Total Protein 6.4 g/dL (6.4-8.2) Albumin 2.5 g/dL (3.4-5.0) Albumin/Globulin Ratio 0.6 (1.0-1.7) Lipase 72 U/L (73-393) Acetone Level Neg (NEG) Urine Collection Type Unknown Urine Color Yellow Urine Clarity Clear Urine pH 7.5 (<5.0-8.0) Urine Specific Twining 1.015 (1.000-1.030) Urine Protein >=300 mg/dL (NEG-TRACE) Urine Glucose (UA) 100 mg/dL (NEG) Urine Ketones (Stick) Negative mg/dL (NEG) Urine Blood Small (NEG) Urine Nitrite Negative (NEG) Urine Bilirubin Negative (NEG) Urine Urobilinogen Dipstick 0.2 mg/dL (0.2 mg/dL) Urine Leukocyte Esterase Negative (NEG) Urine RBC 11-20 /HPF (0-2) Urine WBC 0 /HPF (0-4) Urine Squamous Epithelial Cells Many /LPF Urine Bacteria Few /HPF (0-FEW) Laboratory Tests Test 08/18/20 10:35 08/18/20 10:42 08/18/20 11:20 08/18/20 11:25 Glucose (Fingerstick) 111 mg/dL (70-99) Bedside Urine HCG, Qualitative Hcg negative (Negative) White Blood Count 7.8 x10^3/uL (4.0-11.0) Red Blood Count 2.80 x10^6/uL (3.50-5.40) Hemoglobin 8.1 g/dL (12.0-15.5) Hematocrit 23.6 % (36.0-47.0) Mean Corpuscular Volume 84 fL (79-100) Mean Corpuscular Hemoglobin 29 pg (25-35) Mean Corpuscular Hemoglobin Concent 34 g/dL (31-37) Red Cell Distribution Width 13.7 % (11.5-14.5) Platelet Count 187 x10^3/uL (140-400) Neutrophils (%) (Auto) 72 % (31-73) Lymphocytes (%) (Auto) 16 % (24-48) Monocytes (%) (Auto) 6 % (0-9) Eosinophils (%) (Auto) 5 % (0-3) Basophils (%) (Auto) 1 % (0-3) Neutrophils # (Auto) 5.6 x10^3/uL (1.8-7.7) Lymphocytes # (Auto) 1.3 x10^3/uL (1.0-4.8) Monocytes # (Auto) 0.5 x10^3/uL (0.0-1.1) Eosinophils # (Auto) 0.4 x10^3/uL (0.0-0.7) Basophils # (Auto) 0.1 x10^3/uL (0.0-0.2) Prothrombin Time 13.2 SEC (11.7-14.0) Prothromb Time International Ratio 1.0 (0.8-1.1) Sodium Level 138 mmol/L (136-145) Potassium Level 4.9 mmol/L (3.5-5.1) Chloride Level 103 mmol/L (98-107) Carbon Dioxide Level 28 mmol/L (21-32) Anion Gap 7 (6-14) Blood Urea Nitrogen 29 mg/dL (7-20) Creatinine 2.7 mg/dL (0.6-1.0) Estimated GFR (Cockcroft-Gault) 18.9 BUN/Creatinine Ratio 11 (6-20) Glucose Level 130 mg/dL (70-99) Lactic Acid Level 0.9 mmol/L (0.4-2.0) Calcium Level 8.9 mg/dL (8.5-10.1) Total Bilirubin 0.5 mg/dL (0.2-1.0) Aspartate Amino Transf (AST/SGOT) 16 U/L (15-37) Alanine Aminotransferase (ALT/SGPT) 30 U/L (14-59) Alkaline Phosphatase 103 U/L (46-116) Troponin I Quantitative < 0.017 ng/mL (0.000-0.055) AR-Mqs-A-Type Natriuretic Peptide 5468 pg/mL (0-124) Total Protein 6.4 g/dL (6.4-8.2) Albumin 2.5 g/dL (3.4-5.0) Albumin/Globulin Ratio 0.6 (1.0-1.7) Lipase 72 U/L (73-393) Acetone Level Neg (NEG) Urine Collection Type Unknown Urine Color Yellow Urine Clarity Clear Urine pH 7.5 (<5.0-8.0) Urine Specific [place] 1.015 (1.000-1.030) Urine Protein >=300 mg/dL (NEG-TRACE) Urine Glucose (UA) 100 mg/dL (NEG) Urine Ketones (Stick) Negative mg/dL (NEG) Urine Blood Small (NEG) Urine Nitrite Negative (NEG) Urine Bilirubin Negative (NEG) Urine Urobilinogen Dipstick 0.2 mg/dL (0.2 mg/dL) Urine Leukocyte Esterase Negative (NEG) Urine RBC 11-20 /HPF (0-2) Urine WBC 0 /HPF (0-4) Urine Squamous Epithelial Cells Many /LPF Urine Bacteria Few /HPF (0-FEW) Images Images PORTABLE CHEST 1V Portable chest x-ray compared to similar exam dated March 24, 2020 for vomit ing. FINDINGS: There is obscuration of the medial left hemidiaphragm with vague airspace disease in the left lung base concerning for pneumonic infiltrate. No pulmonary edema or pneumothorax. Heart size within normal limits. No significant soft tissue or osseous abnormalities. IMPRESSION: 1. Left basilar infiltrate. T ABDOMEN PELVIS WO CONTRAST INDICATION: Reason: nausea and vomiting / Spl. Instructions: / History: . COMPARISON: April 16, 2020 TECHNIQUE: Axial CT images obtained through the abdomen and pelvis without contrast. One or more of the following individualized dose reduction techniques were utilized for this examination: 1. Automated exposure control; 2. Adjustment of the mA and/or kV according to patient size; 3. Use of iterative reconstruction technique. FINDINGS: Small bilateral pleural effusions. Scattered calcific atherosclerosis. Repeat demonstration of 14 mm low-density structure left external iliac region which could be from causes such as a small seroma, lymphocele or low-density lymph node. Nonspecific appearance. Prominent lymph node right external iliac region measuring about 12 mm short axis. No intrahepatic bile duct dilation. No peripancreatic fluid collection. There is some skin thickening at the anterior abdominal wall. Spleen unremarkable. Urinary bladder is distended at time of exam. Repeat demonstration of nonspecific perinephric stranding bilaterally. No hydronephrosis. Uterus is visualized. Small free fluid in the pelvis. Colonic diverticulosis. No dilated loops of bowel to suggest obstruction. Degenerative changes of the spine. IMPRESSION: * No hydronephrosis. * No evidence of bowel obstruction. * Small bilateral pleural effusions. * Skin thickening at anterior abdominal wall. Would correlate with physical exam findings in the region to ensure that there is not a pathologic cause such as cellulitis. T HEAD WO CONTRAST EXAM: Head CT without contrast. HISTORY: Dizziness. TECHNIQUE: Computed tomographic images of the head were obtained without con trast. *One or more of the following individualized dose reduction techniques were utilized for this examination: 1. Automated exposure control. 2. Adjustment of the mA and/or kV according to patient size. 3. Use of iterative reconstruction technique. COMPARISON: 03/24/2020. FINDINGS: There is no acute or subacute extra-axial or intraparenchymal hemorrhage. There is no mass effect or midline shift. There is no hydrocephalus. The terrell-white matter differentiation pattern is intact. There are mucus retention cysts and there is mucosal thickening within the left maxillary sinus. The mastoid air cells are clear. The left orbit is partially excluded from the [id number]-ttom. IMPRESSION: No acute intracranial finding. Note is made that MRI is more sensi tive for acute infarction. VTE Prophylaxis Ordered VTE Prophylaxis Devices: No VTE Pharmacological Prophylaxi: Yes Assessment/Plan Assessment/Plan Community-acquired pneumonia Intractable nausea vomiting Acute on chronic renal insufficiency Severe malnutrition Plan: Will continue IV antibiotic for community-acquired pneumonia with Rocephin and azithromycin IV fluids Resume home medications Resume home insulin regimen, MDSS insulin FEN - ADA diet PPX - Lovenox FULL CODE Dispo - inpatient for above Justifications for Admission Other Justification HTN Urgency JETHRO FUENTES MD Aug 18, 2020 18:16
[2020-08-18] MEDS ORDERED: ZOLPIDEM 5 MG TABLET. PO PRN (18:30)
[2020-08-18] MEDS ORDERED: ACETAMINOPHEN 325 MG TABLET. PO PRN (18:30)
[2020-08-18] MEDS ORDERED: MAG HYDROX/ALUMINUM HYD/SIMETH 30 ML ORAL.SUSP PO PRN (18:30)
[2020-08-18] MEDS ORDERED: CALCIUM CARBONATE 500 MG TAB.CHEW PO PRN (18:30)
[2020-08-18] MEDS ORDERED: traMADol 50 MG TABLET PO PRN (18:30)
[2020-08-18] MEDS ORDERED: BISACODYL 10 MG SUPP.RECT. PR PRN (18:30)
[2020-08-18] MEDS ORDERED: DEXTROSE 50% 25 GM / 50ML DISP.SYRIN. IV PRN (18:30)
[2020-08-18] MEDS ORDERED: MAGNESIUM HYDROXIDE 2,400 MG/30 ML ORAL.SUSP. PO PRN (18:30)
[2020-08-18] MEDS ORDERED: ONDANSETRON PF 4 MG/2 ML VIAL. IVP PRN (18:30)
--- NOTE | 2020-08-18 18:48 | CONS ---
DATE OF CONSULTATION: 08/18/2020 PULMONARY CONSULTATION ATTENDING PHYSICIAN: Dr. Jay Morris. REASON FOR CONSULTATION: Abnormal chest x-ray. HISTORY OF PRESENT ILLNESS: The patient is a 45-year-old female who does not speak much Armenian. She was brought into the hospital after she was having nausea and vomiting and could not keep anything down. She also had lower extremity edema. She was diagnosed with renal failure about 4-5 months ago. The patient had a chest x-ray, which was reviewed by me and shows tiny left basal effusion versus atelectasis. She underwent CT abdomen and pelvis and I have reviewed the imaging studies involving the lower part of the lungs. There was a small tiny bilateral pleural effusion with no definite consolidation. Upon limited questioning, she answers no to any cough. She has some exertional dyspnea. No reported fever. She is on room air with saturation of 98%. She denies any tobacco history. PAST MEDICAL HISTORY: Consistent with diabetes, hypertension, UTI, ablation, and hysterectomy. PAST SURGICAL HISTORY: As above. SOCIAL HISTORY: Nonsmoker. ALLERGIES: None. MEDICATIONS: Reviewed as listed in the [facility]AD including antibiotics and Lovenox for DVT prophylaxis. REVIEW OF SYSTEMS: Unable to obtain due to language barrier, but pertinent positive discussed in my history of present illness. SOCIAL HISTORY: Nonsmoker. PHYSICAL EXAMINATION: VITAL SIGNS: Reviewed. Blood pressure on the high side 157/73, afebrile, pulse ox 98% on room air. HEENT: Visual exam done via telemedicine. RESPIRATORY: She is in no obvious respiratory distress. No cough reported. ABDOMEN: Obese. EXTREMITIES: With bilateral pitting edema and some erythema. LABORATORY DATA: Reviewed. White cell count 7.8, hemoglobin 8.1 and platelets are 187. BUN 29 and a creatinine of 2.7. ProBNP is 5468. IMPRESSION: 1. Abnormal chest x-ray/CT of the abdomen with lower sections of the lungs consistent with tiny basal pleural effusion. No definite consolidation seen. Clinically, she has no symptoms of pneumonia. No cough, no fever. She is on room air. 2. No significant tobacco history. 3. Acute kidney injury versus chronic kidney disease. 4. Moderate protein-calorie malnutrition. 5. Lower extremity edema, likely secondary to nephrotic etiology. RECOMMENDATIONS: 1. From a pulmonary standpoint, she is stable. Clinically and radiographically, no signs of pneumonia. 2. No clinical suspicion for COVID-19. 3. Follow renal recommendations. 4. Currently, she is on room air. No further pulmonary workup is required. 5. We will be available for any further recommendations. We will see her on an as needed basis. Please call for any further help. This consultation was done via telemedicine. KOSTA WEST MD DR: CARINE/ofelia JOB#: [id number] / [id number]
[2020-08-18 19:00] VITALS: BP 144/66
[2020-08-18 20:07] LABS: INFLUENZA A PATIENT NEGATIVE (NEGATIVE); INFLUENZA B PATIENT NEGATIVE (NEGATIVE)
[2020-08-18] MEDS ORDERED: ENOXAPARIN 40 MG/0.4 ML SYRINGE. SQ SCH (21:00)
[2020-08-18] MEDS ORDERED: LISINOPRIL 20 MG TABLET PO SCH (21:00)
[2020-08-18] MEDS ORDERED: FLU VACC QS 2020-21(6MOS+)/PF 0.5 ML SYRINGE. VAX IM ONE (21:00)
[2020-08-18] MEDS ORDERED: amLODIPine BESYLATE 10 MG TABLET PO SCH (21:00)
[2020-08-18] MEDS: INSULIN GLARGINE SYRINGE. SQ SCH ×2 (21:31→22:17)
[2020-08-18 23:00] VITALS: BP 149/60
[2020-08-19 03:00] VITALS: BP 145/63
[2020-08-19 07:00] VITALS: BP 145/75
[2020-08-19] MEDS ORDERED: PANTOPRAZOLE IV PUSH 40 MG VIAL. IVP SCH (07:30)
[2020-08-19] MEDS: INSULIN LISPRO 300 UNITS/3 ML VIAL. SQ SCH ×2 (08:00→13:21)
[2020-08-19] MEDS ORDERED: INSULIN GLARGINE SYRINGE. SQ SCH ×2 (08:00→21:00)
--- NOTE | 2020-08-19 08:50 | PDOC ---
[facility] PROGRESS NOTE Date of Service DOS: DATE: 08/19/20 TIME: 08:34 Chief Complaint Chief Complaint Community-acquired pneumonia Intractable nausea vomiting Acute on chronic renal insufficiency Severe malnutrition Plan: Will continue IV antibiotic for community-acquired pneumonia with Rocephin and azithromycin IV fluids Resume home medications Resume home insulin regimen, MDSS insulin FEN - ADA diet PPX - Lovenox FULL CODE Dispo - inpatient for above History of Present Illness History of Present Illness Patient is a 45-year-old female with past medical history DM2, CKD, who presents to the ED with complaints of worsening nausea and vomiting over the past 5 days. She denies any significant aggravating or alleviating factors. She denies diarrhea. Upon evaluation in the ED WBC was within limits and creatinine was 2.7. She received IV fluids and broad-spectrum antibiotics in ED. Will admit patient for further medical management. 08/19/2020 Patient seen and evaluated. Afebrile, currently breathing on room air. She states she feels well, better than yesterday. Influenza negative, COVID-19 pending. Chart and labs reviewed. Discussed with Dr. Lainez, clinically stable with no radiographic signs of pneumonia. Procalcitonin <0.10. Appreciate nephrology recommendations. Greater than 30 minutes spent managing the discharge this patient. Vitals/I&O Vitals/I&O: Vital Signs Date Time Temp Pulse Resp B/P (MAP) Pulse Ox O2 Delivery O2 Flow Rate FiO2 08/19/20 07:00 96.2 69 18 145/75 (98) 98 Room Air 96.2 I & O 08/18/20 08/18/20 08/19/20 15:00 23:00 07:00 Intake Total 750 ml 500 ml 500 ml Output Total 0 ml Balance 750 ml 500 ml 500 ml Physical Exam General: Alert, Oriented X3, Cooperative Heart: Regular rate Lungs: Clear Abdomen: Soft Extremities: No clubbing, No cyanosis Skin: No rashes, No breakdown Labs Labs: Laboratory Tests Test 08/18/20 10:35 08/18/20 10:42 08/18/20 11:20 08/18/20 11:25 Glucose (Fingerstick) 111 mg/dL (70-99) Bedside Urine HCG, Qualitative Hcg negative (Negative) White Blood Count 7.8 x10^3/uL (4.0-11.0) Red Blood Count 2.80 x10^6/uL (3.50-5.40) Hemoglobin 8.1 g/dL (12.0-15.5) Hematocrit 23.6 % (36.0-47.0) Mean Corpuscular Volume 84 fL (79-100) Mean Corpuscular Hemoglobin 29 pg (25-35) Mean Corpuscular Hemoglobin Concent 34 g/dL (31-37) Red Cell Distribution Width 13.7 % (11.5-14.5) Platelet Count 187 x10^3/uL (140-400) Neutrophils (%) (Auto) 72 % (31-73) Lymphocytes (%) (Auto) 16 % (24-48) Monocytes (%) (Auto) 6 % (0-9) Eosinophils (%) (Auto) 5 % (0-3) Basophils (%) (Auto) 1 % (0-3) Neutrophils # (Auto) 5.6 x10^3/uL (1.8-7.7) Lymphocytes # (Auto) 1.3 x10^3/uL (1.0-4.8) Monocytes # (Auto) 0.5 x10^3/uL (0.0-1.1) Eosinophils # (Auto) 0.4 x10^3/uL (0.0-0.7) Basophils # (Auto) 0.1 x10^3/uL (0.0-0.2) Prothrombin Time 13.2 SEC (11.7-14.0) Prothromb Time International Ratio 1.0 (0.8-1.1) Sodium Level 138 mmol/L (136-145) Potassium Level 4.9 mmol/L (3.5-5.1) Chloride Level 103 mmol/L (98-107) Carbon Dioxide Level 28 mmol/L (21-32) Anion Gap 7 (6-14) Blood Urea Nitrogen 29 mg/dL (7-20) Creatinine 2.7 mg/dL (0.6-1.0) Estimated GFR (Cockcroft-Gault) 18.9 BUN/Creatinine Ratio 11 (6-20) Glucose Level 130 mg/dL (70-99) Lactic Acid Level 0.9 mmol/L (0.4-2.0) Calcium Level 8.9 mg/dL (8.5-10.1) Total Bilirubin 0.5 mg/dL (0.2-1.0) Aspartate Amino Transf (AST/SGOT) 16 U/L (15-37) Alanine Aminotransferase (ALT/SGPT) 30 U/L (14-59) Alkaline Phosphatase 103 U/L (46-116) Troponin I Quantitative < 0.017 ng/mL (0.000-0.055) ZE-Ssy-H-Type Natriuretic Peptide 5468 pg/mL (0-124) Total Protein 6.4 g/dL (6.4-8.2) Albumin 2.5 g/dL (3.4-5.0) Albumin/Globulin Ratio 0.6 (1.0-1.7) Lipase 72 U/L (73-393) Acetone Level Neg (NEG) Urine Collection Type Unknown Urine Color Yellow Urine Clarity Clear Urine pH 7.5 (<5.0-8.0) Urine Specific [place] 1.015 (1.000-1.030) Urine Protein >=300 mg/dL (NEG-TRACE) Urine Glucose (UA) 100 mg/dL (NEG) Urine Ketones (Stick) Negative mg/dL (NEG) Urine Blood Small (NEG) Urine Nitrite Negative (NEG) Urine Bilirubin Negative (NEG) Urine Urobilinogen Dipstick 0.2 mg/dL (0.2 mg/dL) Urine Leukocyte Esterase Negative (NEG) Urine RBC 11-20 /HPF (0-2) Urine WBC 0 /HPF (0-4) Urine Squamous Epithelial Cells Many /LPF Urine Bacteria Few /HPF (0-FEW) Test 08/18/20 19:00 08/18/20 21:56 08/19/20 00:13 08/19/20 06:34 Influenza Type A Antigen Negative (NEGATIVE) Influenza Type B Antigen Negative (NEGATIVE) Glucose (Fingerstick) 152 mg/dL (70-99) 132 mg/dL (70-99) 54 mg/dL (70-99) Test 08/19/20 07:23 Glucose (Fingerstick) 104 mg/dL (70-99) Assessment and Plan Assessmemt and Plan Problems Medical Problems: (1) Acute on chronic renal failure Status: Acute (2) Person under investigation for COVID-19 Status: Acute (3) Pneumonia Status: Acute Comment Review of Relevant I have reviewed the following items fransisco (where applicable) has been applied. Medications: Current Medications Medications (Trade) Dose Ordered Sig/Richar Route PRN Reason Start Time Stop Time Status Last Admin Dose Admin Metoclopramide HCl (Reglan Vial) 10 mg 1X ONCE IVP 08/18/20 11:30 08/18/20 11:32 DC 08/18/20 12:30 Ondansetron HCl (Zofran) 4 mg 1X ONCE IVP 08/18/20 11:30 08/18/20 11:32 DC 08/18/20 12:29 Sodium Chloride 500 ml @ 500 mls/hr 1X ONCE IV 08/18/20 11:45 08/18/20 12:44 DC 08/18/20 12:23 Lorazepam (Ativan Inj) 0.5 mg 1X ONCE IVP 08/18/20 12:15 08/18/20 12:16 DC 08/18/20 12:33 Azithromycin 250 ml @ 250 mls/hr 1X ONCE IV 08/18/20 12:45 08/18/20 13:44 DC 08/18/20 14:21 Ceftriaxone Sodium (Rocephin) 1 gm 1X ONCE IVP 08/18/20 12:45 08/18/20 12:46 DC 08/18/20 14:18 Sodium Chloride 500 ml @ 500 mls/hr 1X ONCE IV 08/18/20 14:30 08/18/20 15:29 DC 08/18/20 14:37 Amlodipine Besylate (Norvasc) 10 mg QHS PO 08/18/20 21:00 08/18/20 21:27 Lisinopril (Prinivil) 20 mg QHS PO 08/18/20 21:00 08/18/20 21:27 Insulin Glargine (Lantus Syringe) 50 unit QHS SQ 08/18/20 21:00 08/18/20 22:17 Enoxaparin Sodium (Lovenox 40mg Syringe) 40 mg Q24H SQ 08/18/20 21:00 08/18/20 21:26 Justifications for Admission Other Justification Community-acquired pneumonia, acute on chronic renal failure JETHRO FUENTES MD Aug 19, 2020 08:49
[2020-08-19] MEDS ORDERED: glipiZIDE 5 MG TABLET PO SCH (09:00)
--- NOTE | 2020-08-19 09:43 | PDOC2 ---
CONSULT Date of Consult Date of Consult DATE: 08/19/20 TIME: 09:43 Reason for Consult Reason for Consult: KASEY on CKD Source Source: Chart review History of Present Illness Reason for Visit: Pt is a 45 year old Italian-speaking female, with history of diabetes type 2, hypertension CKD, who presents to the ED with complaints of worsening nausea and vomiting over the past 5 days. She denies any significant aggravating or alleviating factors. She denies any CP or Increased SOB. Denies Urinary complaints . Denies weight change, weakness or fevers. Denies muscle weakness, joint pain She follows with us- seen by [facility] in Jun of this year with renal function at her baseline Past Medical History Cardiovascular: HTN Endocrine: Diabetes Past Surgical History Past Surgical History: Other (D&C) Family History Family History: Diabetes, High Cholestrol, Hypertension Social History No ALCOHOL: none Drugs: None Current Problem List Problem List Problems Medical Problems: (1) Acute on chronic renal failure Status: Acute (2) Person under investigation for COVID-19 Status: Acute (3) Pneumonia Status: Acute Current Medications Current Medications Current Medications Sodium Chloride 1,000 ml @ 1,000 mls/hr Q1H IV ; Start 08/18/20 at 11:30; Stop 08/18/20 at 12:29; Status Cancel Metoclopramide HCl (Reglan Vial) 10 mg 1X ONCE IVP Last administered on 08/18/20at 12:30; Start 08/18/20 at 11:30; Stop 08/18/20 at 11:32; Status DC Ondansetron HCl (Zofran) 4 mg 1X ONCE IVP Last administered on 08/18/20at 12:29; Start 08/18/20 at 11:30; Stop 08/18/20 at 11:32; Status DC Sodium Chloride 500 ml @ 500 mls/hr 1X ONCE IV Last administered on 08/18/20at 12:23; Start 08/18/20 at 11:45; Stop 08/18/20 at 12:44; Status DC Lorazepam (Ativan Inj) 0.5 mg 1X ONCE IVP Last administered on 08/18/20at 12:33; Start 08/18/20 at 12:15; Stop 08/18/20 at 12:16; Status DC Azithromycin 250 ml @ 250 mls/hr 1X ONCE IV Last administered on 08/18/20at 14:21; Start 08/18/20 at 12:45; Stop 08/18/20 at 13:44; Status DC Ceftriaxone Sodium (Rocephin) 1 gm 1X ONCE IVP Last administered on 08/18/20at 14:18; Start 08/18/20 at 12:45; Stop 08/18/20 at 12:46; Status DC Sodium Chloride 500 ml @ 500 mls/hr 1X ONCE IV Last administered on 08/18/20at 14:37; Start 08/18/20 at 14:30; Stop 08/18/20 at 15:29; Status DC Ondansetron HCl (Zofran) 4 mg PRN Q8HRS PRN IV NAUSEA/VOMITING; Start 08/18/20 at 14:30; Stop 08/19/20 at 14:29 Labetalol HCl (Normodyne Iv Push) 20 mg PRN Q2HR PRN IVP HYPERTENSION; Start 08/18/20 at 18:15 Ceftriaxone Sodium (Rocephin) 1 gm Q24H IVP ; Start 08/19/20 at 14:00; Stop 08/23/20 at 13:59 Azithromycin 250 mg/Sodium Chloride 250 ml @ 250 mls/hr Q24H IV ; Start 08/19/20 at 14:00; Stop 08/23/20 at 13:59 Insulin Human Lispro (HumaLOG) 0-7 UNITS TIDWMEALS SQ ; Start 08/19/20 at 08:00 Dextrose (Dextrose 50%-Water Syringe) 12.5 gm PRN Q15MIN PRN IV SEE COMMENTS; Start 08/18/20 at 18:30 Amlodipine Besylate (Norvasc) 10 mg QHS PO Last administered on 08/18/20at 21:27; Start 08/18/20 at 21:00 Glipizide (Glucotrol) 5 mg DAILY PO ; Start 08/19/20 at 09:00 Lisinopril (Prinivil) 20 mg QHS PO Last administered on 08/18/20at 21:27; Start 08/18/20 at 21:00 Insulin Glargine (Lantus Syringe) 30 unit DAILYWBKFT SQ ; Start 08/19/20 at 08:00 Insulin Glargine (Lantus Syringe) 50 unit QHS SQ Last administered on 08/18/20at 22:17; Start 08/18/20 at 21:00; Stop 08/19/20 at 08:37; Status DC Tramadol HCl (Ultram) 50 mg PRN Q6HRS PRN PO PAIN; Start 08/18/20 at 18:30 Ondansetron HCl (Zofran) 4 mg PRN Q6HRS PRN IVP NAUSEA/VOMITING; Start 08/18/20 at 18:30 Al Hydroxide/Mg Hydroxide (Mylanta Plus Xs) 30 ml PRN Q3HRS PRN PO HEARTBURN / GAS; Start 08/18/20 at 18:30 Calcium Carbonate/ Glycine (Tums) 500 mg PRN Q3HRS PRN PO UPSET STOMACH; Start 08/18/20 at 18:30 Zolpidem Tartrate (Ambien) 5 mg PRN QHS PRN PO INSOMNIA, MAY REPEAT IN 1HR; Start 08/18/20 at 18:30 Acetaminophen (Tylenol) 650 mg PRN Q6HRS PRN PO Headaches, Temp > 101.5F; Start 08/18/20 at 18:30 Magnesium Hydroxide (Milk Of Magnesia) 2,400 mg PRN Q12HR PRN PO CONSTIPATION; Start 08/18/20 at 18:30 Bisacodyl (Dulcolax Supp) 10 mg PRN DAILY PRN HI CONSTIPATION; Start 08/18/20 at 18:30 Enoxaparin Sodium (Lovenox 40mg Syringe) 40 mg Q24H SQ Last administered on 08/18/20at 21:26; Start 08/18/20 at 21:00 Pantoprazole Sodium (PROTONIX VIAL for IV PUSH) 40 mg DAILYAC IVP ; Start 08/19/20 at 07:30 Influenza Virus Vaccine Quadrival (Fluzone Quad [id number] Syringe) 0.5 ml ONCE ONCE VAX IM ; Start 08/18/20 at 21:00; Stop 08/18/20 at 21:01; Status DC Insulin Glargine (Lantus Syringe) 40 unit QHS SQ ; Start 08/19/20 at 21:00 Active Scripts Active Lisinopril 40 Mg Tablet 20 Mg PO QHS 30 Days Amlodipine Besylate 10 Mg Tablet 10 Mg PO QHS 30 Days Reported Glipizide 5 Mg Tablet 5 Mg PO DAILY Levemir Flextouch (Insulin Detemir) 100 Unit/1 Ml Insuln.pen 30 Unit SQ DAILYWBKFT Levemir Flextouch (Insulin Detemir) 100 Unit/1 Ml Insuln.pen 50 Unit SQ HS Allergies Allergies: Coded Allergies: I S O L A T I O N *CONTACT* (Verified Allergy, Unknown, 04/30/20) ESBL No Known Medication Allergies (Verified Allergy, Unknown, 04/30/20) ROS Review of System As per HPI, rest of the ROS is negative Physical Exam Physical Exam GEN: No apparent distress. HEENT: OM dry NECK: Supple LUNGS: Clear to auscultation, Non labored HEART: RRR, S!, S2 present. ABDOMEN: Soft, nontender. Positive bowel sounds EXTREMITIES: No clubbing, cyanosis. Trace Bilat LE edema + NEUROLOGIC: NA&O x 3, moves all extremities, no obvious focal deficits PSYCHIATRIC: Normal affect, normal mood. SKIN: No ulcerations or rashes, good skin turgor, no jaundice No Hanson, SP or CVA tenderness Vital Signs Vital Signs Date Time Temp Pulse Resp B/P (MAP) Pulse Ox O2 Delivery O2 Flow Rate FiO2 08/19/20 07:00 96.2 69 18 145/75 (98) 98 Room Air 96.2 Assessment & Plan KASEY - Pre-renal, 2/2 Vomiting s/p IVF in ER , No e/o UTI on UA, Perinephric stranding - same as in Mar reported on CT No labs ordered this am, discussed with ER CO[facility]ER last evening , Supportive care, strict I/O, Daily standing weight Avoid nephrotoxins, Check BMP CKD stage 3 B- KASEY in Mar 2020 , Post Hospitalization Cr 1.6-1.8 Nausea/ Vomiting POA - per pcp Lt basilar infiltrate- on CxR , No Pulm congestion reported Bilat Pl effusion Microscopic Hematuria- most likely sec to Hx of Uncontrolled DM ; had UTI in Mar 2020 Hx of UTI in the past Hx of HyperKalemia- Seen at [facility] ER in May with K of 6.5- Lisinopril held DM- with Diabetic Retinopathy, receives Injections . management per PCP Anemia - Hgb dropping , down from 10 to 8.1, Monitor. YO per primary. Tsat was 20 in Jun 2020 HTN Renal Doppler in mar 2020- No e/o GEORGE. Lisinopril dced in May 2/2 Hyperkalemia . Coreg was Increased . Resume Home Med (Reconcile Current meds in chart ) Labs Labs Laboratory Tests Test 08/18/20 10:35 08/18/20 10:42 08/18/20 11:20 08/18/20 11:25 Glucose (Fingerstick) 111 mg/dL (70-99) Bedside Urine HCG, Qualitative Hcg negative (Negative) White Blood Count 7.8 x10^3/uL (4.0-11.0) Red Blood Count 2.80 x10^6/uL (3.50-5.40) Hemoglobin 8.1 g/dL (12.0-15.5) Hematocrit 23.6 % (36.0-47.0) Mean Corpuscular Volume 84 fL (79-100) Mean Corpuscular Hemoglobin 29 pg (25-35) Mean Corpuscular Hemoglobin Concent 34 g/dL (31-37) Red Cell Distribution Width 13.7 % (11.5-14.5) Platelet Count 187 x10^3/uL (140-400) Neutrophils (%) (Auto) 72 % (31-73) Lymphocytes (%) (Auto) 16 % (24-48) Monocytes (%) (Auto) 6 % (0-9) Eosinophils (%) (Auto) 5 % (0-3) Basophils (%) (Auto) 1 % (0-3) Neutrophils # (Auto) 5.6 x10^3/uL (1.8-7.7) Lymphocytes # (Auto) 1.3 x10^3/uL (1.0-4.8) Monocytes # (Auto) 0.5 x10^3/uL (0.0-1.1) Eosinophils # (Auto) 0.4 x10^3/uL (0.0-0.7) Basophils # (Auto) 0.1 x10^3/uL (0.0-0.2) Prothrombin Time 13.2 SEC (11.7-14.0) Prothromb Time International Ratio 1.0 (0.8-1.1) Sodium Level 138 mmol/L (136-145) Potassium Level 4.9 mmol/L (3.5-5.1) Chloride Level 103 mmol/L (98-107) Carbon Dioxide Level 28 mmol/L (21-32) Anion Gap 7 (6-14) Blood Urea Nitrogen 29 mg/dL (7-20) Creatinine 2.7 mg/dL (0.6-1.0) Estimated GFR (Cockcroft-Gault) 18.9 BUN/Creatinine Ratio 11 (6-20) Glucose Level 130 mg/dL (70-99) Lactic Acid Level 0.9 mmol/L (0.4-2.0) Calcium Level 8.9 mg/dL (8.5-10.1) Total Bilirubin 0.5 mg/dL (0.2-1.0) Aspartate Amino Transf (AST/SGOT) 16 U/L (15-37) Alanine Aminotransferase (ALT/SGPT) 30 U/L (14-59) Alkaline Phosphatase 103 U/L (46-116) Troponin I Quantitative < 0.017 ng/mL (0.000-0.055) IK-Gau-V-Type Natriuretic Peptide 5468 pg/mL (0-124) Total Protein 6.4 g/dL (6.4-8.2) Albumin 2.5 g/dL (3.4-5.0) Albumin/Globulin Ratio 0.6 (1.0-1.7) Lipase 72 U/L (73-393) Acetone Level Neg (NEG) Urine Collection Type Unknown Urine Color Yellow Urine Clarity Clear Urine pH 7.5 (<5.0-8.0) Urine Specific Convoy 1.015 (1.000-1.030) Urine Protein >=300 mg/dL (NEG-TRACE) Urine Glucose (UA) 100 mg/dL (NEG) Urine Ketones (Stick) Negative mg/dL (NEG) Urine Blood Small (NEG) Urine Nitrite Negative (NEG) Urine Bilirubin Negative (NEG) Urine Urobilinogen Dipstick 0.2 mg/dL (0.2 mg/dL) Urine Leukocyte Esterase Negative (NEG) Urine RBC 11-20 /HPF (0-2) Urine WBC 0 /HPF (0-4) Urine Squamous Epithelial Cells Many /LPF Urine Bacteria Few /HPF (0-FEW) Test 08/18/20 19:00 08/18/20 21:56 08/19/20 00:13 08/19/20 06:34 Influenza Type A Antigen Negative (NEGATIVE) Influenza Type B Antigen Negative (NEGATIVE) Glucose (Fingerstick) 152 mg/dL (70-99) 132 mg/dL (70-99) 54 mg/dL (70-99) Test 08/19/20 07:23 08/19/20 07:25 Glucose (Fingerstick) 104 mg/dL (70-99) Procalcitonin < 0.10 ng/mL (0.00-0.10) Laboratory Tests Test 08/18/20 10:35 08/18/20 10:42 08/18/20 11:20 08/18/20 11:25 Glucose (Fingerstick) 111 mg/dL (70-99) Bedside Urine HCG, Qualitative Hcg negative (Negative) White Blood Count 7.8 x10^3/uL (4.0-11.0) Red Blood Count 2.80 x10^6/uL (3.50-5.40) Hemoglobin 8.1 g/dL (12.0-15.5) Hematocrit 23.6 % (36.0-47.0) Mean Corpuscular Volume 84 fL (79-100) Mean Corpuscular Hemoglobin 29 pg (25-35) Mean Corpuscular Hemoglobin Concent 34 g/dL (31-37) Red Cell Distribution Width 13.7 % (11.5-14.5) Platelet Count 187 x10^3/uL (140-400) Neutrophils (%) (Auto) 72 % (31-73) Lymphocytes (%) (Auto) 16 % (24-48) Monocytes (%) (Auto) 6 % (0-9) Eosinophils (%) (Auto) 5 % (0-3) Basophils (%) (Auto) 1 % (0-3) Neutrophils # (Auto) 5.6 x10^3/uL (1.8-7.7) Lymphocytes # (Auto) 1.3 x10^3/uL (1.0-4.8) Monocytes # (Auto) 0.5 x10^3/uL (0.0-1.1) Eosinophils # (Auto) 0.4 x10^3/uL (0.0-0.7) Basophils # (Auto) 0.1 x10^3/uL (0.0-0.2) Prothrombin Time 13.2 SEC (11.7-14.0) Prothromb Time International Ratio 1.0 (0.8-1.1) Sodium Level 138 mmol/L (136-145) Potassium Level 4.9 mmol/L (3.5-5.1) Chloride Level 103 mmol/L (98-107) Carbon Dioxide Level 28 mmol/L (21-32) Anion Gap 7 (6-14) Blood Urea Nitrogen 29 mg/dL (7-20) Creatinine 2.7 mg/dL (0.6-1.0) Estimated GFR (Cockcroft-Gault) 18.9 BUN/Creatinine Ratio 11 (6-20) Glucose Level 130 mg/dL (70-99) Lactic Acid Level 0.9 mmol/L (0.4-2.0) Calcium Level 8.9 mg/dL (8.5-10.1) Total Bilirubin 0.5 mg/dL (0.2-1.0) Aspartate Amino Transf (AST/SGOT) 16 U/L (15-37) Alanine Aminotransferase (ALT/SGPT) 30 U/L (14-59) Alkaline Phosphatase 103 U/L (46-116) Troponin I Quantitative < 0.017 ng/mL (0.000-0.055) ZG-Ylf-R-Type Natriuretic Peptide 5468 pg/mL (0-124) Total Protein 6.4 g/dL (6.4-8.2) Albumin 2.5 g/dL (3.4-5.0) Albumin/Globulin Ratio 0.6 (1.0-1.7) Lipase 72 U/L (73-393) Acetone Level Neg (NEG) Urine Collection Type Unknown Urine Color Yellow Urine Clarity Clear Urine pH 7.5 (<5.0-8.0) Urine Specific [place]oy 1.015 (1.000-1.030) Urine Protein >=300 mg/dL (NEG-TRACE) Urine Glucose (UA) 100 mg/dL (NEG) Urine Ketones (Stick) Negative mg/dL (NEG) Urine Blood Small (NEG) Urine Nitrite Negative (NEG) Urine Bilirubin Negative (NEG) Urine Urobilinogen Dipstick 0.2 mg/dL (0.2 mg/dL) Urine Leukocyte Esterase Negative (NEG) Urine RBC 11-20 /HPF (0-2) Urine WBC 0 /HPF (0-4) Urine Squamous Epithelial Cells Many /LPF Urine Bacteria Few /HPF (0-FEW) Test 08/18/20 19:00 08/18/20 21:56 3/16/21 00:13 08/19/20 06:34 Influenza Type A Antigen Negative (NEGATIVE) Influenza Type B Antigen Negative (NEGATIVE) Glucose (Fingerstick) 152 mg/dL (70-99) 132 mg/dL (70-99) 54 mg/dL (70-99) Test 08/19/20 07:23 08/19/20 07:25 Glucose (Fingerstick) 104 mg/dL (70-99) Procalcitonin < 0.10 ng/mL (0.00-0.10) Review All relevant outside records, renal labs, imaging studies, telemetry/EKG's were reviewed. Images Images Small bilateral pleural effusions. Scattered calcific atherosclerosis. Repeat demonstration of 14 mm low-density structure left external iliac region which could be from causes such as a small seroma, lymphocele or low-density lymph node. Nonspecific appearance. Prominent lymph node right external iliac region measuring about 12 mm short axis. No intrahepatic bile duct dilation. No peripancreatic fluid collection. There is some skin thickening at the anterior abdominal wall. Spleen unremarkable. Urinary bladder is distended at time of exam. Repeat demonstration of nonspecific perinephric stranding bilaterally. No hydron ephrosis. Uterus is visualized. Small free fluid in the pelvis. Colonic diverticulosis. No dilated loops of bowel to suggest obstruction. Degenerative changes of the spine. IMPRESSION: * No hydronephrosis. * No evidence of bowel obstruction. * Small bilateral pleural effusions. * Skin thickening at anterior abdominal wall. Would correlate with physical exam findings in the region to ensure that there is not a pathologic cause such as cellulitis. BELKYS HERNANDEZ MD Aug 19, 2020 09:43
[2020-08-19 11:00] VITALS: BP 158/66
[2020-08-19 11:34] LABS: CALCIUM 8.5 mg/dL (8.5-10.1); CREATININE 2.8 mg/dL (0.6-1.0); GFR 18.1; POTASSIUM 4.5 mmol/L (3.5-5.1)
--- NOTE | 2020-08-19 11:38 | PDOC3 ---
Discharge Summary Visit Information Date of Admission: Aug 18, 2020 Date of Discharge: Aug 19, 2020 Final Diagnosis Problems Medical Problems: (1) Acute on chronic renal failure Status: Acute (2) Person under investigation for COVID-19 Status: Acute (3) Pneumonia Status: Acute Brief Hospital Course Allergies Allergies Coded Allergies Type Severity Reaction Last Updated Verified I S O L A T I O N *CONTACT* Allergy Unknown 04/30/20 Yes No Known Medication Allergies Allergy Unknown 04/30/20 Yes Vital Signs Vital Signs Date Time Temp Pulse Resp B/P (MAP) Pulse Ox O2 Delivery O2 Flow Rate FiO2 08/19/20 11:00 96.8 80 18 158/66 (96) 99 Room Air 96.8 Lab Results Laboratory Tests Test 08/18/20 10:35 08/18/20 10:42 08/18/20 11:20 08/18/20 11:25 Glucose (Fingerstick) 111 mg/dL (70-99) Bedside Urine HCG, Qualitative Hcg negative (Negative) White Blood Count 7.8 x10^3/uL (4.0-11.0) Red Blood Count 2.80 x10^6/uL (3.50-5.40) Hemoglobin 8.1 g/dL (12.0-15.5) Hematocrit 23.6 % (36.0-47.0) Mean Corpuscular Volume 84 fL (79-100) Mean Corpuscular Hemoglobin 29 pg (25-35) Mean Corpuscular Hemoglobin Concent 34 g/dL (31-37) Red Cell Distribution Width 13.7 % (11.5-14.5) Platelet Count 187 x10^3/uL (140-400) Neutrophils (%) (Auto) 72 % (31-73) Lymphocytes (%) (Auto) 16 % (24-48) Monocytes (%) (Auto) 6 % (0-9) Eosinophils (%) (Auto) 5 % (0-3) Basophils (%) (Auto) 1 % (0-3) Neutrophils # (Auto) 5.6 x10^3/uL (1.8-7.7) Lymphocytes # (Auto) 1.3 x10^3/uL (1.0-4.8) Monocytes # (Auto) 0.5 x10^3/uL (0.0-1.1) Eosinophils # (Auto) 0.4 x10^3/uL (0.0-0.7) Basophils # (Auto) 0.1 x10^3/uL (0.0-0.2) Prothrombin Time 13.2 SEC (11.7-14.0) Prothromb Time International Ratio 1.0 (0.8-1.1) Sodium Level 138 mmol/L (136-145) Potassium Level 4.9 mmol/L (3.5-5.1) Chloride Level 103 mmol/L (98-107) Carbon Dioxide Level 28 mmol/L (21-32) Anion Gap 7 (6-14) Blood Urea Nitrogen 29 mg/dL (7-20) Creatinine 2.7 mg/dL (0.6-1.0) Estimated GFR (Cockcroft-Gault) 18.9 BUN/Creatinine Ratio 11 (6-20) Glucose Level 130 mg/dL (70-99) Lactic Acid Level 0.9 mmol/L (0.4-2.0) Calcium Level 8.9 mg/dL (8.5-10.1) Total Bilirubin 0.5 mg/dL (0.2-1.0) Aspartate Amino Transf (AST/SGOT) 16 U/L (15-37) Alanine Aminotransferase (ALT/SGPT) 30 U/L (14-59) Alkaline Phosphatase 103 U/L (46-116) Troponin I Quantitative < 0.017 ng/mL (0.000-0.055) HN-Wek-Z-Type Natriuretic Peptide 5468 pg/mL (0-124) Total Protein 6.4 g/dL (6.4-8.2) Albumin 2.5 g/dL (3.4-5.0) Albumin/Globulin Ratio 0.6 (1.0-1.7) Lipase 72 U/L (73-393) Acetone Level Neg (NEG) Urine Collection Type Unknown Urine Color Yellow Urine Clarity Clear Urine pH 7.5 (<5.0-8.0) Urine Specific Hazel 1.015 (1.000-1.030) Urine Protein >=300 mg/dL (NEG-TRACE) Urine Glucose (UA) 100 mg/dL (NEG) Urine Ketones (Stick) Negative mg/dL (NEG) Urine Blood Small (NEG) Urine Nitrite Negative (NEG) Urine Bilirubin Negative (NEG) Urine Urobilinogen Dipstick 0.2 mg/dL (0.2 mg/dL) Urine Leukocyte Esterase Negative (NEG) Urine RBC 11-20 /HPF (0-2) Urine WBC 0 /HPF (0-4) Urine Squamous Epithelial Cells Many /LPF Urine Bacteria Few /HPF (0-FEW) Test 08/18/20 19:00 08/18/20 21:56 08/19/20 00:13 08/19/20 06:34 Influenza Type A Antigen Negative (NEGATIVE) Influenza Type B Antigen Negative (NEGATIVE) Glucose (Fingerstick) 152 mg/dL (70-99) 132 mg/dL (70-99) 54 mg/dL (70-99) Test 08/19/20 07:23 08/19/20 07:25 08/19/20 10:52 Glucose (Fingerstick) 104 mg/dL (70-99) 219 mg/dL (70-99) Sodium Level 139 mmol/L (136-145) Potassium Level 4.5 mmol/L (3.5-5.1) Chloride Level 104 mmol/L (98-107) Carbon Dioxide Level 27 mmol/L (21-32) Anion Gap 8 (6-14) Blood Urea Nitrogen 28 mg/dL (7-20) Creatinine 2.8 mg/dL (0.6-1.0) Estimated GFR (Cockcroft-Gault) 18.1 Glucose Level 99 mg/dL (70-99) Calcium Level 8.5 mg/dL (8.5-10.1) Procalcitonin < 0.10 ng/mL (0.00-0.10) Laboratory Tests Test 08/18/20 19:00 08/18/20 21:56 08/19/20 00:13 08/19/20 06:34 Influenza Type A Antigen Negative (NEGATIVE) Influenza Type B Antigen Negative (NEGATIVE) Glucose (Fingerstick) 152 mg/dL (70-99) 132 mg/dL (70-99) 54 mg/dL (70-99) Test 08/19/20 07:23 08/19/20 07:25 08/19/20 10:52 Glucose (Fingerstick) 104 mg/dL (70-99) 219 mg/dL (70-99) Sodium Level 139 mmol/L (136-145) Potassium Level 4.5 mmol/L (3.5-5.1) Chloride Level 104 mmol/L (98-107) Carbon Dioxide Level 27 mmol/L (21-32) Anion Gap 8 (6-14) Blood Urea Nitrogen 28 mg/dL (7-20) Creatinine 2.8 mg/dL (0.6-1.0) Estimated GFR (Cockcroft-Gault) 18.1 Glucose Level 99 mg/dL (70-99) Calcium Level 8.5 mg/dL (8.5-10.1) Procalcitonin < 0.10 ng/mL (0.00-0.10) Brief Hospital Course Ms. Shannon is a 45 old female who presented with intractable nausea and vomiting, community-acquired pneumonia, and KASEY. Consultation was placed to pulmonology and nephrology. She received IV antibiotics and IV fluids. After discussion with service parts driver and negative procalcitonin, her antibiotics were discontinued. She was stable for discharge home with close PCP follow-up. Discharge Information Condition at Discharge: Improved Follow Up: Weeks Disposition/Orders: D/C to Home Scheduled Amlodipine Besylate (Amlodipine Besylate) 10 Mg Tablet, 10 MG PO QHS for htn for 30 Days, #30 Prescribed by: DAMASO YO MD on 03/28/20 0908 Last Taken: Unknown Dose on 08/17/20 Last Action: Continued on 08/18/201819 by JETHRO FUENTES MD Glipizide (Glipizide) 5 Mg Tablet, 5 MG PO DAILY for dm, (Reported) Entered as Reported by: IRON ABARCA on 04/16/201957 Last Taken: Unknown Dose on 08/17/20 Last Action: Continued on 08/18/201819 by JETHRO FUENTES MD Insulin Detemir (Levemir Flextouch) 100 Unit/1 Ml Insuln.pen, 50 UNIT SQ HS for diabetes, (Reported) Entered as Reported by: SALLY RAYMUNDO on 03/25/201658 Last Taken: Unknown Dose on 08/17/20 Last Action: Converted on 08/18/201819 by JETHRO FUENTES MD Insulin Detemir (Levemir Flextouch) 100 Unit/1 Ml Insuln.pen, 30 UNIT SQ DAILYWBKFT for Diabetes, (Reported) Entered as Reported by: SALLY RAYMUNDO on 10/20/20 1659 Last Taken: Unknown Dose on 08/17/20 Last Action: Converted on 08/18/201819 by JETHRO FUENTES MD Lisinopril (Lisinopril) 40 Mg Tablet, 20 MG PO QHS for htn for 30 Days, #15 Prescribed by: DAMASO YO MD on 03/28/20 105 Last Taken: Unknown Dose on 08/17/20 Last Action: Continued on 08/18/201819 by JETHRO FUENTES MD Justicifation of Admission Dx: Justifications for Admission: Justification of Admission Dx: Yes JETHRO FUENTES MD Aug 19, 2020 11:37
[2020-08-19] MEDS ORDERED: CARVEDILOL 12.5 MG TABLET. PO SCH (12:00)
[2020-08-19] MEDS ORDERED: AZITHROMYCIN 250 MG in IV NORMAL SALINE 250ML 250 ML IV SCH (14:00)
[2020-08-19] MEDS ORDERED: cefTRIAXone IV Push 1 GM VIAL. IVP SCH (14:00)
[2020-08-19 15:00] VITALS: BP 149/74
--- NOTE | 2020-08-19 15:15 | NUR ---
SW following for discharge planning. Pt to discharge home self-care today, 08/19. No SW needs on discharge.
--- NOTE | 2020-08-19 18:36 | NUR ---
Patient discharged home at approximately 1700. IV removed and v belt builder phone used for discharge education. Education printed out in [employer]. Patient verbalized understanding.
[2020-08-19] MEDS ORDERED: LACTOBACILLUS RHAMNOSUS GG 1 CAPSULE. PO SCH (21:00)
[2020-08-19 22:11] LABS: HEMOGLOBIN A1C 8.4 % (4.8-5.6)
== END 2020-08-19 18:00 | disposition home or self-care (01) | DRG 193 ==
LOC: ER 10:26 → ED HOLD 14:05 → 6 SOUTH 17:32
PROVIDERS: ADMIT Family Medicine; ATTEND Family Medicine
DX: J18.9 Pneumonia, unspecified organism (principal); E43 Unspecified severe protein-calorie malnutrition; N17.9 Acute kidney failure, unspecified; N18.9 Chronic kidney disease, unspecified; E11.22 Type 2 diabetes mellitus with diabetic chronic kidney disease; Z20.822 Contact with and (suspected) exposure to COVID-19; K57.30 Diverticulosis of large intestine without perforation or abscess without bleeding; I12.9 Hypertensive chronic kidney disease with stage 1 through stage 4 chronic kidney disease, or unspecified chronic kidney disease; Z68.34 Body mass index [BMI] 34.0-34.9, adult; Z90.710 Acquired absence of both cervix and uterus; Z88.8 Allergy status to other drugs, medicaments and biological substances; Z83.3 Family history of diabetes mellitus; Z82.49 Family history of ischemic heart disease and other diseases of the circulatory system
CPT/HCPCS: 36415; 70450; 71045; 74176; 80048; 80053; 81001; 81025; 82010; 82962; 83036; 83605; 83690; 83880; 84145; 84484; 85025; 85610; 87040; 87804; 93005; 96361; 96365; 96375; 99285; C9113; J0456; J0696; J1650; J1815; J2060; J2405; J2765; J7040; U0003; G0378